=== PATIENT | male | born 1965 | race Caucasian/White ===

== ENCOUNTER 2016-08-30 20:39 | Observation (INO) | payer MEDICAID ==
--- NOTE | 2016-08-30 20:34 | EDPHY ---
HPI/HX/ROS/PE/MDM Narrative: CHIEF COMPLAINT: Chest pain, ICD shock HPI: This patient is a 51-year-old male with ICD in place for history of SVT and hypertrophic cardiomyopathy who presents to the Emergency Department following an episode of chest pain with associated dyspnea precipitating an ICD shock at 1930 tonight. He reports that he was gardening when he began to feel acutely short of breath with associated dry coughing. He went inside to sit down when he felt worsening chest pain just prior to the shock sensation. He was transported via helicopter to the ED and reports feeling lightheaded in transport, persisting to the present. He has no additional complaints. Denies chest pain, dyspnea, or palpitations. He takes Coreg and aspirin daily and is followed by Dr. Baker, cardiology. REVIEW OF SYSTEMS: Aside from elements discussed in the HPI, a comprehensive 10-point review of systems was reviewed and is negative. PMH: AV pacer, SVT with recent ablation, hypertrophic cardiomyopathy. SOCIAL HISTORY: Lives in [place]. PHYSICAL EXAM: General:Patient is alert, in no acute distress. ENT:Eyes are normal to inspection. ENT inspection normal. Neck: Normal inspection. Full range of motion. Respiratory:No respiratory distress. Breath sounds normal bilaterally. Cardiovascular: Regular rate and rhythm. Strong peripheral pulses. Normal cap refill. Abdomen:The abdomen is nontender to palpation. There are no peritoneal signs. There are normal bowel sounds. Back: Normal to inspection. No tenderness to palpation. Skin: Normal color. No rash. Warm and dry. Extremities: Normal appearance. Full range of motion. Neuro: Oriented x3. Normal motor function. Normal sensory function. ED Course: 51-year-old male presents following ICD shock at approximately 1930 after episode of chest pain, shortness of breath. He is asymptomatic apart from mild lightheadedness at time of arrival. There are no significant exam findings. Will proceed with EKG, labs, and chest x-ray along with consultation with the patient's recordist chief. EKG was ordered and interpreted by myself: ventricular-paced complexes, rate 74. Please see [employer] system for official reading. 2058: Consultation with Dr. Thompson, recordist chief. Chest x-ray read by Dr. Rico reveals no acute cardiopulmonary disease. Labs reviewed and are unremarkable. Troponin is negative. [employer] interrogation reveals that the patient suffered an episode of ventricular fibrillation at 1934 lasting for 45 seconds, prompting the shock. 2140: Repeat consultation with Dr. Thompson. He will review the Biotronik interrogation before determining his recommended next steps. 2150: Dr. Thompson has reviewed interrogation records and recommends admission to the hospitalist. 2153: Consultation with Dr. Ceron, hospitalist, who accepts admission. - Data Points Imaging Results: Imaging Impressions Chest X-Ray 08/30/16 20:47 Impression: 1. Pacemaker unit and leads in stable position. 2. No active cardiopulmonary disease seen. Laboratory Results: Laboratory Results 08/30/16 20:10 08/30/16 20:10 08/30/16 08/30/16 08/30/16 20:10 20:10 20:10 WBC 6.51 10^3/uL 10^3/uL (3.80-9.50) RBC 5.51 10^6/uL 10^6/uL (4.40-6.38) Hgb 16.2 g/dL g/dL (13.7-17.5) Hct 45.5 % % (40.0-51.0) MCV 82.6 fL fL (81.5-99.8) MCH 29.4 pg pg (27.9-34.1) MCHC 35.6 g/dL g/dL (32.4-36.7) RDW 12.4 % % (11.5-15.2) Plt Count 340 10^3/uL 10^3/uL (150-400) MPV 9.8 fL fL (8.7-11.7) Neut % (Auto) 43.4 % % (39.3-74.2) Lymph % (Auto) 45.8 % H % (15.0-45.0) [place] % (Auto) 7.4 % % (4.5-13.0) Eos % (Auto) 2.0 % % (0.6-7.6) Baso % (Auto) 0.9 % % (0.3-1.7) Nucleat RBC Rel Count 0.0 % % (0.0-0.2) Absolute Neuts (auto) 2.83 10^3/uL 10^3/uL (1.70-6.50) Absolute Lymphs (auto) 2.98 10^3/uL 10^3/uL (1.00-3.00) Absolute Monos (auto) 0.48 10^3/uL 10^3/uL (0.30-0.80) Absolute Eos (auto) 0.13 10^3/uL 10^3/uL (0.03-0.40) Absolute Basos (auto) 0.06 10^3/uL 10^3/uL (0.02-0.10) Absolute Nucleated RBC 0.00 10^3/uL 10^3/uL (0-0.01) Immature Gran % 0.5 % % (0.0-1.1) Immature Gran # 0.03 10^3/uL 10^3/uL (0.00-0.10) Sodium 137 mEq/L mEq/L (134-144) Potassium 3.8 mEq/L mEq/L (3.5-5.2) Chloride 102 mEq/L mEq/L (97-110) Carbon Dioxide 22 mEq/l mEq/l (22-31) Anion Gap 13 mEq/L mEq/L (8-16) BUN 16 mg/dL mg/dL (7-23) Creatinine 1.1 mg/dL mg/dL (0.7-1.3) Estimated GFR > 60 Glucose 112 mg/dL H mg/dL (70-100) Calcium 9.9 mg/dL mg/dL (8.5-10.4) Magnesium 2.1 mg/dL mg/dL (1.6-2.3) Troponin I 0.023 ng/mL ng/mL (0-0.034) General Initial Vital Signs: Initial Vital Signs O2 Sat (%) 99 08/30/16 20:40 O2 Delivery Mode Nasal Cannula O2 (L/minute) 2 Allergies/Adverse Reactions: No Known Allergies Allergy (Verified 08/16/13 16:01) Home Medications: Medication Instructions Recorded Aspirin [Aspirin 325 mg (*)] 325 mg PO DAILY 08/30/16 Famotidine [Pepcid] 40 mg PO HS 08/30/16 HYDROcodone/APAP 10 [[place] 1 tab PO Q6 PRN 08/30/16 10/325 (*)] [place]-3 Fatty Acids [Fish Oil 1000 1,000 mg PO DAILY 08/30/16 mg (*)] traMADol [Ultram 50 mg (*)] 50 mg PO DAILY PRN 08/30/16 Metoprolol Tartrate [Lopressor 50 50 mg PO BID #60 tab 08/31/16 mg (*)] Departure - Departure Disposition: [facility] Inpatient Acute Clinical Impression: Ventricular fibrillation, ICD (implantable cardioverter-defibrillator) discharge Condition: Fair Report Scribed for: Timmy Omer Report Scribed by: Aura Horne Date of Report: 08/30/16 Time of Report: 20:34 Physician Review and Approval Statement: Portions of this note were transcribed by an ED scribe. I personally performed the history, physical exam, and medical decision making; and confirm the accuracy of the information in the transcribed note.
--- NOTE | 2016-08-30 20:50 | CPEKG ---
Heart Rate: 74 RR Interval: 811 P-R Interval: 280 QRSD Interval: 162 QT Interval: 428 QTC Interval: 475 P Crane: 78 QRS Crane: -74 T Wave Crane: 107 EKG Severity - ABNORMAL ECG - EKG Impression: VENTRICULAR-PACED COMPLEXES EKG Impression: VENTRICULAR PACING IS NEW IN COMPARISON TO PRIOR (07-OCT-13) Electronically Signed By: Parrish Tamayo 01-Sep-2016 09:56:59
[2016-08-30 20:55] LABS: % IMMATURE GRANULYOCYTES 0.5 % (0.0-1.1); ABSOLUTE IMMATURE GRANULOCYTES 0.03 10^3/uL (0.00-0.10); ADD DIFF? NO; ADD MORPH? NO; ADD SCAN? NO; ATYPICAL LYMPHOCYTE FLAG 20 (0-99); FRAGMENT RBC FLAG 0 (0-99); HEMATOCRIT 45.5 % (40.0-51.0); HEMOGLOBIN 16.2 g/dL (13.7-17.5); LEFT SHIFT FLG 0 (0-99); LIPEMIA HEMOLYSIS FLAG 90 (0-99); MEAN CELL HEMOGLOBIN 29.4 pg (27.9-34.1); MEAN CELL HEMOGLOBIN CONCENTR. 35.6 g/dL (32.4-36.7); MEAN CELL VOLUME 82.6 fL (81.5-99.8); MEAN PLATELET VOLUME 9.8 fL (8.7-11.7); PLATELET CLUMPS FLAG 0 (0-99); PLATELET COUNT 340 10^3/uL (150-400); RED BLOOD CELL COUNT 5.51 10^6/uL (4.40-6.38); RED CELL DISTRIBUTION WIDTH 12.4 % (11.5-15.2)
[2016-08-30 21:13] LABS: ANION GAP 13 mEq/L (8-16); CALCIUM 9.9 mg/dL (8.5-10.4); CARBON DIOXIDE 22 mEq/l (22-31); CHLORIDE 102 mEq/L (97-110); CREATININE 1.1 mg/dL (0.7-1.3); GLOMERULAR FILTRATION RATE > 60; GLUCOSE 112 mg/dL (70-100); POTASSIUM 3.8 mEq/L (3.5-5.2); SODIUM 137 mEq/L (134-144)
[2016-08-30 21:24] LABS: TROPONIN I 0.023 ng/mL (0-0.034)
[2016-08-30] MEDS ORDERED: ACETAMINOPHEN 325 MG TAB PO PRN (22:05)
[2016-08-30] MEDS ORDERED: ONDANSETRON DISINTEGRATING 4 MG TAB PO PRN (22:05)
[2016-08-30] MEDS ORDERED: ONDANSETRON 4 MG/2 ML VIAL IVP PRN (22:05)
[2016-08-30] MEDS ORDERED: HYDROCODONE/APAP 10/325 TAB PO PRN (23:33)
[2016-08-30] MEDS ORDERED: traMADol 50 MG TAB PO PRN (23:33)
[2016-08-30] MEDS ORDERED: POTASSIUM CL 20 MEQ/15 ML UDCUP PO ONE (23:34)
[2016-08-30] MEDS ORDERED: POTASSIUM CL 20 MEQ TAB PO ONE (23:34)
--- NOTE | 2016-08-31 00:23 | GHP ---
[f rep st] HISTORY AND PHYSICAL DATE OF ADMISSION: 08/30/2016 CHIEF COMPLAINT: Chest pain. ICD shock. HISTORY OF PRESENT ILLNESS: Patient is a 51-year-old male with history of HOCM status post myomectomy and aortic valvuloplasty in 2009, SVT, who presented to the ER after an episode of chest pain, shortness of breath, and then ICD shock at 7:30 this evening. He was outside gardening when he felt short of breath and had a coughing attack. He sat down on his deck and had substernal chest pressure as if someone sitting on it, and then was shocked. Device interrogation showed 45 seconds of ventricular fibrillation. He had a similar episode approximately the same time last night under similar circumstance when watering plants. He felt short of breath, dizzy, and felt like blacking out. He had mild chest pain and then was shocked to a lesser degree. He saw Dr. Grissom at [facility] today for a scheduled echocardiogram. [place] fine during that visit, just fatigued. 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 Trying to stay hydrated. Has chest pain daily that exacerbated by heat. He thinks his chest pain has been less recently up until these last 2 days. REVIEW OF SYSTEMS: I completed a 10-point review of systems, negative except noted in HPI. PAST MEDICAL HISTORY: HOCM status post myomectomy, 2009. Aortic valvuloplasty. SVT. ICD placement, 2011. Alcohol septal ablation, July 2016. Evaluated by Dr. Pavon at [facility]. Nonobstructive CAD on catheterization in July 2016. PAST SURGICAL HISTORY: Myomectomy, 2009. Aortic valvuloplasty. ICD placement , 2011. Several bone fractures. FAMILY HISTORY: He was not close to family growing up but does not recall sudden cardiac . 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 Occasional alcohol. Occasional marijuana. No cigarettes. He has a 14-year-old son. ALLERGIES: No known drug allergies. MEDICATIONS: Coreg 37.5 b.i.d., recently up titrated. Tramadol 50 mg p.o. daily p.r.n. [place] as needed. Pepcid 40 mg q.h.s. Fish oil. Aspirin 325. PHYSICAL EXAMINATION: VITAL SIGNS: Temperature 36.9, blood pressure 118/55, heart rate 68, respirations 16, 97% on room air. GENERAL: Patient is lying in bed, in no acute distress. HEENT: PERRLA. EOMI. Moist mucous membranes. CV : Regular rate and rhythm. Murmur heard throughout. No lower extremity edema. LUNGS: Clear. No crackles or wheeze. ABDOMEN: Soft, nontender, nondistended. Positive bowel sounds. : No suprapubic tenderness. MUSCULOSKELETAL: 5/5 upper and lower extremity strength. SKIN: Warm, dry. No ulceration. NEURO: 2 through 12 intact. PSYCH: Alert and oriented x3. LABS: WBC 6, hemoglobin 16, hematocrit 45, platelets 340. Sodium 137, potassium 3.8 chloride 102, carbon dioxide 22, glucose 112. Calcium 9.9. Magnesium 2.1. Troponin 0.023. Chest x-ray personally reviewed by me. Pacemaker with leads in place. No effusion or opacity. EKG personally reviewed by me to be paced. ASSESSMENT AND PLAN: 1. Ventricular fibrillation with subsequent implantable cardioverter- defibrillator shock: 2 episodes in the last 2 days. 45-second event this evening with shock. Initial EKG and troponin negative for ischemia. Repeat both and monitor on telemetry in PCU. Dr. Thompson with Cardiology was consulted from the emergency room. Ensure potassium and magnesium are at 4 and 2. 2. HOCM: status post myomectomy and recently alcohol septal ablation in July 2016. He is followed by Dr. Pavon [facility]. Coreg was recently increased to 37.5.mg BID. 3. Chest pain: nonobstructive coronary disease seen on catheterization in July from [facility]. Will cycle troponin and EKG here. Continue beta-emre and aspirin. Cardiology to evaluate in the morning. 4. Diet: N.p.o. 5. Deep venous thrombosis prophylaxis. Low risk, ambulatory. DISPOSITION: Patient warrants observation admission given acute ventricular fibrillation with ICD shock. Will continue PCU monitoring on telemetry and cardiac evaluation. /[id number]/MODL MTDD
[2016-08-31 02:36] LABS: TROPONIN I 0.106 ng/mL (0-0.034)
[2016-08-31 07:27] VITALS: PULSE 61; RESP 16
[2016-08-31] MEDS ORDERED: CARVEDILOL 6.25 MG TAB PO SCH (08:00)
[2016-08-31] MEDS ORDERED: CARVEDILOL 25 MG TAB PO SCH (08:00)
[2016-08-31] MEDS ORDERED: ENOXAPARIN 40 MG/0.4 ML SYR SC SCH (09:00)
[2016-08-31] MEDS ORDERED: ASPIRIN 325 MG TAB PO SCH (09:00)
[2016-08-31] MEDS ORDERED: OMEGA-3 FATTY ACIDS 1,000 MG CAP PO SCH (09:00)
[2016-08-31 09:05] LABS: ANION GAP 8 mEq/L (8-16); CALCIUM 9.3 mg/dL (8.5-10.4); CARBON DIOXIDE 25 mEq/l (22-31); CHLORIDE 106 mEq/L (97-110); CREATININE 0.9 mg/dL (0.7-1.3); GLOMERULAR FILTRATION RATE > 60; GLUCOSE 95 mg/dL (70-100); POTASSIUM 4.5 mEq/L (3.5-5.2); SODIUM 139 mEq/L (134-144)
--- NOTE | 2016-08-31 11:25 | HOSPPROG ---
Hospitalist Progress Note Assessment/Plan: 51 yo male with hx of HOCM #Vfib, s/p ICD shock #Recent Septal Ablation July 2016 #Hypertrophic obstructive cardiomyopathys/p Myomectomy #Chest Pain, none currently #Indeterminate Troponin Plan: -Await reccs from Dr. Thompson -The patient sees Dr. Pavon at [facility] -Continue with Aspirin -Cont with Coreg -F/U TTE -Lovenox for DVT proph -EKG, personally reviewed, paced rhythm Subjective: No CP or SOB. Objective: Vital Signs Temp Pulse Resp BP Pulse Ox 36.6 C 61 16 109/59 L 94 08/31/16 07:26 08/31/16 07:26 08/31/16 07:26 08/31/16 07:26 08/31/16 07:26 Laboratory Results 08/31/16 08:29 08/30/16 08/31/16 09/01/16 05:59 05:59 05:59 Intake Total 240 Balance 240 - Physical Exam Constitutional: no apparent distress, not in pain Eyes: PERRL, EOMI Ears, Nose, Mouth, Throat: moist mucous membranes, hearing normal, ears appear normal Cardiovascular: systolic murmur, No JVD Respiratory: no respiratory distress, no rales or rhonchi, clear to auscultation Gastrointestinal: normoactive bowel sounds, soft, non-tender abdomen, no palpable masses Skin: warm Neurologic: AAOx3 Psychiatric: interacting appropriately, not anxious, not encephalopathic ICD10 Worksheet Patient Problems: Problems Problem Status Onset ICD (implantable cardioverter-defibrillator) discharge Acute Ventricular fibrillation Acute Hypertrophic cardiomyopathy Acute
--- NOTE | 2016-08-31 11:43 | ECHO ---
[id number] + + [phone] : : [place] [address] : : [phone] + + Adult Echocardiographic Report + -----+ :Name: ROBIN LUNDBERG JStudy Date: 08/31/2016 09:48 AM : : Hospital Admission Number: [id number] Location : 208: :: 1965 Gender: Male Height: 70 in : :Age: 51 yrs Race: WH,White Weight: 180 lb : :Reason For Study: HCM/VT : : BSA: 2.0 meters2 : :History: HOCM/Septal ablation/ICD/pacer : + -----+ MMode/2D Measurements \T\ Calculations MV Diam: 2.8 cm Ao root diam: LVOT diam: 2.5 cmLVLd ap4: 9.5 cm 3.6 cm LVOT area: EDV(MOD-sp4): LA dimension: 5.0 cm2 145.0 ml 5.2 cm LVLs ap4: 9.1 cm ESV(MOD-sp4): 66.0 ml EF(MOD-sp4): 54.5 % SV(MOD-sp4): 79.0 ml Normal Measurement Values: + + :LVIDd (3.5-5.7cm) IVSd (0.6-1.1cm) LVPWd (0.6-1.1cm) Aortic Root (2.0-3.7cm)Left Atrium (1.5-4.0cm): :LV Vol(d) (76-115ml) LV Vol(s) (29-48ml) Ejec Fraction (50-65%)PV Cortez (0.6- 1.2m/s) TV Cortez (0.4-1.0m/s) : :MV E [place] (0.8-1.0m/s)MV A [place] (0.3-1.0m/s)LVOT [place] (0.7-1.2m/s) Asc Ao [place] ( 0.9-1.8m/s) : + + Doppler Measurements \T\ Calculations MV area (1 diam): Ao mean PG: AI max cortez: LV V1 mean P.4 cm2 11.4 mmHg 396.1 cm/sec 5.0 mmHg MV Flow area(1diam):Ao V2 mean: AI max P.8 mmHgLV V1 mean: 154.4 cm/sec AI dec slope: 97.3 cm/sec 6.4 cm2 Ao V2 VTI: 47.3 cm 281.9 cm/sec2 LV V1 VTI: JUANITA(I,D): 3.6 cm2 AI P1/2t: 411.6 msec33.8 cm MR max cortez: SV(LVOT): 169.7 ml TR max cortez: 451.6 cm/sec 228.0 cm/sec MR max P.6 mmHg TR max P.8 mmHg RAP systole: 5.0 mmHg RVSP(TR): 25.8 mmHg Left Ventricle The left ventricle is normal in size. There is normal left ventricular wall thickness. Ejection Fraction = 55-60%. Septal motion is consistent with conduction abnormality. Focal area of akinesis in the mid anteroseptum. Right Ventricle The right ventricle is normal in size and function. There is a pacemaker lead in the right ventricle. Atria The left atrium is moderately dilated. Right atrial size is normal. The interatrial septum is intact with no evidence for an atrial septal defect. Mitral Valve MV leaflets appear to not coapt completely. The mitral valve leaflets appear thickened, but open well. There is no evidence of mitral valve prolapse. There is no mitral valve stenosis. There is moderate to severe mitral regurgitation. Tricuspid Valve Normal tricuspid valve. There is mild tricuspid regurgitation. Right ventricular systolic pressure is normal. Aortic Valve The aortic valve opens well. Mild Aortic Valve Calcification. AV max PG is 23mmHG. AV mean PG is 11mmHG. LVOT gradient today is 13mmHG. Moderate to severe aortic regurgitation. Pulmonic Valve The pulmonic valve is normal in structure and function. There is no pulmonic valvular regurgitation. Great Vessels The aortic root is normal size. Pericardium/Pleural There is no pericardial effusion. Conclusion A complete two-dimensional transthoracic echocardiogram was performed (2D, M-mode, Doppler and color flow Doppler). Normal LV size and systolic function. Septal motion is consistent with conduction abnormality related to pacing. Ejection Fraction = 55-60%. Focal area of akinesis in the mid anteroseptum. There is a pacemaker lead in the right ventricle. The left atrium is moderately dilated. The mitral valve leaflets are thickend. MV leaflets appear to not coapt completely. There is moderate to severe mitral regurgitation. There is mild tricuspid regurgitation. Mild aortic sclerosis. AV max PG is 23mmHG. AV mean PG is 11mmHG. LVOT gradient today is 13mmHG. Moderate to severe aortic regurgitation. There is no significant dynamic LVOT gradient. Final Reading Physician: Eriberto Mckeon signed on 08/31/2016 11:43 AM Ordering Physician: Mark Thompson Performed By: Zuleyka Quinn RDCS
[2016-08-31 11:56] VITALS: BP 103/46; TEMP 98; O2SAT 91
--- NOTE | 2016-08-31 13:24 | PDDCSUM ---
Discharge Summary Discharge Summary: 51 yo male with hx of HOCM admitted after 2 ICD shocks following Ventricular Tachycardia. Dr. Thompson with Cardiology provided consultation. They have stopped Carvedilol and started Metoprolol. They have also adjusted the ICD so that shock is delivered at 16 abnormal beats and not 8. The patient is stable. He has been cleared by Cards. He will need to f/u with [facility] Dr. Pavon and Dr. Yuen Denies CP, SOB, or other today. DDX #Vfib, s/p ICD shock #Recent Septal Ablation July 2016 #Hypertrophic obstructive cardiomyopathys/p Myomectomy #Chest Pain, none currently #Indeterminate Troponin D/c Exam: please see my progress note from today D/c meds: see med rec total care time spent on discharge is 35 mins including coordinating care with Cardiology.
--- NOTE | 2016-08-31 13:41 | GDS ---
[f rep st] DISCHARGE SUMMARY INDICATIONS: Hypertrophic cardiomyopathy, recent ICD discharge. HISTORY OF PRESENT ILLNESS: The patient is a very pleasant, 51-year-old male. He is typically foll owed as an outpatient by Dr. Mariano Baker. He has a history of hypertrophic cardiomyopathy with a s ignificant dynamic left ventricular outflow tract gradient. He underwent surgical myectomy by Dr. Saundra Narvaez back in 2009. In 2011, he had an ICD that was implanted. He has a dual-chamber ICD, which is a [employer] device i n place. He is followed additionally by Dr. Jhonatan Pavon at the [facility]. In July of this year, he underwent an alcohol septal ablation. That procedure was successful at significantly reducing his outflow tract gradient. Cardiac catheterizat ion at that time, did not demonstrate any significant coronary disease. He does have modest valvula r heart disease with previously known aortic insufficiency. He states that he typically feels well. He has a very active lifestyle. On August 29, and again ye , he experienced symptoms of abrupt onset chest pain, dyspnea and diaphoresis. He thinks that he sustained a defibrillator shock on the . Yesterday evening, he was also watering his plants when he experienced a similar sensation of chest pain and p alpitations. He notes that he experienced a severe shock at that time. Subsequently, he took himse lf to the nearest fire department and was airlifted to our hospital, where on arrival he was hemodyn amically stable, in sinus rhythm with a ventricularly paced complex. I had his defibrillator interrogated today. This demonstrated episodes of rapid ventricular tachyca rdia that fell into the ventricular fibrillation zone on August 29, this was terminated with ATP. Liz castano had 2 additional episodes yesterday evening, also rapid ventricular tachycardia in the ventricular fibrillation zone, initially treated with ATP. He did respond on both occasions to ATP therapy. Liz castano received a committed shock from the device per device protocol, when he was in sinus rhythm and ve ntricular pacing. Today, he states he feels well. He has not started any new medications. He take s no vuxa-kpo-foiytue medications. His workup here has been benign. PAST MEDICAL HISTORY: 1. Hypertrophic cardiomyopathy, as described above. 2. History of valvular heart disease, as described above. PAST SURGICAL HISTORY: He has had multiple fractures in the past. He has had septal myectomy and I CD placement, as well as alcohol septal ablation, as described above. FAMILY HISTORY: There is no family history of sudden . He is unsure of whether or not there a re family members who have hypertrophic cardiomyopathy. 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 [facility] alcohol rarely and marijuana rarely. He does not smoke. He has a 14-year-old son, who lives wit h him. ALLERGIES: None. MEDICATIONS: Include Coreg 37.5 mg twice daily, tramadol 50 mg as needed, [place] as needed. Pepcid 40 mg nightly and aspirin. REVIEW OF SYSTEMS: A full 10-point review of systems was performed and was otherwise negative. PHYSICAL EXAMINATION: VITAL SIGNS: Currently his blood pressure is 103/46, with a mean of 65, a he art rate of 61 beats per minute, and room air saturations of 91%. GENERAL: He is a very healthy, white male, in no acute distress. HEENT: Normocephalic, atraumatic. He has anterior sclerae. Oropharynx unremarkable. Carotids are 2+ bilaterally with no bruits. He has no jugular venous distention, thyromegaly, or adenopathy. RESPIRATORY: He is [facility] in [facility], using no accessory muscles. On auscultation, he has clear lung mejia bilaterally. CARDIAC: P recordial inspection demonstrates an ICD in the left infraclavicular fossa. His PMI is nondisplaced . On auscultation, he has a regular rate and rhythm, with a 1/6 systolic ejection murmur at the lef t sternal border, which does not augment with Valsalva. ABDOMEN: Soft and nontender. He has normo active bowel sounds, with no hepatosplenomegaly or masses. EXTREMITIES: Warm and dry, and well per fused. VASCULATURE: He has 2+ radial, dorsal pedal and posterior tibial pulses. DATABASE: His electrocardiogram demonstrates sinus rhythm with atrial tracking and ventricular paci ng and occasional PVCs. Telemetry demonstrates similar findings with occasional PVCs. His chest x- ray demonstrated findings consistent with his previous sternotomy, and ICD with no acute processes. Sodium is 137, potassium 3.8, chloride 102, BUN 16, creatinine 1.1, glucose 112, calcium 9.9. TSH 2 .83. Initial troponin 0.023, subsequently 0.106, and subsequently 0.074, Magnesium is 2.1. CBC is normal. IMPRESSION: The patient is a pleasant 51-year-old male with a cardiovascular history as detailed ab yinae, characterized predominantly by hypertrophic cardiomyopathy with previous septal myectomy in 201 0, and more recently, about 2 months ago an alcohol septal ablation. Historically, he has had only a single episode of treated ventricular tachycardia, which also fell in the ventricular fibrillation zone back in January of 2015. He presents now with 4 episodes of treated rapid ventricular tachyc ardia in the ventricular fibrillation zone. In reviewing the electrograms from his ICD, he has had several episodes of very rapid VT. The detection interval is 8 beats, and at that point, he receives ATP with termination. He has also had several episodes of n onsustained ventricular tachycardia of 9 and 10 beats duration. It is difficult to know whether or not these treated events would of been sustained or whether they were simply nonsustained episodes t hat were appropriately recognized and treated based on his current program parameters. Because of t his, he received a committed shock during a period of time when he was in sinus rhythm. I did discu ss this case both with Dr. Baker and Dr. Jhonatan Pavon from the [facility]. To start wi th, I think we should change him from Coreg to metoprolol. Recommend dose from Dr. Pavon was 50 m g twice daily. I would also like to preprogram his device to increase the detection interval to 16 beats. I think that this will help reduce the number of inappropriate shocks and ATP therapies. I do not think that he requires any additional testing or further therapies at this time. He will fol low up with Dr. Pavon within the next month. It should also be noted that he does have fairly sig nificant valvular heart disease based on his most recent echocardiogram. He has at least moderate t o severe mitral and aortic insufficiency. This obviously needs to be followed closely. I appreciate the opportunity to assist in this patient's care. /[id number]/MODL
[2016-08-31] MEDS ORDERED: METOPROLOL TARTRATE 50 MG TAB PO SCH (21:00)
[2016-08-31] MEDS ORDERED: FAMOTIDINE 20 MG TAB PO SCH (21:00)
== END 2016-08-31 15:59 | disposition home or self-care (01) ==
LOC: EDUNIT# → F2W 22:47
PROVIDERS: ADMIT Internal Medicine; ATTEND Internal Medicine Cardiovascular Disease
DX: I47.2 Ventricular tachycardia (principal); I42.1 Obstructive hypertrophic cardiomyopathy; Z95.810 Presence of automatic (implantable) cardiac defibrillator
CPT/HCPCS: 71020; 93005; 93306; 99285; G0378; J1650

== ENCOUNTER 2017-02-13 14:43 | Observation (INO) | payer MEDICAID ==
--- NOTE | 2017-02-13 14:51 | EDPHY ---
H & P Stated Complaint: Defib has gone off several times Time Seen by Provider: 02/13/17 14:51 - Personal History Current Tetanus Diphtheria and Acellular Pertussis (TDAP): Yes Tetanus Vaccine Date: 2013? - Medical/Surgical History Hx Asthma: No Hx Chronic Respiratory Disease: No Hx Diabetes: No Hx Cardiac Disease: No Hx Renal Disease: No Hx Cirrhosis: No Hx Alcoholism: No Hx HIV/AIDS: No Hx Splenectomy or Spleen Trauma: No Other PMH: AVR & MVR repair w/ aneurysm repair 08/2011. RHD, GERD. 08/16/13 ICD / PPM placed, hypertropic cardiomyopathy with ablation July 12, 2016. - Social History Smoking Status: Never smoked Constitutional: Initial Vital Signs Temperature (C) 36.6 C 02/13/17 14:47 Heart Rate 72 02/13/17 14:47 Respiratory Rate 18 02/13/17 14:47 Blood Pressure 136/64 H 02/13/17 14:47 O2 Sat (%) 96 02/13/17 14:47 O2 Delivery Mode Room Air Allergies/Adverse Reactions: No Known Allergies Allergy (Verified 02/13/17 14:47) Home Medications: Medication Instructions Recorded Aspirin [Aspirin 325 mg (*)] 325 mg PO DAILY 08/30/16 Famotidine [Pepcid] 40 mg PO HS 08/30/16 HYDROcodone/APAP 10325 [[place] 1 tab PO Q6 PRN 08/30/16 10/325 (*)] [place]-3 Fatty Acids [Fish Oil 1000 1,000 mg PO DAILY 08/30/16 mg (*)] traMADol [Ultram 50 mg (*)] 50 mg PO DAILY PRN 08/30/16 Metoprolol Tartrate [Lopressor 50 50 mg PO BID #60 tab 08/31/16 mg (*)] Medical Decision Making - Diagnostics Imaging Results: Imaging Impressions Chest X-Ray 02/13/17 14:59 Impression: No significant radiographic abnormality. Specifically, a source for chest pain is not identified. Imaging: I viewed and interpreted images myself ED Course/Re-evaluation: CHIEF COMPLAINT: Defibrillator going off; dyspnea HISTORY OF PRESENT ILLNESS: The patient is a 51 y/o male with a history of obstructive hypertrophic cardiomyopathy and several related cardiac surgeries complaining of multiple defibrillator shocks and dyspnea onset 20 minutes ago. He says he felt a "series of small shocks and 2 big shocks" over the last 20 minutes. He says he "had a sneaking suspicion" his defibrillator would trigger when he began to feel short of breath. He normally "works through" the shocks and waits for them to go away, but instead they got progressively worse. He currently denies chest pain, but feels anxious, short of breath, and slightly lightheaded and dizzy. No recent illness or trauma. REVIEW OF SYSTEMS: A 10 point review of systems was performed and is negative with the exception of the elements mentioned in the history of present illness. PHYSICAL EXAM: HR, BP 100/52, O2 Sat, RR. Temp noted General Appearance: Alert, well hydrated, appropriate, and non-toxic appearing. Head: Atraumatic without scalp tenderness or obvious injury Eyes: Pupils equal, round, reactive to light and accommodation, EOMI, no trauma , no injection. Ears: Clear bilaterally, no perforation, normal landmarks Nose: Atraumatic, no rhinorrhea, clear. Throat: There is no erythema or exudates, no lesions, normal tonsils, mucus membranes moist. Neck: Supple, nontender, no lymphadenopathy. Respiratory: No retractions, no distress, no wheezes, and no accessory muscle use. Lungs are clear to auscultation bilaterally. Cardiovascular: Regular rate and rhythm, no murmurs, rubs, or gallops. Good capillary refill all extremities. Gastrointestinal: Abdomen is soft, nontender, non-distended, no masses, no rebound, no guarding, no peritoneal signs. Musculoskeletal: Normal active ROM of all extremities, atraumatic. Neurological: Alert, appropriate, and interactive. The patient has non-focal cranial nerves, motor, sensory, and cerebellar exam. Skin: No rashes, good turgor, no nodules on palpation. Past medical history: Obstructive hypertrophic cardiomyopathy - Dr. Baker; GERD Past surgical history: Biotronic pacemaker and ICD placed by Dr. Barajas 08/2013; mitral valve and aortic valve repairs with aortic aneurysm repair 08/2011; myomectomy June 2016 at [facility]. Family history: Noncontributory Social history: Friend at bedside. 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 Prior medical records reviewed including admission 08/30/16 for chest pain and ICD shock. DIAGNOSTICS/PROCEDURES/CRITICAL CARE TIME: Chest x-ray: negative for acute process The 12 lead EKG was interpreted by myself. Ventricular-paced rhythm. See hard copy and/or "tracemaster" electronic copy for interpretation. DIFFERENTIAL DIAGNOSIS: The differential diagnosis for the patient's shortness of breath included but was not limited to cardiac dysrhythmia, ICD shocks, pneumonia, myocardial infarction, acute mountain sickness, high altitude pulmonary edema, congestive heart failure, and pulmonary embolus. MEDICAL DECISION MAKING: This is a 51 y/o male with a history of obstructive hypertrophic cardiomyopathy and multiple related cardiac surgeries who presents after a series of multiple ICD shocks and associated preceding dyspnea just prior to arrival here. On initial exam, he is hemodynamically stable and completely alert & oriented. Due to his valvular repairs and myomectomies, he is at an increased risk for dysrhythmias, which prompted the placement of his ICD. Because he had dyspnea preceding each discharge today, it is likely he had a shockable rhythm prior to each shock; we will confirm this with pacemaker interrogation. Additionally plan for IV, labs, EKG, chest x-ray, and admission. 1519: Consulted with Dr. Tamayo, cardiology. He agrees with admission and will have Dr. Broderick consult on patient. 1540: Spoke with [employer] after interrogation of pacemaker. She confirms a couple episodes of V-tach resulting in one defibrillation shock during the patient's reported symptoms. Some episodes were not shocked because the patient did not reach the rate threshold or spontaneously converted. The smaller episodes the patient was describing likely represent chest pain from V-tach. 1552: Consulted with Dr. Broderick, electrophysiology sales agent business services. Zone 1 will add overdrive pacing attempts for future V-tach. He will be admitted for consideration of additional medication therapy and other pacemaker/ICD adjustments. 1602: Spoke with Dr. Quiñonez, hospitalist. He accepts admission. He requests administering 1gm IV magnesium due to mag of 1.8. - Data Points Laboratory Results: Laboratory Results 02/13/17 15:00 02/13/17 15:00 02/13/17 02/13/17 02/13/17 15:00 15:00 15:00 WBC 8.68 10^3/uL 10^3/uL (3.80-9.50) RBC 5.57 10^6/uL 10^6/uL (4.40-6.38) Hgb 16.5 g/dL g/dL (13.7-17.5) Hct 44.9 % % (40.0-51.0) MCV 80.6 fL L fL (81.5-99.8) MCH 29.6 pg pg (27.9-34.1) MCHC 36.7 g/dL g/dL (32.4-36.7) RDW 12.7 % % (11.5-15.2) Plt Count 279 10^3/uL 10^3/uL (150-400) MPV 9.1 fL fL (8.7-11.7) Neut % (Auto) 54.1 % % (39.3-74.2) Lymph % (Auto) 35.8 % % (15.0-45.0) [place] % (Auto) 7.5 % % (4.5-13.0) Eos % (Auto) 1.7 % % (0.6-7.6) Baso % (Auto) 0.7 % % (0.3-1.7) Nucleat RBC Rel Count 0.0 % % (0.0-0.2) Absolute Neuts (auto) 4.69 10^3/uL 10^3/uL (1.70-6.50) Absolute Lymphs (auto) 3.11 10^3/uL H 10^3/uL (1.00-3.00) Absolute Monos (auto) 0.65 10^3/uL 10^3/uL (0.30-0.80) Absolute Eos (auto) 0.15 10^3/uL 10^3/uL (0.03-0.40) Absolute Basos (auto) 0.06 10^3/uL 10^3/uL (0.02-0.10) Absolute Nucleated RBC 0.00 10^3/uL 10^3/uL (0-0.01) Immature Gran % 0.2 % % (0.0-1.1) Immature Gran # 0.02 10^3/uL 10^3/uL (0.00-0.10) PT 13.4 SEC SEC (12.0-15.0) INR 1.00 (0.83-1.16) APTT 26.3 SEC SEC (23.0-38.0) Sodium 143 mEq/L mEq/L (134-144) Potassium 4.4 mEq/L mEq/L (3.5-5.2) Chloride 107 mEq/L mEq/L (97-110) Carbon Dioxide 21 mEq/l L mEq/l (22-31) Anion Gap 15 mEq/L mEq/L (8-16) BUN 16 mg/dL mg/dL (7-23) Creatinine 0.9 mg/dL mg/dL (0.7-1.3) Estimated GFR > 60 Glucose 93 mg/dL mg/dL (70-100) Calcium 10.1 mg/dL mg/dL (8.5-10.4) Magnesium 1.8 mg/dL mg/dL (1.6-2.3) Troponin I < 0.012 ng/mL ng/mL (0.000-0.034) NT-Pro-B Natriuret Pep 1000 pg/mL H pg/mL (0-125) Departure - Departure Disposition: [facility] Inpatient Acute Clinical Impression: ICD (implantable cardioverter-defibrillator) discharge, Hypertrophic cardiomyopathy, Lightheaded, Ventricular tachycardia Dyspnea Qualifiers: Dyspnea type: shortness of breath Qualified Code(s): R06.02 - Shortness of breath Condition: Fair Referrals: Mariano Baker MD [Primary Care Provider] - As per Instructions Report Scribed for: Jeremy Rodríguez Report Scribed by: Mel Murhpy Date of Report: 02/13/17 Time of Report: 15:19
--- NOTE | 2017-02-13 14:58 | CPEKG ---
Heart Rate: 79 RR Interval: 759 P-R Interval: 248 QRSD Interval: 200 QT Interval: 460 QTC Interval: 528 P [place]: 46 QRS [place]: -72 T Wave [place]: 104 EKG Severity - ABNORMAL ECG - EKG Impression: ATRIAL-SENSED VENTRICULAR-PACED COMPLEXES Electronically Signed By: Jeremy Rodríugez 13-Feb-2017 20:41:27
[2017-02-13 15:09] LABS: % IMMATURE GRANULYOCYTES 0.2 % (0.0-1.1); ABSOLUTE IMMATURE GRANULOCYTES 0.02 10^3/uL (0.00-0.10); ADD DIFF? NO; ADD MORPH? NO; ADD SCAN? NO; ATYPICAL LYMPHOCYTE FLAG 10 (0-99); FRAGMENT RBC FLAG 0 (0-99); HEMATOCRIT 44.9 % (40.0-51.0); HEMOGLOBIN 16.5 g/dL (13.7-17.5); LEFT SHIFT FLG 0 (0-99); LIPEMIA HEMOLYSIS FLAG 90 (0-99); MEAN CELL HEMOGLOBIN 29.6 pg (27.9-34.1); MEAN CELL HEMOGLOBIN CONCENTR. 36.7 g/dL (32.4-36.7); MEAN CELL VOLUME 80.6 fL (81.5-99.8); MEAN PLATELET VOLUME 9.1 fL (8.7-11.7); PLATELET CLUMPS FLAG 20 (0-99); PLATELET COUNT 279 10^3/uL (150-400); RED BLOOD CELL COUNT 5.57 10^6/uL (4.40-6.38); RED CELL DISTRIBUTION WIDTH 12.7 % (11.5-15.2)
[2017-02-13 15:22] LABS: ANION GAP 15 mEq/L (8-16); CALCIUM 10.1 mg/dL (8.5-10.4); CARBON DIOXIDE 21 mEq/l (22-31); CHLORIDE 107 mEq/L (97-110); CREATININE 0.9 mg/dL (0.7-1.3); GLOMERULAR FILTRATION RATE > 60; GLUCOSE 93 mg/dL (70-100); MAGNESIUM 1.8 mg/dL (1.6-2.3); POTASSIUM 4.4 mEq/L (3.5-5.2); SODIUM 143 mEq/L (134-144)
[2017-02-13 15:30] LABS: PROTIME(PATIENT) 13.4 SEC (12.0-15.0)
[2017-02-13 15:31] LABS: APTT 26.3 SEC (23.0-38.0); TROPONIN I < 0.012 ng/mL (0.000-0.034)
[2017-02-13] MEDS ORDERED: oxyCODONE IR 5 MG TAB PO PRN (16:02)
[2017-02-13] MEDS ORDERED: ONDANSETRON 4 MG/2 ML VIAL IVP PRN (16:02)
[2017-02-13] MEDS ORDERED: ONDANSETRON DISINTEGRATING 4 MG TAB PO PRN (16:02)
[2017-02-13] MEDS ORDERED: ACETAMINOPHEN 325 MG TAB PO PRN (16:02)
[2017-02-13] MEDS ORDERED: MAGNESIUM SULF 1 GM/DEXTROSE 100 ML IV ONE (16:03)
[2017-02-13] MEDS ORDERED: HYDROCODONE/APAP 10/325 TAB PO PRN (17:06)
--- NOTE | 2017-02-13 17:11 | PDGENHP ---
History and Physical - Chief Complaint Acute chest pain - History of Present Illness Primary care provider: Dr. Tom Roberts Primary furniture installer: Dr. Mariano Baker Primary cardiothoracic surgeon: Dr. Pavon at [facility] HPI: 51-year-old male presenting with acute chest pain characterized as "shock "with associated lightheadedness, chronic dyspnea on exertion, with these "shocks "beginning on the day prior to presentation and occurring intermittently thereafter. 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 The patient describes little shocks and big shocks, with the most recent 1 occurring 20 min prior to arrival. He otherwise denies any lower extremity edema, and he reports he is taking all of his home medications. His last encounter with Dr. Baker was in November of 2016, and the patient feels like he has otherwise been doing well since that time. History Information - Allergies/Home Medication List Allergies/Adverse Reactions: No Known Allergies Allergy (Verified 02/13/17 14:47) Home Medications: Aspirin [Aspirin 325 mg (*)] 325 mg PO DAILY 08/30/16 [Last Taken 02/13/17 06:00 ] HYDROcodone/APAP 10/325 [[place] 10/325 (*)] 1 tab PO BID PRN 08/30/16 [Last Taken 02/13/17 11:00 1/2 TAB] [place]-3 Fatty Acids [Fish Oil 1000 mg (*)] 1,000 mg PO DAILY 08/30/16 [Last Taken 02/13/17 06:00] traMADol [Ultram 50 mg (*)] 50 mg PO HS 08/30/16 [Last Taken 02/12/17 21:00] Herbals/Supplements -Info Only 1 ea PO DAILY 02/13/17 [Last Taken 02/13/17 08:00 ] Pantoprazole Sodium [Protonix 40mg (*)] 40 mg PO DAILY@17 02/13/17 [Last Taken 02/12/17 17:00] Vitamin B Complex [B Complex] 1 tab PO Q2D 02/13/17 [Last Taken 02/13/17 06:00] I have personally reviewed and updated: family history, medical history, social history, surgical history - Past Medical History Additional medical history: Hypertrophic obstructive cardiomyopathy status post myomectomy in 2009. SVT. Previous episodes of the tab all the into ventricular fibrillation, terminated by his device. Moderate severe mitral regurgitation and aortic insufficiency - Surgical History Additional surgical history: Aortic valve repair, mitral valve repair, AICD placement in 2009. 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 Review of Systems Review of Systems: ROS: 10pt was reviewed & negative except for what was stated in HPI & below Cardiac: Reports: chest pain Respiratory: Reports: shortness of breath Physical Exam Physical Exam: Temp Pulse Resp BP Pulse Ox 36.6 C 70 20 118/60 98 02/13/17 14:47 02/13/17 15:16 02/13/17 15:16 02/13/17 15:16 02/13/17 15:16 Constitutional: no apparent distress, appears nourished, not in pain Eyes: PERRL, anicteric sclera, EOMI Ears, Nose, Mouth, Throat: moist mucous membranes, hearing normal, ears appear normal, no oral mucosal ulcers Cardiovascular: systolic murmur (3/6 at the apex), diastolic murmur (3/6 at right sternal border), No irregularly irregular, No tachycardia, No edema Respiratory: no respiratory distress, no rales or rhonchi, clear to auscultation Gastrointestinal: normoactive bowel sounds, soft, non-tender abdomen, no palpable masses Skin: warm, normal color, no rashes or abrasions, no fluctuance, no induration, No mottled Neurologic: AAOx3, sensation intact bilaterally, No weakness Psychiatric: interacting appropriately, not anxious, not encephalopathic, thought process linear Lab Data & Imaging Review 02/13/17 15:00 02/13/17 15:00 WBC 8.68 10^3/uL (3.80-9.50) 02/13/17 15:00 RBC 5.57 10^6/uL (4.40-6.38) 02/13/17 15:00 Hgb 16.5 g/dL (13.7-17.5) 02/13/17 15:00 Hct 44.9 % (40.0-51.0) 02/13/17 15:00 MCV 80.6 fL (81.5-99.8) L 02/13/17 15:00 MCH 29.6 pg (27.9-34.1) 02/13/17 15:00 MCHC 36.7 g/dL (32.4-36.7) 02/13/17 15:00 RDW 12.7 % (11.5-15.2) 02/13/17 15:00 Plt Count 279 10^3/uL (150-400) 02/13/17 15:00 MPV 9.1 fL (8.7-11.7) 02/13/17 15:00 Neut % (Auto) 54.1 % (39.3-74.2) 02/13/17 15:00 Lymph % (Auto) 35.8 % (15.0-45.0) 02/13/17 15:00 [place] % (Auto) 7.5 % (4.5-13.0) 02/13/17 15:00 Eos % (Auto) 1.7 % (0.6-7.6) 02/13/17 15:00 Baso % (Auto) 0.7 % (0.3-1.7) 02/13/17 15:00 Nucleat RBC Rel Count 0.0 % (0.0-0.2) 02/13/17 15:00 Absolute Neuts (auto) 4.69 10^3/uL (1.70-6.50) 02/13/17 15:00 Absolute Lymphs (auto) 3.11 10^3/uL (1.00-3.00) H 02/13/17 15:00 Absolute Monos (auto) 0.65 10^3/uL (0.30-0.80) 02/13/17 15:00 Absolute Eos (auto) 0.15 10^3/uL (0.03-0.40) 02/13/17 15:00 Absolute Basos (auto) 0.06 10^3/uL (0.02-0.10) 02/13/17 15:00 Absolute Nucleated RBC 0.00 10^3/uL (0-0.01) 02/13/17 15:00 Immature Gran % 0.2 % (0.0-1.1) 02/13/17 15:00 Immature Gran # 0.02 10^3/uL (0.00-0.10) 02/13/17 15:00 PT 13.4 SEC (12.0-15.0) 02/13/17 15:00 INR 1.00 (0.83-1.16) 02/13/17 15:00 APTT 26.3 SEC (23.0-38.0) 02/13/17 15:00 Sodium 143 mEq/L (134-144) 02/13/17 15:00 Potassium 4.4 mEq/L (3.5-5.2) 02/13/17 15:00 Chloride 107 mEq/L (97-110) 02/13/17 15:00 Carbon Dioxide 21 mEq/l (22-31) L 02/13/17 15:00 Anion Gap 15 mEq/L (8-16) 02/13/17 15:00 BUN 16 mg/dL (7-23) 02/13/17 15:00 Creatinine 0.9 mg/dL (0.7-1.3) 02/13/17 15:00 Estimated GFR > 60 02/13/17 15:00 Glucose 93 mg/dL (70-100) 02/13/17 15:00 Calcium 10.1 mg/dL (8.5-10.4) 02/13/17 15:00 Magnesium 1.8 mg/dL (1.6-2.3) 02/13/17 15:00 Troponin I < 0.012 ng/mL (0.000-0.034) 02/13/17 15:00 NT-Pro-B Natriuret Pep 1000 pg/mL (0-125) H 02/13/17 15:00 Visualized and Interpreted Chest x-ray results: Yes Chest X-Ray results: no infiltrate Visualized and Interpreted EKG results: Yes EKG Interpretation: Positive for: other (Atrial sensed, ventricularly paced) Assessment & Plan Assessment: 51-year-old male presents with acute AICD shock in the setting of acute ventricular tachycardia Plan: 1. Ventricular tachycardia. Acute, new problem this provider, further workup indicated. Symptomatic, likely resulting in his "small shocks ", leading his device to perform "big shocks " -discussed with Dr. Jeremy Rodríguez, he reports that he has discussed with Dr. Carlos Broderick and Dr. Broderick is recommending the patient be observed overnight, consider antiarrhythmic medication adjustment -continue monitor on telemetry -reviewed outside records including 08/31/2016, consultation by Dr. Mark Thompson , reports that the patient was experiencing ventricular tachycardia at that time which morphine to ventricular fibrillation, which was terminated by ATP, he elected to change the patient's Coreg to metoprolol 50 mg twice daily and adjust the device setting so that the patient would not receive a shock unless he creates a 16 beat run of the ventricular at arrhythmia -continue metoprolol tartrate at this time -discussed with Marck Henley, he has the patient has a device interrogation report at this time 2. Moderate to severe mitral regurgitation and aortic insufficiency. Chronic, may require repeat echocardiogram at this time to gauge whether the valve worsening has increased patient's a susceptibility to ventricular arrhythmias -currently no evidence of acute CHF -continue monitor volume status Diet. Cardiac, Prophylaxis. High risk patient given immobility, Lovenox 40 Code. Full Disposition. Anticipated discharge is 02/14, pending stabilization of condition outlined above.
[2017-02-13] MEDS: METOPROLOL TARTRATE 50 MG TAB PO SCH (20:30)
--- NOTE | 2017-02-13 20:43 | GCON ---
[f rep st] CONSULTATION CARDIOLOGY CONSULTATION REASON FOR CONSULTATION: History of hypertrophic cardiomyopathy with AICD discharge this afternoon. HISTORY OF PRESENT ILLNESS: The patient is a 51-year-old male, who is known to our practice. His primary adjuster is, Dr. Mariano Baker. He has significant history of hypertrophic cardiomyopathy with previous history of significant dynamic LVOT gradient. In the past, he has had surgical myectomy by Dr. Narvaez in 2011. He has more recently underwent septal ablation at [facility] in June of this year. He also has significant history of AICD implantation, left aortic valve leaflet valvuloplasty done during his myectomy in 2011, and known valvular heart disease with most recent echocardiogram showing moderate to severe MR and AI. The patient reports he had been in his normal state of health, until yesterday, in which he has noticed brief episodes of "little shocks." He describes these episodes as a sudden sensation of mild shortness of breath that lasts briefly, not associated with a significant chest pressure or pain. He reports these symptoms are similar to what he has had when he had brief episodes of VT in the past. He denies any worsening shortness of breath, and has had no real significant symptoms of heart failure. Denying of any increased swelling or weight gain. He admits that he has been very active. 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 Today, he was at work. He noticed a few episodes of these "little shocks," when suddenly he felt a significant hard hitting shock in his mid chest. He felt that his automatic internal defibrillator had discharge. At that time, he asked his friend to bring him into the hospital for further evaluation. He reports he has had no chest pressure or pain. Reports no significant worsening in shortness of breath. Denies any feelings of palpitations. Denies any orthopnea, PND, or edema. He has had no recent fever, chills, or night sweats. Upon arrival to the Emergency Department, initial electrocardiogram was done showing that he was in A-sensed V-paced rhythm. Chest x-ray showing no significant acute cardiopulmonary process. Laboratory studies drawn showing mildly elevated BNP of 1000, but negative troponin level. Finalta escrow representative came up and interrogated the device, showing since his last device check December 02, 2016, he has had 2 episodes of ventricular tachycardia, both happening today. Initial one was around 3:00, in which the device was prepared to charge, but the rhythm broke, and then the second one happen around 3:20, in which the device delivered appropriate therapy. At the current time, the patient remains in A-sense V-pace, with no tachycardias. No arrhythmia noted since initial hospitalization. He denies any chest pressure or pain. PAST MEDICAL HISTORY: The patient has significant past medical history that includes: 1. Hypertrophic cardiomyopathy with left ventricular outflow tract obstruction. 2. VT and VF. 3. Valvular heart disease with most recent echocardiogram showing moderate to severe MR and AI. 4. Bulging disk disease. 5. Chronic lower back pain. PAST SURGICAL HISTORY: 1. Surgical myectomy in 2011. 2. AICD implantation in 2011. 3. Alcohol septal ablation done in June of [address] [facility]. 4. Cardiac catheterization done. Per Dr. Mark Thompson's note, talking to [facility] physicians, no significant heart disease was noted at that time. 5. Left aortic leaflet valvuloplasty done in 2011. FAMILY HISTORY: The patient reports no significant family history of sudden cardiac or heart disease. SOCIAL HISTORY: The patient works construction. He is active. He is not . He is a father of a 14-year-old boy, who is alive and healthy. He reports occasional alcohol intake, less than 1-2 beers a week. Reports occasional marijuana use, last dosage last evening. Denies any other illicit drug use. ALLERGIES: The patient currently reports no known drug allergies. MEDICATIONS: At home include: Protonix 40 mg p.o. daily, vitamin B 1 tablet p.o. every 2 days, tramadol 50 mg p.o. h.s., omega-3 1,000 mg p.o. daily, metoprolol tartrate 50 mg p.o. b.i.d., [place] 1 tablet p.o. b.i.d. p.r.n., aspirin 325 mg p.o. daily. REVIEW OF SYSTEMS: A 10-point review of systems done on patient all negative, except as mentioned above. PHYSICAL EXAMINATION: GENERAL: Medium built, well-groomed, male. He is alert and oriented to person, place, time, and situation. Appears to be under no acute distress. VITAL SIGNS: Current vital signs are blood pressure of 132/62, heart rate is 82, A-sensed V-paced rhythm, respirations 16, saturating 93% on room air. HEENT: Head is normocephalic. Lips and tongue are pink and moist with no signs of cyanosis. Conjunctivae pink. NECK: Trachea is midline. No carotid bruits. No jugular vein distention. LUNGS: Clear to auscultation. No rhonchi, rales or wheezes. No accessory muscle use. No intercostal muscle retraction noted. CARDIAC: Regular rate, regular rhythm, S1, S2, 1-2/6 systolic murmur noted in the right and left upper chest. ABDOMEN: Soft, nontender, bowel sounds x4 quadrants. No organomegaly. No palpable masses. SKIN: [place], warm, dry. No cyanosis. No clubbing. No peripheral edema. VASCULAR: +2 carotids bilateral, +2 radials bilateral, +1 dorsal pedal and posterior tibial pulses bilateral. LABORATORY STUDIES: Drawn today showed WBC of 8.68, hemoglobin of 16.5, hematocrit of 44.9, platelet count of 279, INR 1.0, sodium 143, potassium 4.4, chloride 107, CO2 21, BUN 16, creatinine 0.9, glucose 93, calcium 10.1, magnesium 1.8, troponin less than 0.012, proBNP 1,000. Electrocardiogram, as mentioned above. Chest x-ray, as mentioned above. Pacemaker interrogation, as mentioned above. The patient's most recent echocardiogram was done August 31, 2016, during a previous episode hospital admission for VT with AICD shock. At that time, it showed normal LV size and systolic function, septal motion consistent with conduction abnormal T related to pacing. EF was 55%-60%. Focal area of akinesis in mid anterior septum. LA is moderately dilated. Mitral valve leaflets are thickened. Moderate to severe MR, mild TR, mild aortic sclerosis. Aortic valve peak gradient was 23 mmHg. Maximum gradient was 23 mmHg. Mean gradient was 11 mm of gradient. LVOT gradient was 13 mmHg. Moderate to severe AI. No significant dynamic LVOT gradient. Most recent cardiac catheterization was done (per Dr. Mark Thompson's consultation note in August of 2016) at [facility] in June 2016, which found no significant coronary artery disease, done at the time of his septal ablation. ASSESSMENT AND PLAN: 1. Ventricular tachycardia: The patient with therapeutic appropriate shock from automatic implantable cardioverter defibrillator, noting to have 2 runs of ventricular tachycardia since last device check in November (both episodes today). The patient reports he has been medication compliant. Negative troponin level on admission.. Potassium, magnesium both within normal limits. At this time, per Dr. Broderick's recommendation, [employer] has reprogrammed his device to have ATP therapy prior to shocking. We also will continue him on his current dose of home metoprolol. 2. As for his complaint of mild episodes of quick shortness of breath as he describes as "mini shocks" question if possible arrhythmia. He will remain on continuous leadite heater, and we will follow up. Evaluate for possible ACS, patient continued to have cycle troponins. He is noted to have a normal cardiac catheterization in June [address] [facility]. 3. Valvular heart disease: The patient with known valvular heart disease with most recent echocardiogram showing moderate to severe MR and AI. We will plan for him to have a repeat echocardiogram done tomorrow. He is noted to have a mildly elevated BNP, but denies any significant weight gain. He does report some mild abdominal bloating over the last few days, questioning potentially some symptoms of heart failure. He has no significant JVD, and appears fairly euvolemic. I would like him to get a CMP tomorrow to evaluate his liver function. We will have him do daily weights. Consideration of adding a diuretic to his medication regimen. Will reevaluate in a.m. Thank you for this consultation. I have discussed the patient with both Dr. Quiñonez of hospitalist services, and Dr. Broderick. /[id number]/MODL MTDD
[2017-02-13] MEDS ORDERED: traMADol 50 MG TAB PO SCH (21:00)
[2017-02-14 05:52] LABS: ANION GAP 11 mEq/L (8-16); CARBON DIOXIDE 24 mEq/l (22-31); CHLORIDE 106 mEq/L (97-110); CREATININE 0.8 mg/dL (0.7-1.3); GLOMERULAR FILTRATION RATE > 60; GLUCOSE 85 mg/dL (70-100); MAGNESIUM 2.1 mg/dL (1.6-2.3); POTASSIUM 4.5 mEq/L (3.5-5.2); SODIUM 141 mEq/L (134-144); TROPONIN I 0.025 ng/mL (0.000-0.034)
[2017-02-14 06:32] LABS: ALANINE AMINOTRANSFERASE 38 IU/L (21-72); ALBUMIN 3.8 g/dL (3.5-5.0); ALKALINE PHOSPHATASE 52 IU/L (38-126); ASPARTATE AMINOTRANSFERASE 30 IU/L (17-59); BILIRUBIN,TOTAL 0.7 mg/dL (0.1-1.4); TOTAL PROTEIN 6.4 g/dL (6.3-8.2)
[2017-02-14] MEDS: METOPROLOL TARTRATE 50 MG TAB PO SCH (08:39)
[2017-02-14] MEDS ORDERED: ENOXAPARIN 40 MG/0.4 ML SYR SC SCH (09:00)
[2017-02-14] MEDS ORDERED: OMEGA-3 FATTY ACIDS 1,000 MG CAP PO SCH (09:00)
[2017-02-14] MEDS ORDERED: ASPIRIN 325 MG TAB PO SCH (09:00)
[2017-02-14] MEDS ORDERED: Herbals/Supplements -Info Only PO SCH (09:00)
--- NOTE | 2017-02-14 09:39 | ASMTCMCOM ---
CM Note CM Note Notes: 02/14/2017 Case Management Note Reviewed chart. There are no case management d/c needs identified d/t pt age, activity levels prior to admission and employment status. There are no PT or OT evals ordered. Case Management d/c poc: Home independent with follow up as directed. Case Management available if needs change. Date Signed: 02/14/2017 09:38 AM Electronically Signed By:Kenyatta Simpson RN
[2017-02-14 11:40] VITALS: RESP 18
[2017-02-14] MEDS ORDERED: FUROSEMIDE 20 MG TAB PO SCH (11:45)
--- NOTE | 2017-02-14 12:14 | ECHO ---
[email or web address] [address] Main: [phone] Fax: [email or web address] Echocardiogram Name: ROBIN LUNDBERG MR#: [id number] Study Date: 02/14/2017 Study Time: 09:59 AM Date of : 1965 Age: 51 year(s) Height: 177.8 cm (70 in.) Weight: 83.92 kg (185 lb.) BSA: 2.02 m2 Gender: Male Examination: Echo Indication: AICD activation, Myomectomy 2011, Aortic valve valvuloplasty, Septal Ablation 2016 Image Quality: Contrast: Requested by: Marck Henley BP: 120 mmHg/61 mmHg Heart Rate: Rhythm: Pacemaker rhythm Indication: AICD activation, Myomectomy 2011, Aortic valve valvuloplasty, Septal Ablation 2016 Procedure Staff Sausage Mixer: Mathieu Cox Reading Physician: Cristian Gusman Requesting Provider: Conclusions: Normal size left ventricle. EF is 48 %. There is paradoxic septal motion suggestive of bundle branch block, paced cardiac rhythm, or prior cardiac surgery. There is a pacemaker lead noted in the right ventricle. The left atrium is moderately to severely dilated. There is mild thickening of the mitral valve leaflets. Moderate to severe mitral regurgitation. Aortic sclerosis is present. Moderate to severe aortic regurgitation. Mild calcific aortic valve stenosis. Mild tricuspid regurgitation is present. Estimated PA systolic pressure is48 mmHg. Compared to 08/31/2016, LV systolic function has decreased slightly. Measurements: Chambers Valvular Assessment AV/MV Valvular Assessment TV/PV Normal Normal Normal Name Value Range Name Value Range Name Value Range Ao Monalisa (MM): 3.5 cm (2.2 cm-3.7 AV Vmax: 2.50 m/s (1 m/s-1.7 TR Vmax: 3.29 mm/s ( - ) cm) m/s) TR PGmax: 43 mmHg ( - ) IVSd (2D): 1.1 cm (0.6 cm-1.1 AV maxP mmHg ( - ) syst. PAP: 48 mmHg ( - ) cm) AV meanP mmHg ( - ) PV Vmax: 0.98 m/s (0.6 m/s-0.9 LVDd (2D): 6.0 cm (4.2 cm-5.9 JUANITA (VTI): 2.3 cm ( - ) m/s) cm) AR (PHT): 465 ms ( - ) PV PGmax: 4 mmHg ( - ) LVDs (2D): 5.0 cm (2.1 cm-4 MV E Vmax: 1.39 m/s ( - ) cm) MV A Vmax: 0.86 m/s ( - ) LVPWd (2D): 1.3 cm (0.6 cm-1 cm) MV E/A: 1.62 ( - ) MV meanP mmHg ( - ) Patient: ROBIN LUNDBERG Study Date: 02/14/2017 Page 1 of 2 09:59 AM LVOTd 2.1 cm 2.1 cm mm MVA (Vmax): 2.9 m/s ( - ) LVEF (BP): 48 % (>=55 %) Continued Measurements: Chambers Valvular Assessment AV/MV Valvular Assessment TV/PV Name Value Name Value Name Value LADs Lon.3 cm MV Annulus: 4.4 cm CVP (est.): 5 mmHg LA Area: 27.6 cm2 MV VTI: 48.50 cm LA Volume: 97 ml MR Vena Contracta: 0.7 cm LA Volume Index: 48.0 ml/m2 MR ERO: 0.340 cm2 MR PISA radius: 10 mm MR Reg. Volume: 59 ml MR Reg. Fraction: 8 % AR Vmax: 4.13 cm/s AR ERO: 0.310 cm2 AR PISA radius: 0.7 cm AR Reg. Volume: 67.0 ml AR Reg. Fraction: 48 % AR VTI: 215.0 cm Findings: Left Ventricle: Normal size left ventricle. No BRENNAN is present. Normal global systolic LV function. EF is 48 %. There is paradoxic septal motion suggestive of bundle branch block, paced cardiac rhythm, or prior cardiac surgery. Right Ventricle: Normal RV function. There is a pacemaker lead noted in the right ventricle. Left Atrium: The left atrium is moderately to severely dilated. The LA ESV index is 48.0 ml/m2. Right Atrium: The right atrium is normal in size. Mitral Valve: There is mild thickening of the mitral valve leaflets. Moderate to severe mitral regurgitation. No BRENNAN is present. The MR ERO is .34 cm2 with a mitral Volume of 61 ml. Aortic Valve: The aortic valve is tri-leaflet. Aortic sclerosis is present. Moderate to severe aortic regurgitation. Mild calcific aortic valve stenosis. The AI ERO is .31cm2 with a AI Volume of 67 ml The LVOT mean PG is 7 mmHg.. Tricuspid Valve: The tricuspid valve is normal in appearance and function. Mild tricuspid regurgitation is present. Pulmonic Valve: The pulmonic valve is normal in appearance and function. Aorta: The aorta is normal. Pericardium: No pericardial effusion. (No Signature Object) Patient: ROBIN LUNDBERG Study Date: 02/14/2017 Page 2 of 2 09:59 AM [id number]
--- NOTE | 2017-02-14 13:45 | PDCARPN ---
Cardiology Progress Note Chief Complaint: patient reports he would like to go home. Assessment/Plan: Assessment: 51-year-old male with known significant history hypertrophic cardiomyopathy with previous history of significant dynamic LVOT gradient. Previous surgical history including surgical myectomy in 2011, septal ablation June 2016, valvular heart disease with moderate MR and AI, history of VT VF , remote AICD implantation. Admitted 02/13 for AICD shock. [employer] rep interrogated device in ED, showing 2 episodes of VT since his last device check on 12/02/2016 , both happening yesterday 1 at 3:00 p.m. which self-terminated , 2nd episode happening around 3:20 , with appropriate therapy delivered. He has denied of any chest pain or symptoms of ischemia. Does note that over the last few days is some mild shortness of breath, and reports mild bloating. Emergency department laboratory studies showing normal potassium level, magnesium level, negative troponin at 0.012, and BNP at 1000. Today, patient reports no further shocks. Denies of any chest pressure or pain. Reports no significant shortness of breath. Repeated troponin levels have been within normal limits. Repeated a.m. lab showing potassium magnesium within normal limits. Continuous cardiac monitoring overnight shows A sense V paced rhythm , occasional PVC, but no VT, pauses, or malignant arrhythmias. Echocardiogram done today showing EF of 48%, normal LV size, paradoxical septal motion of LV suggesting bundle-branch emre paced cardiac rhythm , LA is moderately to severely dilated, mild thickening of mitral valve leaflets, moderate to severe MR, aortic sclerosis is noted , moderate to severe AI, mild TR, mild calcified forehead aortic valve stenosis, pulmonary artery systolic pressure is estimated at 48 mm Hg.. In comparison to previous echocardiogram done August of this year, EF has dropped from 55-60% down to 48. Plan: 1. VT: No further episodes noted overnight. Patient has been resumed on home beta-emre. Appropriate therapy was given yesterday, only 1 shock was delivered. Patient did have a self terminating run of VT. Program changes to device with set ATP therapy per Dr. Broderick. Normal potassium and magnesium level. Negative troponins. Cardiac Cath 06/2016 with no disease at [facility]. Patient can be discharged home at this time, will plan for him to follow-up with Dr. Barajas of electrophysiology Services Monday of this week. Patient has been told that he should not drive until cleared by EP services. BMP and magnesium level Monday of this week. 2. Hypertrophic cardiomyopathy with previous LVOT gradient: Patient with history of myectomy 2011, and alcohol septal ablation of June 2016. Patient with no significant LVOT gradient on echocardiogram today. Continue on medication management. 3. Valvular heart disease: Repeated echocardiogram which today show moderate to severe MR and AI, and moderate . Patient patient noted to have mildly elevated BNP at a 1000, PA pressures also noted to be elevated at 48 mm Hg. Patient reporting symptoms of dyspnea on exertion and mild abdominal bloating. No significant signs of heart failure on examination. Will attempt to place patient on low-dose Lasix at 20 mg p.o. q.day. Will also start him on supplemental potassium at 10 mEq q.day. Like him to have a repeated BMP and magnesium level Monday of this week. Potentially, patient will need to have valvular heart disease fixed in the near future, will follow as an outpatient. 4. BEJARANO: Patient reporting SOB over the last few days. Elevated BNP on admission, elevated pulmonary pressures of 48, ejection fraction noted to be mildly down from August from 55-60 down to 48. Start on diuretic therapy as above , continue beta blockage therapy. Plan was discussed with both Dr. Broderick and Dr Alexander. 02/14/17 13:40 Subjective: patient denies of any chest pressure or pain. Reports no shortness of breath, has had no palpitations, orthopnea, PND lightheadedness, near-syncope or syncopal events. Reporting no therapeutic shocks from his AICD overnight. Reviewed/Discussed With: hospitalist (Dr Alexander), other (Dr Broderick and Dr Gusman) Objective: Vital Signs (8 Hrs) Temp Pulse Resp BP Pulse Ox 02/14/17 11:33 36.6 C 76 18 114/67 97 02/14/17 07:11 36.8 C 70 16 120/61 96 Intake/Output (24 Hrs) 02/13/17 02/14/17 02/15/17 05:59 05:59 05:59 Intake Total 475.2 750 Output Total 400 1350 Balance 75.2 -600 Intake: Oral (ml) 375 750 IV Infused (ml) 100.2 Magnesium Sulf 1 gm/ 100.2 Dextrose 100 ml @ 100 mls /hr IV [facility] ONE Rx#: [id number] Output: Urine (ml) 400 1350 Toilet 400 1350 Other: Weight 85.332 kg 82.3 kg Intake Quantity Yes Sufficient Number of Voids Toilet 1 Result Diagrams: 02/13/17 15:00 02/14/17 03:16 Cardiac Labs: Cardiac Lab Results (72 Hrs) 02/14/17 03:16 Troponin I 0.025 - Physical Exam Constitutional: healthy appearing, no apparent distress Ears, Nose, Mouth, Throat: moist mucous membranes Cardiovascular: regular rate and rhythm, no rubs, no gallops, systolic murmur (3 /6 Right and left upper border), pulses symmetric bilat, No jugular vein distention, No carotid bruit Peripheral Pulses: 1+: dorsalis-pedis (R), dorsalis-pedis (L), 2+: carotid (R), carotid (L) Respiratory: clear to auscultate bilat, no crackles, no wheezes, No reduced air movement Gastrointestinal: normoactive bowel sounds, no tenderness Skin: no rashes, warm, no edema Neurologic: AAOx3 Psychiatric: cooperative, interactive, following commands ICD10 Worksheet Patient Problems: Problems Problem Status Onset Hypertrophic cardiomyopathy Acute Ventricular fibrillation Acute ICD (implantable cardioverter-defibrillator) discharge Acute Dyspnea Acute Lightheaded Acute Ventricular tachycardia Acute
--- NOTE | 2017-02-14 14:34 | PDDCSUM ---
Discharge Summary Discharge Summary: DISCHARGE DIAGNOSES: -recurrent ventricular tachycardia, status post discharge of his AICD device -hypertrophic cardiomyopathy, status post myectomy -valvular heart disease with mitral and aortic valves involved -dyspnea on exertion gradually worsening at home -pulmonary hypertension likely due to valvular heart disease CONSULTANTS: Marck Helney of cardiology PROCEDURES: Echocardiogram Interrogation of AICD device; reprogramming of device to include AT pacing protocol Cardiac EKG monitoring HOSPITAL COURSE SUMMARY: This patient with a history of hypertrophic cardiomyopathy and ventricular tachycardia with AICD device, comes in after a discharge of his AICD device. He was interrogated as versus device in a does show an episode of ventricular tachycardia that was aborted by the device. Patient has not had any angina. He rule out for OK in his evaluation here. 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 His device was reprogrammed to include a pacing protocol and he will follow up in the electrophysiology Clinic this week. The patient does describe having worsening dyspnea on exertion at home, but no orthopnea and no ankle edema, no cough or other pulmonary symptoms per se. He was found to have evidence of very mild CHF and on echocardiogram has a decrease in his ejection fraction to 48% from 55 previously and also has a pulmonary systolic pressure 48. His echocardiogram is otherwise unchanged from prior, with stable aortic and mitral valve disease and no regional wall motion changes. It is elected to start him on some Lasix and potassium at this time and follow up again this week to see how he is tolerating that and whether it is improving his symptoms. PENDING TEST RESULTS: None MEDICATION CHANGES: Addition of Lasix 20 mg daily Addition of potassium chloride 10 mEq daily FOLLOW-UP PLAN: Dr. Gould in EP Clinic in 3 days, appointment has been made Greater than 35 minutes bedside and care coordination time today
[2017-02-14 15:39] VITALS: BP 103/50; PULSE 63; TEMP 98.1; O2SAT 93
--- NOTE | 2017-02-14 16:55 | ASDISCHSUM ---
Discharge Information Plan Status:Home with No Needs Medically Cleared to Leave:02/13/2017 Discharge Date:02/14/2017 03:38 PM CM D/C Disposition:Home, Routine, Self-Care ADT D/C Disposition:Home, Routine, Self-Care Projected Discharge Date:02/14/2017 03:38 PM Transportation at D/C:Self Discharge Delay Reason: Follow-Up Date:02/14/2017 03:38 PM Discharge Slot: Final Diagnosis: Placement Information Patient Contact Information Contact Name:PHILLIP Relationship:Friend Address: City:[facility] Alternate Phone: [facility] Code:[place] Email: Financial Information Financial Class: Primary Plan Desc:[employer] Primary Plan Number:[id number] Secondary Plan Desc: Secondary Plan Number: Assessment Information [facility] CM Progress Note CM Note CM Note Notes: 02/14/2017 Case Management Note Reviewed chart. There are no case management d/c needs identified d/t pt age, activity levels prior to admission and employment status. There are no PT or OT evals ordered. Case Management d/c poc: Home independent with follow up as directed. Case Management available if needs change. Date Signed: 02/14/2017 09:38 AM Electronically Signed By:Kenyatta Simpson RN Intervention Information
[2017-02-14] MEDS ORDERED: PANTOPRAZOLE SODIUM 40 MG TAB PO SCH (17:00)
[2017-02-15] MEDS ORDERED: VITAMIN B COMPLEX 1 EA CAP/TAB PO SCH (09:00)
[2017-02-15] MEDS ORDERED: POTASSIUM CL 10 MEQ TAB PO SCH (09:00)
== END 2017-02-14 15:38 | disposition home or self-care (01) ==
LOC: F2W 17:53
PROVIDERS: ADMIT Internal Medicine; ATTEND Internal Medicine
DX: I47.2 Ventricular tachycardia (principal); I42.1 Obstructive hypertrophic cardiomyopathy; R06.09 Other forms of dyspnea; I08.0 Rheumatic disorders of both mitral and aortic valves; I27.29 Other secondary pulmonary hypertension
CPT/HCPCS: 71020; 93005; 93283; 93306; G0378; J1650; J3475

== ENCOUNTER 2017-04-13 09:34 | Inpatient (IN) | payer MEDICAID ==
[2017-04-13] MEDS ORDERED: DIAZEPAM 5 MG TAB ONE (11:05)
[2017-04-13] MEDS ORDERED: diphenhydrAMINE 25 MG CAP PO ONE (11:05)
--- NOTE | 2017-04-13 11:19 | PDPROPOC ---
Sedation Plan of Care Sedation Plan of Care: mental status noted ASA Classification: ASA 3 Planned drugs: fentanyl, midazolam Mallampati Score: Class 2 Mallampati Reference Image: Patient passed 3-3-2 rule?: Yes
--- NOTE | 2017-04-13 11:19 | PDHPUP ---
History & Physical Update H&P update statement: This history and physical update is based on an assessment of the patient which was completed after admission or registration (within 24 hours), but prior to the surgery/procedure. H&P update: H&P reviewed & patient examined, no change in patient's condition since H&P completed
--- NOTE | 2017-04-13 11:29 | PDDXCAT ---
Diagnostic Cath Note - . Date: 04/21/17 Theater Usher: Samuel Indication: other (Planned surgery, preoperative heart cath) - Procedure Access: left wrist Procedure: left heart catheterization, coronary angiography, left ventriculogram - Materials Left Heart Cath size: 6F Left Heart Cath materials: standard multipack (JL4, JR4, pigtail) - Findings-Left Heart Catheterization LM: It is 6mm in size and trifurcates into an LAD, ramus and circumflex system. LAD: The LAD is 3 mm in size. NICK III flow. LCX: The circumflex is 4mm in size. NICK III flow. RCA: The conus branch arises from a separate ostium above the main right coronary. The RCA is dominant and provides NICK III flow. Ramus: The ramus is 2 mm in size. NICK III flow. EDP: 25mmHg LVEF: It is impaired at 35-40% Wall motion: There are segmental wall motion abnormalities involving the anterior wall and apex with asssociated 3+mitral regurgitaiton. the basal inferior wall is also hypokinetic. Left ventricular outflow tract has a filling defect suggestive of HOCM. Complications: None. Estimated blood loss: <50ml Closure method: TR Band Assessment: The patient has no evidence of flow limiting obstruction, dissection , or thrombus. There is NICK III flow throughout. The patient has [place] vessel coronary disease without evidence of flow limting obstruction. The EF is impaired at 35-40%. Plan: The patient will proceed with valvular surgery as planned. Consider LV lead placement for possible pacer induced cardiomyopathy. Please consultwith Meggan/ Karl prior to surgery for consideration of LV epicardial lead back to current pacer AICD pocket. Intervention: None. Patient Problems: Problems Problem Status Onset Acute blood loss anemia Acute Mitral valve insufficiency and aortic valve insufficiency Acute S/P ablation of ventricular arrhythmia Acute ~04/14/17 S/P aortic valve replacement with bioprosthetic valve Acute ~04/14/17 S/P mitral valve replacement with bioprosthetic valve Acute ~04/14/17 S/P ventricular septal myectomy Acute ~04/14/17 s/p LV epicardial lead placement x 2 Acute ~04/14/17 Hypertrophic cardiomyopathy Chronic NSVT (nonsustained ventricular tachycardia) Chronic Presence of combination internal cardiac defibrillator (ICD) and pacemaker Chronic
[2017-04-13] MEDS ORDERED: CHLORHEXIDINE GLUC HIBICLENS 118 ML BTL TP SCH (21:00)
[2017-04-13] MEDS: MUPIROCIN 2% 22 GM OINT NS SCH (22:22)
[2017-04-13] MEDS: SENNOSIDES/DOCUSATE SODIUM TAB PO SCH (22:22)
[2017-04-14] MEDS ORDERED: INSULIN REGULAR HUMAN 100 UNIT in NS 100 ML IV ONE (06:00)
[2017-04-14] MEDS ORDERED: CITRATE DEXTROSE SOLN 500 ML BAG MISC ONE (06:00)
[2017-04-14] MEDS ORDERED: MANNITOL 25% 12.5 GM/50 ML VIAL IVP ONE (06:00)
[2017-04-14] MEDS ORDERED: SODIUM BICARBONATE 20 MEQ, LIDOCAINE 1% 10 ML in NORMOSOL-R 1,000 ML MISC ONE (06:00)
[2017-04-14] MEDS ORDERED: TRANEXAMIC ACID 1,000 MG in NS (SYRINGE) 50 ML IV ONE (06:00)
[2017-04-14] MEDS ORDERED: NOREPINEPHRINE BITARTRATE 16 MG in NS 250 ML IV ONE (06:00)
[2017-04-14] MEDS ORDERED: MILRINONE/DEXTROSE 100 ML IV ONE (06:00)
[2017-04-14] MEDS ORDERED: DOBUTamine/DEXTROSE 250 ML IV ONE (06:00)
[2017-04-14] MEDS ORDERED: EPINEPHrine 8 MG in NS 250 ML IV ONE (06:00)
[2017-04-14] MEDS ORDERED: PHENYLEPHRINE HCL 50 MG in NS 250 ML IV ONE (06:00)
[2017-04-14] MEDS ORDERED: ceFAZolin 2 GM/SWFI 2 GM/20 ML SYR IVP ONE (06:00)
[2017-04-14] MEDS ORDERED: LR 1,000 ML IV ONE (06:19)
[2017-04-14] MEDS: MUPIROCIN 2% 22 GM OINT NS SCH ×2 (06:37→21:39)
[2017-04-14] MEDS ORDERED: LIDOCAINE 2% 5 ML SDV ONE (06:47)
[2017-04-14] MEDS ORDERED: PHENYLEPHRINE 10 MG/ML SDV ONE (06:48)
[2017-04-14] MEDS ORDERED: ROCURONIUM 100 MG/10 ML VIAL ONE ×2 (06:48→10:28)
[2017-04-14] MEDS ORDERED: fentaNYL 250 MCG/5 ML INJ ONE ×3 (06:51→10:28)
[2017-04-14] MEDS ORDERED: PROPOFOL 200 MG/20 ML VIAL ONE (06:52)
[2017-04-14] MEDS ORDERED: MIDAZOLAM 2 MG/2 ML VIAL IVP ONE (07:03)
--- NOTE | 2017-04-14 07:03 | PDANEPAE ---
ANE History of Present Illness tissue avr, possible mvr ANE Past Medical History - Cardiovascular History Hx Hypertension: Yes Hx Arrhythmias: Yes Hx Chest Pain: No Hx Coronary Artery / Peripheral Vascular Disease: No Hx CHF / Valvular Disease: Yes Hx Palpitations: Yes - Pulmonary History Hx COPD: No Hx Asthma/Reactive Airway Disease: No Hx Recent Upper Respiratory Infection: No Hx Oxygen in Use at Home: No Hx Sleep Apnea: No Sleep Apnea Screening Result - Last Documented: Positive - Neurologic History Hx Cerebrovascular Accident: No Hx Seizures: No Hx Dementia: No - Endocrine History Hx Diabetes: No - Renal History Hx Renal Disorders: No - Liver History Hx Hepatic Disorders: No - Neurological & Psychiatric Hx Hx Neurological and Psychiatric Disorders: Yes Neurological / Psychiatric History Comment: foot drop left - Cancer History Hx Cancer: No - Congenital Disorder History Hx Congenital Disorders: No - GI History Hx Gastrointestinal Disorders: Yes Gastrointestinal History Comment: pre cancerous polyps removed. reflux - Chronic Pain History Chronic Pain: Yes (back pain) ANE Review of Systems Review of Systems: - Exercise capacity METS (RN): 4 METS - Pacemaker Pacemaker Type: Permanent Pacer/Defib Pacemaker Hand Therapist: [employer] Pacemaker Model: Ilesto 7 DR-T Pacemaker Mode: DDDR Date Pacemaker Last Checked: 03/08/17 ANE Patient History - Allergies Allergies/Adverse Reactions: No Known Allergies Allergy (Verified 04/03/17 17:18) - Home Medications Home Medications: Amitriptyline HCl [Elavil] 25 mg PO HS PRN 04/10/17 [Last Taken Unknown] Aspirin EC [Aspirin EC 325 mg (*)] 325 mg PO DAILY 04/10/17 [Last Taken 05:00] HYDROcodone/APAP 10/325 [[place] 10/325 (*)] 1 tab PO Q6 PRN 04/10/17 [Last Taken Unknown] Lidocaine 5% [Lidoderm 5% Patch (*)] 1 ea TD DAILY 04/10/17 [Last Taken Unknown] Metoprolol Tartrate [Lopressor 50 mg (*)] 50 mg PO BID 04/10/17 [Last Taken 10/21 06:00] [place]-3 Fatty Acids [Fish Oil 1000 mg (*)] 1,000 mg PO DAILY 04/10/17 [Last Taken Unknown] Pantoprazole Sodium [Protonix 40mg (*)] 40 mg PO HS 04/10/17 [Last Taken 19:00] - NPO status NPO Status: no food or drink >8 hours NPO Since - Liquids (Date): 04/13/17 NPO Since - Liquids (Time): 23:30 NPO Since - Solids (Date): 04/13/17 NPO Since - Solids (Time): 22:10 - Smoking Hx Smoking Status: Never smoked - Family Anes Hx Family Hx Anesthesia Complications: none ANE Labs/Vital Signs - Labs Result Diagrams: 04/14/17 03:43 - Vital Signs Blood Pressure: 122/61 Heart Rate: 84 Respiratory Rate: 18 O2 Sat (%): 96 Height: 175.26 cm Weight: 83.4 kg ANE Physical Exam - Airway Mallampati Score: Class 2 Mouth exam: normal dental/mouth exam, poor dentition - Pulmonary Pulmonary: no respiratory distress - Cardiovascular Cardiovascular: regular rate and rhythym - ASA Status ASA Status: IV ANE Anesthesia Plan Anesthesia Plan: general endotracheal anesthesia Lines/Monitors: arterial line, central line, NAKITA
--- NOTE | 2017-04-14 07:16 | PDHPUP ---
History & Physical Update H&P update statement: This history and physical update is based on an assessment of the patient which was completed after admission or registration (within 24 hours), but prior to the surgery/procedure. H&P changes: no obstructive coronary or carotid disease. ICD deactivated. PPM reprogrammed DDD, lower rate 60.
[2017-04-14] MEDS ORDERED: LABETALOL HCL 5 MG/ML 20 ML MDV ONE (08:08)
[2017-04-14] MEDS ORDERED: MIDAZOLAM 2 MG/2 ML VIAL ONE ×2 (09:23→10:28)
[2017-04-14] MEDS ORDERED: KETAMINE 200 MG/20 ML VIAL ONE (12:48)
[2017-04-14] MEDS ORDERED: DEXMEDETOMIDINE/NS 4MCG/ML 50 ML BTL IV ONE (12:58)
[2017-04-14] MEDS ORDERED: SUGAMMADEX SODIUM 200 MG/2 ML VIAL IVP ONE (13:10)
[2017-04-14] MEDS ORDERED: MEPERIDINE 25 MG/ML SYR IVP PRN (13:32)
[2017-04-14] MEDS ORDERED: CEPACOL LOZENGE PO PRN (13:32)
[2017-04-14] MEDS ORDERED: HYDROCODONE/APAP 5/325 TAB PO PRN (13:32)
[2017-04-14] MEDS ORDERED: D50W 25 GM/50 ML SYR IVP PRN (13:32)
[2017-04-14] MEDS ORDERED: PANTOPRAZOLE SODIUM 40 MG VIAL IVP ONE (13:32)
[2017-04-14] MEDS ORDERED: SODIUM CL NASAL 45 ML BTL EACHNARE PRN (13:32)
[2017-04-14] MEDS ORDERED: LACTULOSE 20 GM/30 ML UDCUP PO PRN (13:32)
[2017-04-14] MEDS ORDERED: MAGNESIUM SULF 2 GM/WATER 50 ML IV ONE (13:32)
[2017-04-14] MEDS ORDERED: ACETAMINOPHEN 650 MG SUPP PR PRN (13:32)
[2017-04-14] MEDS ORDERED: ACETAMINOPHEN 325 MG TAB PO PRN (13:32)
[2017-04-14] MEDS ORDERED: MAGNESIUM HYDROXIDE 30 ML UDCUP PO PRN (13:32)
[2017-04-14] MEDS ORDERED: BISACODYL 10 MG SUPP PR PRN (13:32)
[2017-04-14] MEDS ORDERED: POLYETHYLENE GLYCOL 3350 17 GM PKT PO PRN (13:32)
[2017-04-14] MEDS ORDERED: NALOXONE HCL 0.4 MG/ML INJ IVP PRN (13:59)
--- NOTE | 2017-04-14 13:59 | POSTANESTH ---
Post Anesthetic Evaluation Cardiovascular Status: Other, See Comment (stable on infusions) Respiratory Status: Other, See Comment (stable on vent) Level of Consciousness/Mental Status: Other, See Comment (sedated with precedex) Pain Control: Adequate, Prn Tx Ordered Nausea/Vomiting Control: Adequate, Prn Tx Ordered Complications Possibly Related to Anesthesia: None Noted
[2017-04-14] MEDS ORDERED: ceFAZolin 2 GM/DEXTROSE 100 ML IV SCH (14:00)
[2017-04-14] MEDS: fentaNYL 100 MCG/2 ML INJ IVP PRN ×2 (14:00→16:23)
[2017-04-14] MEDS: DEXMEDETOMIDINE IN 0.9 % NACL 50 ML IV SCH ×2 (14:00→16:52)
[2017-04-14] MEDS ORDERED: INSULIN REGULAR HUMAN 100 UNIT in NS 100 ML IV SCH (14:00)
[2017-04-14] MEDS ORDERED: fentaNYL 100 MCG/2 ML INJ ONE (14:06)
[2017-04-14] MEDS ORDERED: ALBUMIN 5% 250 ML BOTTLE IV ONE (14:07)
[2017-04-14] MEDS ORDERED: VECURONIUM BROMIDE 10 MG VIAL ONE (14:16)
[2017-04-14] MEDS ORDERED: NA BICARBONATE 50 MEQ/50 ML VIAL ONE (14:17)
[2017-04-14] MEDS: ALBUMIN 5% 250 ML IV SCH ×2 (14:20→14:26)
[2017-04-14] MEDS ORDERED: NA BICARBONATE 50 MEQ/50 ML VIAL IV ONE (14:45)
[2017-04-14] MEDS ORDERED: VECURONIUM BROMIDE 10 MG VIAL IV ONE (14:45)
[2017-04-14] MEDS: ceFAZolin 2 GM/SWFI 2 GM/20 ML SYR IVP SCH ×2 (14:54→21:35)
[2017-04-14] MEDS ORDERED: niCARdipine/NACL/200 ML BAG IV ONE (15:18)
--- NOTE | 2017-04-14 15:27 | ECHO ---
[email or web address] [address] [address] Main: [phone] Fax: Transthoracic Echocardiogram Name: ROBIN LUNDBERG MR#: [id number] Study Date: 04/14/2017 Study Time: 02:23 PM Date of : 1965 Age: 52 year(s) Height: 175.3 cm (69 in.) Weight: 83.01 kg (183 lb.) BSA: 1.99 m2 Gender: Male Examination: Echo Indication: Post OHS, Eval for VSD, Bubble exam Image Quality: Contrast: Requested by: Connie Nelson BP: 84 mmHg/44 mmHg Heart Rate: Rhythm: Pacemaker rhythm Indication: Post OHS, Eval for VSD, Bubble exam Procedure Staff Patternmaker All Around: Mathieu Cox BARRY Reading Physician: Mark Thompson Requesting Provider: Conclusions: Left ventricle appears to be normal in size. The ejection fraction is moderately reduced at 30-35%. There is global hypokinesis with left ventricular dyssynchrony likely related to pacing and the postoperative state. There is no indication of a ventricular septal defect. The mitral valve repair appears to be intact with no significant stenosis or insufficiency. There is no significant pericardial effusion. An agitated saline contrast study was performed confirming 2 dimensional and Doppler imaging suggesting that the interventricular septum was intact. Measurements: Chambers Valvular Assessment AV/MV Valvular Assessment TV/PV Normal Normal Normal Name Value Range Name Value Range Name Value Range LVOT Vmax: 1.16 m/s (0.7 m/s-1.1 m/s) MV meanP mmHg ( - ) Continued Measurements: Valvular Assessment AV/MV Name Value MV VTI: 46.30 cm Findings: Right Ventricle: There is a AICD noted in the right venticle.. Mitral Valve: There is no mitral valve regurgitation. A bioprothetic mitral valve is in place. Aortic Valve: Patient: ROBIN LUNDBERG Study Date: 04/14/2017 Page 1 of 2 02:23 PM The aortic valve is a bioprosthesis. Pericardium: No pericardial effusion. Exam Comments: This is a stat echo post OHS, septal myectomy. The EF is estimated at 30-35% with a dysschronous left venticle. A bubble exam was performed and there is no evidence of a VSD.. (No Signature Object) Patient: ROBIN LUNDBERG Study Date: 04/14/2017 Page 2 of 2 02:23 PM [id number]
[2017-04-14] MEDS: ALBUMIN 5% 250 ML IV PRN ×2 (15:30→16:15)
[2017-04-14] MEDS: POTASSIUM Cl (KCl) 50 ML IV PRN ×2 (15:30→20:22)
--- NOTE | 2017-04-14 15:57 | GOP ---
[f rep st] OPERATIVE REPORT DATE OF OPERATION: 04/14/2017 SURGEON: Cristian Wilson DO LAUNDRY TUB MAKER: Connie Nelson, PAC. ANESTHESIOLOGIST: Donald Alexander MD. PREOPERATIVE DIAGNOSIS: 1. 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 2. Residual hypertrophic obstructive cardiomyopathy, status post previous resection. 3. Status post previous septal ablation. 4. Anterior and septal infarction following septal ablation at the [facility]. 5. Ventricular tachycardia as a result of septal ablation performed at the [facility]. 6. Dual-chamber defibrillator pacemaker, status post ablation performed at the [facility]. POSTOPERATIVE DIAGNOSIS: 1. 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 2. Residual hypertrophic obstructive cardiomyopathy, status post previous resection. 3. Status post previous septal ablation. 4. Anterior and septal infarction following septal ablation at the [facility]. 5. Ventricular tachycardia as a result of septal ablation performed at the [facility]. 6. Dual-chamber defibrillator pacemaker, status post ablation performed at the [facility]. PROCEDURE PERFORMED: 1. Reoperation, septal myectomy. 2. Cryoablation of the septum and mitral anulus for ventricular tachycardia. 3. Aortic valve replacement with #23 Magna bioprosthesis. 4. Chordal-sparing mitral valve replacement with a #27 Magna bioprosthesis. 5. Ligation of left atrial appendage. 6. 2 ventricular pacemaker wires tunneled to the previous pacemaker in the left upper shoulder. FINDINGS: Patient was noted to have symptomatic aortic and mitral insufficiency with diminished LV f unction following septal ablation performed at the [facility] for residual hypertrophic cardiomyopath y, status post previous resection. He also had recurrent ventricular tachycardia on beta blockers wi th a defibrillator in place. DESCRIPTION OF PROCEDURE: He was consented for surgery, brought to the operating room, intubated, mo nitoring lines were placed. He was prepped and draped in sterile classical manner. Sternotomy was p erformed. We then spent some time marsupializing the entire heart. He had previous open-heart surge ry where the pericardium was not closed. He was then heparinized and cannulated with bicaval cannula s with tapes and in the ascending aorta, a retrograde catheter was placed. Cardiopulmonary bypass wa s begun. The cross-clamp was applied. Retrograde cardioplegia was administered. Aortotomy was perf ormed and antegrade cardioplegia was subsequently administered directly down the coronaries. We then identified a trileaflet valve which was very thickened and rubbery in consistency, with retra ction of the leaflets. It was excised. There was no calcification. He was noted to have blood eman ating from both the right and left coronary sinuses with retrograde as well. Topical hypothermia in the form of slush as well as hypothermia were also utilized. We then ligated the left atrial appenda ge after dissecting it out with an atrial clip. We then placed 2 left ventricular leads on the later al wall, screw-in bipolar leads. We then exposed the mitral valve through interatrial septum, going onto the dome of the left atrium i n a Giardano incision. The valve was noted to be thickened, foreshortened leaflets with thickening a nd fusion of the chordae. It did not appear to be rheumatic. It was an unusual presentation. I fel t that it was functional MR, would not respond to repair, particularly because of the thickening and stiffness of the anterior leaflet. The anterior leaflet was excised and moved to 3 and 9 o'clock, an d incorporated into the mitral valve replacement with a 27 Magna bioprosthesis with interrupted 2-0 T ycron pledgeted mattress sutures. The interatrial septum was closed, as was the right atrium. We then re-exposed the subvalvular septum, where there was obvious residual muscle bulge causing turb ulence on his preoperative echo. Large scar formation was excised, approximately 2 x 2 x 1 cm deep, right up almost to the aortic valve anulus, since this patient was already pacemaker dependent. We e xcised the scar extending over toward the noncoronary sinus, staying out of the muscle in that area. The outflow tract was markedly enlarged. At that point, LV chamber was irrigated. We then placed a 23 mm Magna valve in a supra-annular position without difficulty. It should be noted prior to doing that, we applied cryoablation for 15 seconds to 30 seconds, starting at the right and then non-commi ssure into the septum, all the way across the septum and down toward the apex, trying to ablate any r esidual ventricular tachycardia from his previous septal ablation. After cryo-ablating the septum, t he valve was seated in place without difficulty. The aortotomy was closed in 2-layer fashion. Cross-clamp was removed with suction on the ascending aortic vent. The patient was de-[facility] in [facility]. When no further air was identified, he was weaned from bypass. Heparin was reversed with protamine. Cannula was removed and oversewn. Two ventricular pacing wires were placed, as were 2 pl eural and 1 mediastinal drain. The pleural reflections were taken down to cover the heart on the ant erior surface, protecting it from the sternum, as well as protect the pacemaker leads. They were bro ught out through the top of the sternal notch and tunneled to the pacemaker pocket, and secured there with a suture. The sternum and the subcu were closed in standard fashion. Patient was returned to ICU in stable condition. /[id number]/MODL
[2017-04-14] MEDS ORDERED: niCARdipine/NACL 200 ML IV SCH (16:00)
[2017-04-14] MEDS ORDERED: ALBUMIN 5% 750 ML IV SCH (16:30)
[2017-04-14] MEDS ORDERED: fentanYL/NACL/100 ML BAG IV ONE (16:49)
[2017-04-14] MEDS ORDERED: ALBUMIN 5% 250 ML IV ONE (17:00)
[2017-04-14] MEDS: fentaNYL/NACL 100 ML IV SCH ×2 (17:17→21:40)
[2017-04-14] MEDS: KETOROLAC 15 MG/1 ML SDV IVP SCH ×2 (18:11→23:17)
[2017-04-14] MEDS: SENNOSIDES/DOCUSATE SODIUM TAB PO SCH (19:24)
[2017-04-14] MEDS: NS 1,000 ML IV SCH ×2 (19:46→19:47)
--- NOTE | 2017-04-14 23:18 | GCON ---
[f rep st] CONSULTATION PULMONARY CRITICAL CARE CONSULTATION DATE OF CONSULTATION: 04/14/2017 REASON FOR CONSULTATION: Acute postoperative respiratory insufficiency, ventilatory management. HISTORY: The patient is a 52-year-old gentleman with severe aortic insufficiency and mitral regurgit ation, who was admitted for elective valvular heart surgery. He underwent an aortic valve replacemen t along with mitral valve replacement this afternoon. Septal myectomy and cryoablation of the septum for ventricular tachycardia were performed. The left atrial appendage was ligated and ventricular p acemaker wires were placed. Total pump run was approximately 2-1/2 hours. He did not have significa nt problems with hypoxemia or pulmonary status. Intraoperatively, he returned to the intensive care unit on a ventilator postoperatively. His initial saturations were in the 70s with ventilator suppor t including 10 of PEEP. He gradually came back up into the low mid 90s on 100% FiO2. He has remaine d on 100% without improvement in his saturations. Chest x-ray shows anticipated postoperative changes, with some retrocardiac atelectasis. There is no pulmonary edema. Cardiac silhouette is large. Arterial blood gas is pending at this time. Postope rative cardiac function appeared to be acceptable and unchanged from preop, with ejection fraction of approximately 35%. There was no evidence of a shunt. He is lightly sedated, on the ventilator, cesar s arouse. MEDICATIONS: He is on fentanyl, low-dose Precedex, dopamine, and insulin drips. He is also on a sma ll amount of nicardipine. PAST MEDICAL HISTORY: Remarkable for cardiac issues, as outlined above. Chronic back pain with chief chemist tim narcotic use and gastroesophageal reflux. SOCIAL HISTORY: He is a never-smoker. Recent alcohol is negative. FAMILY HISTORY: Noncontributory. REVIEW OF SYSTEMS: Unobtainable. PHYSICAL EXAMINATION: GENERAL: Reveals a gentleman who is fit-appearing, on the ventilator, who serene uses weakly, looks to voice. VITAL SIGNS: Current blood pressure is approximately 100/50, saturatio ns 91% on 100% FIO2, temperature is 35.7, current CVP 6, heart rate is 72 and paced. HEENT: Remarka ble for the oral endotracheal tube being in place. There is no jugular venous distention. CHEST: C lear anteriorly. Breath sounds are diminished at the bases. HEART: Paced and regular. A systolic murmur is present. The valves sound fine. There is no obvious gallop. ABDOMEN: Quiet postoperativ deena. CHEST: Chest/mediastinal tube is in place. There is some serosanguineous drainage. EXTREMITI ES: Unremarkable for edema. NEUROLOGIC: Intact. He moves all extremities. Pupils are equal. Blending Operator nial nerves appear intact. LABORATORY DATA: Arterial blood gas shows a pH of 7.39, pCO2 of 37, a PO2 of 58,. Potassium is appr oximately 4 postoperatively. Hemoglobin is 10. ASSESSMENT: 1. Postoperative respiratory insufficiency. Oxygen requirements remain high at this point in time, 100%. On this, oxygen saturations/PO2 is acceptable. The etiology for his hypoxemia is likely multi factorial and includes some possible mild pulmonary edema, pump-related issues, and possibly some mil d pulmonary capillary leak. Mechanical ventilatory support will be maintained. I will keep him on 1 0 of PEEP for now. 2. Status post aortic mitral valve replacement with other surgical issues as outlined in the HPI. H e is stable hemodynamically and postoperatively. Multiple drips are as listed. 3. History of chronic back pain. PLAN AND RECOMMENDATIONS: The patient will be kept on the ventilator tonight. Oxygen will be weaned as possible. Filling pressures will be optimized, but a CVP above 12 is to be avoided if possible s econdary to the risk of increasing pulmonary edema. Chest x-ray and ABG will be followed. Laborator y will be followed. Open heart surgical issues per Cardiovascular Surgery. This pain control and li t sedation will be maintained. Further plans and recommendations will be made based on his progress over the next 12-24 hours. /[id number]/MODL
[2017-04-15] MEDS: DEXMEDETOMIDINE IN 0.9 % NACL 50 ML IV SCH (00:27)
[2017-04-15] MEDS: ceFAZolin 2 GM/SWFI 2 GM/20 ML SYR IVP SCH ×3 (05:31→21:00)
[2017-04-15] MEDS: KETOROLAC 15 MG/1 ML SDV IVP SCH ×3 (05:33→17:38)
[2017-04-15] MEDS: METOCLOPRAMIDE 10 MG/2 ML VIAL IVP PRN ×2 (05:43→20:55)
[2017-04-15] MEDS: ONDANSETRON 4 MG/2 ML VIAL IVP PRN (05:43)
[2017-04-15 06:01] LABS: PLATELET COUNT 123 10^3/uL (150-400)
[2017-04-15] MEDS: HEPARIN 5,000 UNIT/0.5 ML SYR SC SCH ×3 (06:06→20:47)
[2017-04-15] MEDS ORDERED: LIDOCAINE 5% 1 EA PATCH TD ONE ×2 (07:09→07:12)
--- NOTE | 2017-04-15 07:40 | SOAPPROG ---
SOAP Progress Note Assessment/Plan: Assessment: POD#1 Redo septal myectomy, redo septal ablation, AVR #23 Magna bioprosthesis, MVR #27 Magna bioprosthesis, prophylactic AtriClip ligation left atrial appendage, prophylactic placement bipolar LV epicardial lds x 2 tunneled to left subclavicular space Severe AI and MR - s/p tissue valve replacement. Antithrombotic prophylaxis with Coumadin x 3 mo, target INR 2-3. HOCM with residual asymmetric septal hypertrophy - LVOT obstruction noted by preop cath. Redo septal myectomy performed with good result by intraop NAKITA. from CPB on dopamine. Kept intubated overnoc. Adequate diuresis of moderate volume overload. Nonischemic cardiomyopathy - LVEF 35-40%. Possibly pacemaker induced. 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 Hx recurrent VT s/p remote septal ablation compl by anteroseptal CO - Redo ablation with cryothermy performed. Presence dual chamber ICD - Pacer dependent. ICD deactivated preop. Nl generator function verified postop. Reprogrammed to DDD, lower rate 70. ICD to remain off until closer to discharge. Acute on chronic back pain - Postop management with multimodal analgesia. Acute expected blood loss anemia - Stable s/p 1u PRBC. VTE prophylaxis with Sq hep until INR > 1.8 Plan: Routine POD#1 orders re lines, drains, orals and mobility. Vwires removed. Start metoprolol tartrate 12.5 mg BID with conservative hold parameters. Start coumadin. 2.5 mg today. Lasix prn CVP > 15. Inc activity as tolerated. Probable tx to PCU. 04/15/17 07:40 Subjective: Doing ok. More comfortable in chair d/t back spasms. Stands up once hourly for same. Nauseous on [place] and requests "something else". Objective: Vital Signs Temp Pulse Resp BP Pulse Ox 37.7 C 81 20 135/69 H 97 04/15/17 04:00 04/15/17 07:00 04/15/17 07:00 04/15/17 07:00 04/15/17 07:00 Laboratory Results 04/15/17 05:50 04/15/17 05:50 04/14/17 04/15/17 04/16/17 05:59 05:59 05:59 Intake Total 850 3782.1 Output Total 2325 Balance 850 1457.1 Weaned off dopa and insulin earlier this am. Holding MAPs > 75. CVPs 12-15. Vpaced by PPM. No AF. Modest suppl O2 req. CXR-> hypoventilation, bibasilar atelectasis, no PTX, min pulm vasc congestion Dissipating CTOP. Adequate UOP. Labs as expected. Physical Exam - Physical Exam General Appearance: alert, no apparent distress Respiratory: crackles (diffuse), other (blakes y-d to pleurovac, thin serosang drainage, +tidal, no air leak) Cardiac/Chest: regular rate, rhythm, other (Sternotomy CDI. Vwires removed without difficulty.) Abdomen: normal bowel sounds, non-tender, soft Skin: warm/dry Extremities: swelling (1+ gen) ICD10 Worksheet Patient Problems: Problems Problem Status Onset Acute blood loss anemia Acute Mitral valve insufficiency and aortic valve insufficiency Acute S/P ablation of ventricular arrhythmia Acute ~04/14/17 S/P aortic valve replacement with bioprosthetic valve Acute ~04/14/17 S/P mitral valve replacement with bioprosthetic valve Acute ~04/14/17 S/P ventricular septal myectomy Acute ~04/14/17 s/p LV epicardial lead placement x 2 Acute ~04/14/17 NSVT (nonsustained ventricular tachycardia) Chronic Presence of combination internal cardiac defibrillator (ICD) and pacemaker Chronic Hypertrophic cardiomyopathy Chronic
[2017-04-15] MEDS ORDERED: ASPIRIN 81 MG CHEWABLE TAB TUBE PRN (09:00)
[2017-04-15] MEDS ORDERED: PANTOPRAZOLE SODIUM 40 MG TAB PO SCH (09:00)
[2017-04-15] MEDS ORDERED: FUROSEMIDE 40 MG/4 ML VIAL IVP ONE (09:06)
[2017-04-15 09:14] LABS: INR 1.43 (0.83-1.16); PROTIME(PATIENT) 17.6 SEC (12.0-15.0)
[2017-04-15] MEDS: ASPIRIN 81 MG CHEWABLE TAB PO SCH (09:50)
[2017-04-15] MEDS: MUPIROCIN 2% 22 GM OINT NS SCH ×2 (09:51→20:47)
[2017-04-15] MEDS: LIDOCAINE 5% 1 EA PATCH TD SCH (09:51)
[2017-04-15] MEDS: METOPROLOL TARTRATE 25 MG TAB PO SCH ×2 (10:00→20:47)
[2017-04-15] MEDS ORDERED: fentaNYL 75 MCG PATCH TD SCH (11:30)
[2017-04-15] MEDS: oxyCODONE IR 5 MG TAB PO PRN ×2 (13:40→21:05)
--- NOTE | 2017-04-15 14:52 | ASMTCMCOM ---
CM Note CM Note Notes: Pt had elective valvular heart surgery, POD #1. 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 OT rec cardiac rehab PT rec home. Pt transfer to today. CM to follow for d/c plan of care. Date Signed: 04/15/2017 02:51 PM Electronically Signed By:SUZIE Andres
[2017-04-15] MEDS ORDERED: WARFARIN SODIUM 2.5 MG TAB PO ONE (16:00)
[2017-04-15] MEDS: ONDANSETRON DISINTEGRATING 4 MG TAB PO PRN (18:11)
[2017-04-15] MEDS: PANTOPRAZOLE SODIUM 40 MG TAB PO SCH (20:47)
[2017-04-15] MEDS ORDERED: AMITRIPTYLINE HCL 25 MG TAB PO PRN (21:00)
[2017-04-15] MEDS: PATCH REMOVAL 1 EA PATCH TD SCH (21:00)
[2017-04-16] MEDS: KETOROLAC 15 MG/1 ML SDV IVP SCH (00:07)
[2017-04-16] MEDS: HEPARIN 5,000 UNIT/0.5 ML SYR SC SCH (05:22)
[2017-04-16 05:37] LABS: PLATELET COUNT 109 10^3/uL (150-400)
[2017-04-16 05:46] LABS: INR 1.85 (0.83-1.16); PROTIME(PATIENT) 21.4 SEC (12.0-15.0)
[2017-04-16] MEDS: METOPROLOL TARTRATE 25 MG TAB PO SCH ×2 (08:14→19:38)
[2017-04-16] MEDS: ASPIRIN 81 MG CHEWABLE TAB PO SCH (08:14)
[2017-04-16] MEDS: LIDOCAINE 5% 1 EA PATCH TD SCH (08:15)
[2017-04-16] MEDS: MUPIROCIN 2% 22 GM OINT NS SCH (08:16)
[2017-04-16] MEDS: SENNOSIDES/DOCUSATE SODIUM TAB PO SCH ×2 (08:21→19:38)
--- NOTE | 2017-04-16 08:33 | SOAPPROG ---
SOAP Progress Note Assessment/Plan: Assessment: POD#2 Redo septal myectomy, redo septal ablation, AVR #23 Magna bioprosthesis, MVR #27 Magna bioprosthesis, prophylactic AtriClip ligation left atrial appendage, prophylactic placement bipolar LV epicardial lds x 2 tunneled to left subclavicular space Severe AI and MR - s/p tissue valve replacement. Antithrombotic prophylaxis with Coumadin x 3 mo, target INR 2-3. HOCM with residual asymmetric septal hypertrophy - LVOT obstruction noted by preop cath. Redo septal myectomy performed with good result by intraop NAKITA. from CPB on dopamine. Extubated without incident POD#1. Moderate volume overload well tolerated. Nonischemic cardiomyopathy - LVEF 35-40%. Possibly pacemaker induced. LV epicardial leads placed and tunneled near generator for future [employer] as dictated by cards. Hx recurrent VT s/p remote septal ablation compl by anteroseptal CO - Redo ablation with cryothermy performed. AF/PVC prophylaxis with BB as tolerated. Presence dual chamber ICD - Pacer dependent. ICD deactivated preop. Nl generator function verified postop. Reprogrammed to DDD, lower rate 70. Transcutaneous Vwire removed. ICD to remain off until closer to discharge. Postoperative MICHAEL - Likely nephrotoxic ATN (NSAID) as MAPs robust. Oral hydration encouraged. Follow. Acute on chronic back pain - Postop management with multimodal analgesia. Use of Toradol compl by MICHAEL and discontinued. Acute expected blood loss anemia - Stable s/p 1u PRBC. VTE prophylaxis with Sq hep until INR > 1.8 Plan: Remove ant med drain. Stop toradol. Inc free water intake. Cont metoprolol tartrate 12.5 mg BID with conservative hold parameters. Decr coumadin to 1 mg today. Stop SQ hep. Cont inc activity as tolerated. Dispo - Anticipate home without services 2-3 days. 04/16/17 08:32 Subjective: Doing ok. Satisfactory analgesia. Tolerating light activity with relative ease. Voiding regularly directly into toilet. Objective: Vital Signs Temp Pulse Resp BP Pulse Ox 36.4 C 90 13 120/87 H 98 04/16/17 07:33 04/16/17 07:33 04/16/17 07:33 04/16/17 07:33 04/16/17 07:33 Laboratory Results 04/16/17 05:20 04/16/17 05:20 04/15/17 04/16/17 04/17/17 05:59 05:59 05:59 Intake Total 3782.1 1455 Output Total 2325 1005 Balance 1457.1 450 PT 21.4 SEC (12.0-15.0) H 04/16/17 05:20 INR 1.85 (0.83-1.16) H 04/16/17 05:20 Holding SR. MAPs > 90. Excellent sats on 2 lpm O2. CXR -> hypovent, bibasilar atelectasis. Balanced I/Os. UOP likely under-recorded as sometimes voiding into toilet. Wt is down 1/2 lb. Mediastinal drain output at removal criteria. BUN/Cr unexpectedly elev. 6th dose of toradol at [place]. - Pending Discharge Pending Discharge Within 48 Hours: Yes Pending Discharge Date: 04/18/17 Pending Discharge Time: 11:00 Physical Exam - Physical Exam General Appearance: alert, no apparent distress Respiratory: lungs clear (grossly), other (blakes x 3 to bulb suction, thin serosang drainage) Cardiac/Chest: regular rate, rhythm, other (Sternotomy CDI. Vwires removed without difficulty.) Abdomen: non-tender, soft Skin: warm/dry Extremities: swelling (1+ gen) ICD10 Worksheet Patient Problems: Problems Problem Status Onset Acute blood loss anemia Acute Mitral valve insufficiency and aortic valve insufficiency Acute S/P ablation of ventricular arrhythmia Acute ~04/14/17 S/P aortic valve replacement with bioprosthetic valve Acute ~04/14/17 S/P mitral valve replacement with bioprosthetic valve Acute ~04/14/17 S/P ventricular septal myectomy Acute ~04/14/17 s/p LV epicardial lead placement x 2 Acute ~04/14/17 NSVT (nonsustained ventricular tachycardia) Chronic Presence of combination internal cardiac defibrillator (ICD) and pacemaker Chronic Hypertrophic cardiomyopathy Chronic
[2017-04-16] MEDS: FUROSEMIDE 40 MG/4 ML VIAL IVP SCH (14:23)
[2017-04-16] MEDS ORDERED: WARFARIN SODIUM 1 MG TAB PO ONE (16:00)
[2017-04-16] MEDS: ONDANSETRON 4 MG/2 ML VIAL IVP PRN (17:28)
[2017-04-16] MEDS: oxyCODONE IR 5 MG TAB PO PRN (18:06)
[2017-04-16] MEDS: ONDANSETRON DISINTEGRATING 4 MG TAB PO PRN (19:37)
[2017-04-16] MEDS: PANTOPRAZOLE SODIUM 40 MG TAB PO SCH (19:38)
[2017-04-16] MEDS: METOCLOPRAMIDE 10 MG/2 ML VIAL IVP PRN (19:42)
[2017-04-16] MEDS: PATCH REMOVAL 1 EA PATCH TD SCH (20:05)
[2017-04-17 04:32] LABS: INR 1.79 (0.83-1.16); PROTIME(PATIENT) 20.9 SEC (12.0-15.0)
[2017-04-17] MEDS ORDERED: METOLAZONE 5 MG TAB PO ONE (07:13)
--- NOTE | 2017-04-17 07:43 | SOAPPROG ---
KALANI Progress Note Assessment/Plan: POD#3: Redo septal myectomy, redo septal ablation, AVR #23 Magna bioprosthesis, MVR #27 Magna bioprosthesis, prophylactic AtriClip ligation left atrial appendage, prophylactic placement bipolar LV epicardial lds x 2 tunneled to left subclavicular space Severe AI and MR - s/p tissue valve replacement. Antithrombotic prophylaxis with Coumadin x 3 mo, target INR 2-3. VTE prophylaxis with SCDs/Coumadin. Pleural drains x 2 with output over 100 cc over 24 hours. Will consider removing later today/tomorrow. HOCM with h/o septal myectomy and residual asymmetric septal hypertrophy - LVOT obstruction noted by preop cath. Redo septal myectomy performed with good result by intraop NAKITA. Continue beta-blockers. Nonischemic cardiomyopathy - LVEF 35-40%. Continue beta-blockers/diuretics. LV epicardial leads in place for possible need of of bi-ventricular pacing as dictated by cards. Hx recurrent VT with h/o remote septal ablation s/p redo ablation - Continue beta-blockers as tolerated. Presence dual chamber ICD - Pacer dependent. ICD deactivated preop. Nl generator function verified postop. Reprogrammed to DDD, lower rate 70. Transcutaneous Vwire removed. ICD to be interrogated this morning with defibrillation function turned back on. Postoperative MICHAEL - Resolved. Avoid nephrotoxins. Acute on chronic back pain - Postop management with multimodal analgesia. Acute expected blood loss anemia - Stable s/p 1u PRBC. Subjective: No complaints this morning. Objective: Vital Signs Temp Pulse Resp BP Pulse Ox 36.7 C 102 H 17 122/89 H 94 04/17/17 04:00 04/17/17 05:59 04/17/17 04:00 04/17/17 04:00 04/17/17 05:59 Laboratory Results 04/16/17 05:20 04/17/17 04:00 04/16/17 04/17/17 04/18/17 05:59 05:59 05:59 Intake Total 1455 1715 Output Total 1005 2610 Balance 450 -895 PT 20.9 SEC (12.0-15.0) H 04/17/17 04:00 INR 1.79 (0.83-1.16) H 04/17/17 04:00 Physical Exam - Physical Exam General Appearance: WD/WN, alert, no apparent distress EENT: No scleral icterus (R), No scleral icterus (L) Neck: normal inspection Respiratory: No respiratory distress Cardiac/Chest: irregularly irregular, other (v-paced) Skin: normal color, warm/dry Extremities: pedal edema Neuro/Psych: no motor/sensory deficits, alert, normal mood/affect, oriented x 3 ICD10 Worksheet Patient Problems: Problems Problem Status Onset Acute blood loss anemia Acute Mitral valve insufficiency and aortic valve insufficiency Acute S/P ablation of ventricular arrhythmia Acute ~04/14/17 S/P aortic valve replacement with bioprosthetic valve Acute ~04/14/17 S/P mitral valve replacement with bioprosthetic valve Acute ~04/14/17 S/P ventricular septal myectomy Acute ~04/14/17 s/p LV epicardial lead placement x 2 Acute ~04/14/17 NSVT (nonsustained ventricular tachycardia) Chronic Presence of combination internal cardiac defibrillator (ICD) and pacemaker Chronic Hypertrophic cardiomyopathy Chronic
[2017-04-17] MEDS: ASPIRIN 81 MG CHEWABLE TAB PO SCH (08:34)
[2017-04-17] MEDS: SENNOSIDES/DOCUSATE SODIUM TAB PO SCH ×2 (08:34→21:25)
[2017-04-17] MEDS: OMEGA-3 FATTY ACIDS 1,000 MG CAP PO SCH (08:34)
[2017-04-17] MEDS: LIDOCAINE 5% 1 EA PATCH TD SCH ×2 (08:37→16:26)
[2017-04-17] MEDS: FUROSEMIDE 40 MG/4 ML VIAL IVP SCH ×2 (08:44→15:25)
[2017-04-17] MEDS: METOPROLOL TARTRATE 25 MG TAB PO SCH ×2 (08:56→20:20)
--- NOTE | 2017-04-17 09:45 | ASMTCMCOM ---
CM Note CM Note Notes: 04/17/2017 Case Management Note Reviewed chart. PT is recommending home with outpatient rehab. Case Management available if further d/c needs are identified. Date Signed: 04/17/2017 09:45 AM Electronically Signed By:Kenyatta Simpson RN
[2017-04-17] MEDS ORDERED: WARFARIN SODIUM 2 MG TAB PO ONE (16:00)
--- NOTE | 2017-04-17 16:58 | ECHO ---
[email or web address] [address] Main: [phone] Fax: Transthoracic Echocardiogram Name: ROBIN LUNDBERG MR#: [id number] Study Date: 04/17/2017 Study Time: 07:56 AM Date of : 1965 Age: 52 year(s) Height: 175.3 cm (69 in.) Weight: 89.36 kg (197 lb.) BSA: 2.05 m2 Gender: Male Examination: Echo Indication: rountine baseline postop AVR#23, MVR#27Magna and septal myectomy Image Quality: Adequate Contrast: Requested by: Connie Nelson BP: 102 mmHg/80 mmHg Heart Rate: Rhythm: Pacemaker rhythm Indication: rountine baseline postop AVR#23, MVR#27Magna and septal myectomy Procedure Staff Electrical Prospecting Observer: Jael Rees [facility] Reading Physician: Cristian Gusman Requesting Provider: Conclusions: Moderately dilated left ventricle. Mild concentric LV hypertrophy. Moderately to severely reduced systolic function. EF is 24 %. Moderate global hypokinesis with dyskinesis of the interventricular septum. [place] is akinetic. S/P septal myectomy. No obvious VSD noted. Mildly reduced RV function. There is a pacemaker lead noted in the right ventricle. The left atrium is moderately dilated. The right atrium is moderately dilated. A bioprothetic mitral valve is in place. The leaflets are thin and mobile. Mean gradient across the MVR 7mmHg. Trivial MV prosthesis regurgitation. The aortic valve is a bioprosthesis. No prosthesis regurgitation. Mild to moderate tricuspid valve regurgitation. Right ventricular systolic pressure measures 41mmHg. Trivial pericardial effusion. No significant change compared to 04/14/2017. Measurements: Chambers Valvular Assessment AV/MV Valvular Assessment TV/PV Normal Normal Normal Name Value Range Name Value Range Name Value Range Ao Monalisa (MM): 3.0 cm (2.2 cm-3.7 AV meanP mmHg ( - ) TR Vmax: 2.78 mm/s ( - ) cm) LVOT Vmax: 1.01 m/s (0.7 m/s-1.1 TR PGmax: 31 mmHg ( - ) IVSd (2D): 1.3 cm (0.6 cm-1.1 m/s) syst. PAP: 41 mmHg ( - ) cm) MV meanP mmHg ( - ) PV Vmax: 1.33 m/s (0.6 m/s-0.9 m/s) Patient: ROBIN LUNDBERG Study Date: 04/17/2017 Page 1 of 2 07:56 AM LVDd (2D): 6.0 cm (4.2 cm-5.9 PV PGmax: 7 mmHg ( - ) cm) LVDs (2D): 5.1 cm (2.1 cm-4 cm) LVPWd (2D): 1.2 cm (0.6 cm-1 cm) LVEF (BP): 24 % (>=55 %) RVDd(2D): 3.9 cm (1.9 cm-3.8 cmmm) Continued Measurements: Chambers Valvular Assessment AV/MV Valvular Assessment TV/PV Name Value Name Value Name Value LADs Lon.5 cm MV VTI: 48.50 cm CVP (est.): 10 mmHg LA Area: 28.5 cm2 LA Volume: 96 ml LA Volume Index: 46.8 ml/m2 TAPSE: 1.2 cm RA Area: 21.0 cm2 Findings: Left Ventricle: Moderately dilated left ventricle. Mild concentric LV hypertrophy. Moderately to severely reduced systolic function. EF is 24 %. Moderate global hypokinesis with dyskinesis of the interventricular septum. [place] is akinetic.Unable to assess diastolic dysfunction. S/P septal myectomy. No obvious VSD noted. Right Ventricle: Normal size right ventricle. Mildly reduced RV function. There is a pacemaker lead noted in the right ventricle. Left Atrium: The left atrium is moderately dilated. Right Atrium: The right atrium is moderately dilated. There is a pacemaker lead noted in the right atrium. Mitral Valve: A bioprothetic mitral valve is in place. The leaflets are thin and mobile. Mean gradient across the MVR 7mmHg. Trivial MV prosthesis regurgitation. Aortic Valve: The aortic valve is a bioprosthesis. Normal functioning aortic valve prosthesis. No prosthesis regurgitation. Tricuspid Valve: The tricuspid valve appears normal. Mild to moderate tricuspid valve regurgitation. The pulmonary artery pressure is mildly increased. Right ventricular systolic pressure measures 41mmHg. Pulmonic Valve: The pulmonic valve is normal in appearance and function. There is no pulmonic regurgitation seen. Aorta: Ascending aorta is not well visualized. Normal size aortic root measuring 3.0 cm. IVC: The IVC is dilated. Pericardium: Trivial pericardial effusion. (No Signature Object) Patient: ROBIN LUNDBERG Study Date: 04/17/2017 Page 2 of 2 07:56 AM [id number]
[2017-04-17] MEDS: oxyCODONE IR 5 MG TAB PO PRN (18:05)
[2017-04-17] MEDS: PATCH REMOVAL 1 EA PATCH TD SCH (20:20)
[2017-04-17] MEDS: PANTOPRAZOLE SODIUM 40 MG TAB PO SCH (20:20)
[2017-04-18 04:54] LABS: INR 2.08 (0.83-1.16); PROTIME(PATIENT) 23.4 SEC (12.0-15.0)
--- NOTE | 2017-04-18 07:27 | SOAPPROG ---
SOAP Progress Note Assessment/Plan: Assessment: POD#4 Redo septal myectomy, redo septal ablation, AVR #23 Magna bioprosthesis, MVR #27 Magna bioprosthesis, prophylactic AtriClip ligation left atrial appendage, prophylactic placement bipolar LV epicardial lds x 2 tunneled to left subclavicular space Severe AI and MR - s/p tissue valve replacement. Antithrombotic prophylaxis with Coumadin x 3 mo, target INR 2-3. HOCM with residual asymmetric septal hypertrophy - LVOT obstruction noted by preop cath. Redo septal myectomy performed with good result by intraop NAKITA. from CPB on dopamine. Extubated without incident POD#1. Moderate volume overload well tolerated. Nonischemic cardiomyopathy - LVEF 35-40%. Possibly pacemaker induced. LV epicardial leads placed and tunneled near generator for future [employer] as dictated by cards. Hx recurrent VT s/p remote septal ablation compl by anteroseptal [place] - Redo ablation with cryothermy performed. AF/PVC prophylaxis with BB as tolerated. Presence dual chamber ICD - Pacer dependent. ICD deactivated preop. Nl generator function verified postop. Reprogrammed to DDD, lower rate 70. Transcutaneous Vwire removed. ICD to remain off until closer to discharge. Postoperative MICHAEL - Resolved with discontinuation NSAID. Acute on chronic back pain - Postop management with multimodal analgesia. Acute expected blood loss anemia - Stable s/p 1u PRBC. VTE prophylaxis with coumadin. Plan: Pleural drains removed. 1500 fluid restriction. Cont IV Lasix 40 mg BID. Replete K. Cont metoprolol tartrate 25 mg BID. Cont coumadin 2 mg daily. Cont inc activity as tolerated. Dispo - Anticipate home without services tomorrow. 04/18/17 07:27 Subjective: Miserable. Doesn't like bed, room temp, food. Hasn't slept well in a week and wants to go home. Ambulating without difficulty. Legs less swollen. +BMs. Objective: Vital Signs Temp Pulse Resp BP Pulse Ox 36.9 C 108 H 17 96/71 L 91 L 04/18/17 05:00 04/18/17 06:16 04/18/17 05:00 04/18/17 05:00 04/18/17 06:16 Laboratory Results 04/18/17 04:30 04/18/17 04:30 04/17/17 04/18/17 04/19/17 05:59 05:59 05:59 Intake Total 1715 896 100 Output Total 2610 3407 300 Balance -895 -2511 -200 PT 23.4 SEC (12.0-15.0) H 04/18/17 04:30 INR 2.08 (0.83-1.16) H 04/18/17 04:30 Vpaced. SBP > 95 on inc dose BB. Almost off O2. Vigorous diuresis with secondary electrolyte imbalance. CTOP at removal criteria. CXR-> hypovent with bibasilar atelectasis. LFTs slightly elev, c/w hepatic congestion. INR rise appropriate. - Pending Discharge Pending Discharge Within 48 Hours: Yes Pending Discharge Date: 04/20/17 Pending Discharge Time: 11:00 Physical Exam - Physical Exam General Appearance: alert, no apparent distress Respiratory: lungs clear (grossly), other (Blakes x 2 to bulb suction, thin serosang drainage. Both tubes removed without incident.) Cardiac/Chest: regular rate, rhythm, other (Sternotomy CDI) Abdomen: normal bowel sounds, non-tender, soft Skin: warm/dry Extremities: swelling (1+ gen) ICD10 Worksheet Patient Problems: Problems Problem Status Onset Acute blood loss anemia Acute Mitral valve insufficiency and aortic valve insufficiency Acute S/P ablation of ventricular arrhythmia Acute ~04/14/17 S/P aortic valve replacement with bioprosthetic valve Acute ~04/14/17 S/P mitral valve replacement with bioprosthetic valve Acute ~04/14/17 S/P ventricular septal myectomy Acute ~04/14/17 s/p LV epicardial lead placement x 2 Acute ~04/14/17 NSVT (nonsustained ventricular tachycardia) Chronic Presence of combination internal cardiac defibrillator (ICD) and pacemaker Chronic Hypertrophic cardiomyopathy Chronic
[2017-04-18] MEDS: OMEGA-3 FATTY ACIDS 1,000 MG CAP PO SCH (08:09)
[2017-04-18] MEDS: METOPROLOL TARTRATE 25 MG TAB PO SCH ×2 (08:09→19:44)
[2017-04-18] MEDS: POTASSIUM CL 20 MEQ TAB PO SCH ×2 (08:09→19:43)
[2017-04-18] MEDS: FUROSEMIDE 40 MG/4 ML VIAL IVP SCH (08:10)
[2017-04-18] MEDS: SENNOSIDES/DOCUSATE SODIUM TAB PO SCH (08:10)
[2017-04-18] MEDS: ASPIRIN 81 MG CHEWABLE TAB PO SCH (08:10)
[2017-04-18] MEDS ORDERED: SENNOSIDES/DOCUSATE SODIUM TAB PO PRN (09:00)
[2017-04-18] MEDS: LIDOCAINE 5% 1 EA PATCH TD SCH ×2 (12:04→13:14)
[2017-04-18] MEDS: CYCLOBENZAPRINE 10 MG TAB PO PRN ×2 (13:14→19:43)
[2017-04-18] MEDS ORDERED: FUROSEMIDE 40 MG TAB PO SCH (15:00)
[2017-04-18] MEDS ORDERED: WARFARIN SODIUM 2 MG TAB PO ONE (16:00)
[2017-04-18] MEDS: PANTOPRAZOLE SODIUM 40 MG TAB PO SCH (19:42)
[2017-04-18] MEDS: PATCH REMOVAL 1 EA PATCH TD SCH (19:50)
[2017-04-18] MEDS ORDERED: POTASSIUM CL 20 MEQ TAB PO ONE (21:45)
[2017-04-18] MEDS ORDERED: MAGNESIUM SULF 1 GM/DEXTROSE 100 ML IV ONE (22:00)
[2017-04-19 05:41] LABS: INR 1.66 (0.83-1.16); PROTIME(PATIENT) 19.7 SEC (12.0-15.0)
--- NOTE | 2017-04-19 07:29 | SOAPPROG ---
SOAP Progress Note Assessment/Plan: Assessment: POD#5 Redo septal myectomy, redo septal ablation, AVR #23 Magna bioprosthesis, MVR #27 Magna bioprosthesis, prophylactic AtriClip ligation left atrial appendage, prophylactic placement bipolar LV epicardial lds x 2 tunneled to left subclavicular space Severe AI and MR - s/p tissue valve replacement. Antithrombotic prophylaxis with Coumadin x 3 mo, target INR 2-3. HOCM with residual asymmetric septal hypertrophy - LVOT obstruction noted by preop cath. Redo septal myectomy performed with good result by intraop NAKITA. from CPB on dopamine. Extubated without incident POD#1. Moderate volume overload well tolerated. Nonischemic cardiomyopathy - LVEF 35-40%. Possibly pacemaker induced. LV epicardial leads placed and tunneled near generator for future [employer]ICIT[employer] as dictated by cards. Hx recurrent VT s/p remote septal ablation compl by anteroseptal [place] - Redo ablation with cryothermy performed. AF/PVC prophylaxis with BB as tolerated. Presence dual chamber ICD - Pacer dependent. ICD deactivated preop. Nl generator function verified postop. Reprogrammed to DDD, lower rate 70. ICD reactivated. Postoperative MICHAEL - Resolved with discontinuation NSAID. Acute on chronic back pain - Postop management with multimodal analgesia. Acute expected blood loss anemia - Stable s/p 1u PRBC. VTE prophylaxis with coumadin. Plan: Ok for discharge later today. Relax diuresis. Inc coumadin. Instructions re diet, meds, activity, f/u and wound care to be reviewed. 04/19/17 07:27 Subjective: Slept better. No acute concerns. Ready for home this afternoon. Objective: Vital Signs Temp Pulse Resp BP Pulse Ox 36.8 C 97 17 111/82 H 97 04/19/17 04:00 04/19/17 04:00 04/19/17 04:00 04/19/17 04:00 04/19/17 04:00 Laboratory Results 04/19/17 05:02 04/19/17 05:02 04/18/17 04/19/17 04/20/17 05:59 05:59 05:59 Intake Total 896 1050 Output Total 3407 3400 Balance -2511 -2350 PT 19.7 SEC (12.0-15.0) H 04/19/17 05:02 INR 1.66 (0.83-1.16) H 04/19/17 05:02 Paced. SBPs 100s -110s. Almost off O2. Cont vigorous diuresis. Now within 2 kg admit wt. Hepatic congestion clearing by INR. Physical Exam - Physical Exam General Appearance: alert, no apparent distress Respiratory: lungs clear (grossly) Cardiac/Chest: regular rate, rhythm, other (Sternum grossly stable. Sternotomy and CT sites ok.) Abdomen: non-tender, soft Extremities: swelling (trace - 1+) ICD10 Worksheet Patient Problems: Problems Problem Status Onset Acute blood loss anemia Acute Mitral valve insufficiency and aortic valve insufficiency Acute S/P ablation of ventricular arrhythmia Acute ~04/14/17 S/P aortic valve replacement with bioprosthetic valve Acute ~04/14/17 S/P mitral valve replacement with bioprosthetic valve Acute ~04/14/17 S/P ventricular septal myectomy Acute ~04/14/17 s/p LV epicardial lead placement x 2 Acute ~04/14/17 NSVT (nonsustained ventricular tachycardia) Chronic Presence of combination internal cardiac defibrillator (ICD) and pacemaker Chronic Hypertrophic cardiomyopathy Chronic
[2017-04-19 07:45] VITALS: TEMP 98.4
[2017-04-19] MEDS ORDERED: POTASSIUM CL 20 MEQ TAB PO ONE (08:00)
[2017-04-19] MEDS: METOPROLOL TARTRATE 25 MG TAB PO SCH (08:57)
[2017-04-19] MEDS: OMEGA-3 FATTY ACIDS 1,000 MG CAP PO SCH (08:58)
[2017-04-19] MEDS: ASPIRIN 81 MG CHEWABLE TAB PO SCH (08:58)
[2017-04-19] MEDS ORDERED: FUROSEMIDE 40 MG TAB PO SCH (09:00)
[2017-04-19] MEDS ORDERED: POTASSIUM CL 10 MEQ TAB ONE (09:03)
[2017-04-19 11:05] VITALS: BP 108/68; PULSE 96; RESP 18; O2SAT 94
--- NOTE | 2017-04-19 13:37 | PDDCSUM ---
Discharge Summary Discharge Summary: DATE OF ADMISSION: 04/13/17 DATE OF DISCHARGE: 04/19/17 DISPOSITION: Home, self-care PRINCIPAL ADMISSION DIAGNOSES: 1. Severe mitral valve regurgitation 2. Severe aortic valve regurgitation 3. Nonsustained ventricular tachycardia 4. Nonischemic cardiomyopathy PRINCIPAL DISCHARGE DIAGNOSES: 1. Nonobstructive right carotid artery disease 2. Coronary artery disease excluded 3. Residual asymmetric septal hypertrophy with left ventricular outflow tract obstruction 4. 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 Status post redo transaortic septal myectomy 6. Status post redo transaortic septal ablation with cryothermy 7. Status post aortic valve replacement with a bioprosthesis 8. Status post mitral valve replacement with a bioprosthesis 9. Status post prophylactic clip ligation of the left atrial appendage 10. Status post prophylactic placement of bipolar left ventricular epicardial leads x 2, tunneled to left subclavicular space 11. Postoperative reprogramming of dual chamber ICD to lower rate of 70 beats per minute 12. Postoperative acute kidney injury attributable to Toradol 13. Acute expected blood loss anemia HISTORY OF PRESENT ILLNESS: 51 yo male with a complex cardiac hx, evaluated for class II systolic CHF with multiple ICD shocks and found to have severe AI, severe MR, NSVT, and a drop in LVEF from 55% to 45%. Scheduled for valvular replacement and admitted in advance of surgery to complete risk stratification. 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 ALLERGIES/SENSITIVITIES: NKDA CONSULTANTS: Pulmonology/critical care Sergo) PROCEDURES/IMAGIN/8 (Samuel): Left heart catheterization with selective coronary angiography and left ventriculogram. Access left radial artery. Findings: Right dominant coronary circulation. No angiographic evidence CAD. Segmental wall motion abnormalities involving the anterior wall and apex. 3+ MR. LVOT with a filling defect suggestive of HOCM. 04/13 Carotid Ultrasound: Mild atherosclerotic plaque in the right carotid bulb and proximal right internal carotid artery. No significant plaque in the left carotid. 04/14 (Steve): Redo median sternotomy. Take down adhesions. Redo transaortic septal myectomy. Redo transaortic septal ablation with cryothermy. Aortic valve replacement with a 23 mm Day Magna bovine pericardial bioprosthesis. Chordal sparing mitral valve replacement with a 27 mm Day Magna bovine pericardial bioprosthesis. Prophylactic AtriClip ligation of the left atrial appendage. Prophylactic placement bipolar LV epicardial lds x 2 tunneled to left subclavicular space. 04/14 (Donna): Limited transthoracic echocardiogram: Nl LV cavity size. Global hypokinesis with LV dyssynchrony likely related to pacing. LVEF 30-35%. No VSD. No pericardial effusion. 04/17 Gusman): Transthoracic echocardiogram: All chambers moderately dilated. Dyskinesis of interventricular septum. LVEF 25%. Nl bioprosthetic valve function. Mild to moderate TR. RVSP 41 mmHg. ABBREVIATED HOSPITAL COURSE BY ACTIVE PROBLEM LIST: 1. Severe AI and MR - s/p tissue valve replacement. Antithrombotic prophylaxis with Coumadin x 3 mo, target INR 2-3. 2. HOCM with residual asymmetric septal hypertrophy - LVOT obstruction noted by preop cath. Redo septal myectomy performed with good result by intraop NAKITA. from CPB on dopamine. Extubated without incident POD#1. Significant volume overload well tolerated. Actively diuresed once renal fx normalized. 3. Nonischemic cardiomyopathy - LVEF 35-40%. Possibly pacemaker induced. LV epicardial leads placed and tunneled near generator for future FLOSSER as dictated by cards. Slight decline in postop LVEF attributed to volume overload. 4. Hx recurrent VT s/p alcohol septal ablation compl by anteroseptal ME - Redo ablation with cryothermy performed. Postop rhythm predominantly Vpaced with rare PVCs. AF/PVC prophylaxis with BB as tolerated. 5. Presence dual chamber ICD - Pacer dependent. Nl generator function verified postop. Reprogrammed to DDD, lower rate 70. ICD reactivated prior to discharge. 6. Postoperative MICHAEL - On POD#2. Nonoliguric. Robust MAPs. Prompt resolution after discontinuation NSAID. 7. Acute on chronic (back) pain - Controlled with multimodal analgesia. 8. Acute expected blood loss anemia - Stable. No transfusions required. H/H > 9/ 25 maintained. DISCHARGE CLINICAL INFORMATION: Sternum grossly stable. Sternotomy CDI, sutured, +Dermabond. HR 90s. SBP 100s-110s. SpO2 94% RA. Wt 1.7 kg above admission at 83.4 kilos. Hgb 9.6, HCT 26.3, Plt 166, Na 130, K 3.8, Cr 0.7 Coumadin flow sheet: Date INR mg 04/15 1.43 2.5 04/16 1.85 1.0 04/17 1.79 2.0 04/18 2.08 2.0 04/19 1.66 2.5 DISCHARGE MEDICATIONS: As on admission with the following adjustments: Decrease metoprolol tartrate to 25 mg BID. Decrease aspirin to 81 mg daily. Hold for INR > 3. NEW prescriptions: 1. Lasix 40 mg daily. 2. Klor-Con 20 meq daily with lasix. 3. Flexeril 10 mg TID prn back spasms. 4. Coumadin 2.5 mg daily or as directed by INR/anticoagulation clinic. FOLLOW UP APPOINTMENTS: 1. CV surgery: with Dr Wilson at [facility] on 04/27 at 11:15 am. 2. [facility] anticoagulation clinic at [facility] for INR on 04/21 at 2:30 pm. 3. Cardiology: with Dr Baker at [facility] within 4 weeks. Appointment to be established during surgical visit. Consider reduction lower pacer rate to 50. 4. Cardiology: with Dr Barajas at [facility] within 6-8 weeks, or as directed by Dr Baker. OTHER FOLLOW UP TESTING: CXR prior to surgical appointment.
[2017-04-19] MEDS ORDERED: WARFARIN SODIUM 2.5 MG TAB PO SCH (16:00)
[2017-04-20] MEDS ORDERED: POTASSIUM CL 20 MEQ TAB PO SCH (09:00)
== END 2017-04-19 15:43 | disposition home or self-care (01) | DRG 217 ==
LOC: F2W 09:34 → F2N 04-14 08:00 → F2W 04-15 14:35
PROVIDERS: ADMIT Thoracic Surgery (Cardiothoracic Vascular Surgery); ATTEND Thoracic Surgery (Cardiothoracic Vascular Surgery)
DX: I35.1 Nonrheumatic aortic (valve) insufficiency (principal); I34.1 Nonrheumatic mitral (valve) prolapse; I47.2 Ventricular tachycardia; I42.1 Obstructive hypertrophic cardiomyopathy; I50.22 Chronic systolic (congestive) heart failure; Z95.810 Presence of automatic (implantable) cardiac defibrillator; I97.190 Other postprocedural cardiac functional disturbances following cardiac surgery; I42.8 Other cardiomyopathies; D62 Acute posthemorrhagic anemia; N14.0 Analgesic nephropathy; T39.315A Adverse effect of propionic acid derivatives, initial encounter; M54.5 Low back pain; Z79.891 Long term (current) use of opiate analgesic; K21.9 Gastro-esophageal reflux disease without esophagitis
CPT/HCPCS: 82947-QW; 97116-GP; 97161-GP; 97165-GO; 97530-GO; 97535-GO; C1721; J0153; J0171; J0282; J0690; J1250; J1265; J1644; J1815; J1885; J1940; J2001; J2150; J2250; J2260; J2270; J2370; J2405; J2704; J2720; J2765; J2930; J3010; J3475; J3480; J7060; P9041; Q9967

== ENCOUNTER → 2017-04-27 | Outpatient (CLI) | payer MEDICAID | LOC: FIMAGING 10:06 | PROVIDERS: ATTEND Thoracic Surgery (Cardiothoracic Vascular Surgery) | DX: J98.11 Atelectasis (principal); J90 Pleural effusion, not elsewhere classified; I51.7 Cardiomegaly; Z95.2 Presence of prosthetic heart valve ==

== ENCOUNTER 2017-08-31 07:53 | Day surgery (SDC) | payer MEDICAID ==
[2017-08-31] MEDS ORDERED: diphenhydrAMINE 25 MG CAP PO ONE (07:55)
[2017-08-31] MEDS ORDERED: ceFAZolin 2 GM/DEXTROSE 100 ML IV ONE (07:55)
[2017-08-31] MEDS ORDERED: DIAZEPAM 5 MG TAB PO ONE (07:55)
[2017-08-31] MEDS ORDERED: NS 1,000 ML IV ONE (07:55)
[2017-08-31] MEDS ORDERED: BACITRACIN IRRIGATION/NS 50,000 UNITS/1,000 ML BTL IRR ONE (07:55)
--- NOTE | 2017-08-31 08:11 | CPEKG ---
Heart Rate: 60 RR Interval: 1000 P-R Interval: 184 QRSD Interval: 212 QT Interval: 504 QTC Interval: 504 P [place]: 259 QRS [place]: -63 T Wave [place]: 116 EKG Severity - ABNORMAL ECG - EKG Impression: A-V DUAL-PACED RHYTHM WITH SOME INHIBITION Electronically Signed By: Parrish Alaniz 31-Aug-2017 08:34:45
[2017-08-31 08:26] LABS: PLATELET COUNT 219 10^3/uL (150-400)
[2017-08-31 08:34] LABS: INR 1.25 (0.83-1.16); PROTIME(PATIENT) 15.9 SEC (12.0-15.0)
[2017-08-31] MEDS ORDERED: fentaNYL 100 MCG/2 ML INJ ONE (08:49)
[2017-08-31] MEDS ORDERED: LIDOCAINE 1% 300 MG/30 ML SDV ONE (08:49)
[2017-08-31] MEDS ORDERED: MIDAZOLAM 2 MG/2 ML VIAL ONE (08:50)
[2017-08-31] MEDS ORDERED: LIDO/EPI 1% **for epidural** 30 ML SDV ONE (08:50)
[2017-08-31] MEDS ORDERED: BUPIVACAINE 0.5% 30 ML SDV ONE (08:50)
== END 2017-08-31 09:44 | disposition home or self-care (01) ==
LOC: FCATH 07:53
PROVIDERS: ATTEND Internal Medicine Cardiovascular Disease
DX: Z53.8 Procedure and treatment not carried out for other reasons (principal)
CPT/HCPCS: J0690; J2250; J3010

== ENCOUNTER 2017-09-07 07:48 | Observation (INO) | payer MEDICAID ==
[2017-09-07] MEDS ORDERED: DIAZEPAM 5 MG TAB PO ONE (07:50)
[2017-09-07] MEDS ORDERED: ceFAZolin 2 GM/DEXTROSE 100 ML IV ONE (07:50)
[2017-09-07] MEDS ORDERED: NS 1,000 ML IV ONE (07:50)
[2017-09-07] MEDS ORDERED: diphenhydrAMINE 25 MG CAP PO ONE (07:50)
[2017-09-07] MEDS ORDERED: BACITRACIN IRRIGATION/NS 50,000 UNITS/1,000 ML BTL IRR ONE (07:50)
--- NOTE | 2017-09-07 08:02 | CPEKG ---
Heart Rate: 67 RR Interval: 896 QRSD Interval: 128 QT Interval: 412 QTC Interval: 435 P [place]: 0 QRS [place]: 262 T Wave [place]: 65 EKG Severity - ABNORMAL ECG - EKG Impression: A-V DUAL-PACED COMPLEXES W/ SOME INHIBITION Electronically Signed By: Cristian Gusman 14-Sep-2017 21:51:50
[2017-09-07 08:43] LABS: PLATELET COUNT 240 10^3/uL (150-400)
[2017-09-07 08:50] LABS: INR 1.02 (0.83-1.16); PROTIME(PATIENT) 13.6 SEC (12.0-15.0)
[2017-09-07] MEDS ORDERED: LIDO/EPI 1% **for epidural** 30 ML SDV ONE (08:50)
[2017-09-07] MEDS ORDERED: fentaNYL 100 MCG/2 ML INJ ONE (08:50)
[2017-09-07] MEDS ORDERED: LIDOCAINE 1% 300 MG/30 ML SDV ONE (08:50)
[2017-09-07] MEDS ORDERED: BUPIVACAINE 0.5% 30 ML SDV ONE (08:50)
[2017-09-07] MEDS ORDERED: MIDAZOLAM 2 MG/2 ML VIAL ONE (08:50)
--- NOTE | 2017-09-07 09:10 | PDPROPOC ---
Sedation Plan of Care Sedation Plan of Care: vital signs stable, mental status noted, patient educated of risks, benefits, alternatives, patient can tolerate sedation ASA Classification: ASA 3 Planned drugs: fentanyl, midazolam, other (etomidate) Mallampati Score: Class 2 Mallampati Reference Image: Patient passed 3-3-2 rule?: Yes
--- NOTE | 2017-09-07 09:14 | PDGENHP ---
History and Physical - Chief Complaint Patient with history of HOCM with both open and septal alcohol ablation - History of Present Illness the patient has a history of HOCM and septal myomectomy complicated by regrowth and increasing gradient as well as ventricular tachycardia. Needs BIV upgrade because of paradoxical motion and probable pacer medicated myopathy reduced ejection fraction. History Information - Allergies/Home Medication List Allergies/Adverse Reactions: No Known Allergies Allergy (Verified 04/03/17 17:18) Home Medications: HYDROcodone/APAP 10/325 [[place] 10/325 (*)] 1 tab PO DAILY PRN 04/10/17 [Last Taken 09/04/17] [place]-3 Fatty Acids [Fish Oil 1000 mg (*)] 1,000 mg PO DAILY 04/10/17 [Last Taken 09/06/17] Pantoprazole Sodium [Protonix 40mg (*)] 40 mg PO DAILY 04/10/17 [Last Taken 06/21] Metoprolol Tartrate 75 mg PO BID 08/29/17 [Last Taken 09/06/17] Warfarin Sodium [Coumadin 2.5MG (*)] 2.5 mg PO Q2D@16 08/29/17 [Last Taken 09/03] Warfarin Sodium [Coumadin 5MG (*)] 5 mg PO Q2D@16 08/29/17 [Last Taken 09/03/17] Zolpidem Tartrate [Ambien 5MG (*)] 5 mg PO HS PRN 08/29/17 [Last Taken 08/10/17 21:00] I have personally reviewed and updated: family history, medical history, social history, surgical history - Past Medical History Additional medical history: Hypertrophic obstructive cardiomyopathy status post myomectomy in 2009. SVT. Previous episodes of the tab all the into ventricular fibrillation, terminated by his device. Moderate severe mitral regurgitation and aortic insufficiency - Surgical History Additional surgical history: Aortic valve repair, mitral valve repair, AICD placement in 2009. 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 Review of Systems Review of Systems: Physical Exam Physical Exam: Constitutional: no apparent distress Eyes: PERRL, anicteric sclera Ears, Nose, Mouth, Throat: moist mucous membranes, hearing normal, No oral thrush Cardiovascular: regular rate and rhythym, systolic murmur Respiratory: no respiratory distress, no rales or rhonchi, clear to auscultation Gastrointestinal: normoactive bowel sounds, No tenderness, No ascites Skin: warm, normal color Musculoskeletal: full muscle strength Neurologic: AAOx3 Psychiatric: interacting appropriately, not anxious Lab Data & Imaging Review 09/07/17 08:20 09/07/17 08:20 WBC 5.51 10^3/uL (3.80-9.50) 09/07/17 08:20 RBC 6.01 10^6/uL (4.40-6.38) 09/07/17 08:20 Hgb 16.0 g/dL (13.7-17.5) 09/07/17 08:20 Hct 47.4 % (40.0-51.0) 09/07/17 08:20 MCV 78.9 fL (81.5-99.8) L 09/07/17 08:20 MCH 26.6 pg (27.9-34.1) L 09/07/17 08:20 MCHC 33.8 g/dL (32.4-36.7) 09/07/17 08:20 RDW 17.0 % (11.5-15.2) H 09/07/17 08:20 Plt Count 240 10^3/uL (150-400) 09/07/17 08:20 MPV 9.4 fL (8.7-11.7) 09/07/17 08:20 Neut % (Auto) 59.7 % (39.3-74.2) 09/07/17 08:20 Lymph % (Auto) 28.9 % (15.0-45.0) 09/07/17 08:20 [place] % (Auto) 7.4 % (4.5-13.0) 09/07/17 08:20 Eos % (Auto) 2.5 % (0.6-7.6) 09/07/17 08:20 Baso % (Auto) 1.1 % (0.3-1.7) 09/07/17 08:20 Nucleat RBC Rel Count 0.0 % (0.0-0.2) 09/07/17 08:20 Absolute Neuts (auto) 3.29 10^3/uL (1.70-6.50) 09/07/17 08:20 Absolute Lymphs (auto) 1.59 10^3/uL (1.00-3.00) 09/07/17 08:20 Absolute Monos (auto) 0.41 10^3/uL (0.30-0.80) 09/07/17 08:20 Absolute Eos (auto) 0.14 10^3/uL (0.03-0.40) 09/07/17 08:20 Absolute Basos (auto) 0.06 10^3/uL (0.02-0.10) 09/07/17 08:20 Absolute Nucleated RBC 0.00 10^3/uL (0-0.01) 09/07/17 08:20 Immature Gran % 0.4 % (0.0-1.1) 09/07/17 08:20 Immature Gran # 0.02 10^3/uL (0.00-0.10) 09/07/17 08:20 PT 13.6 SEC (12.0-15.0) 09/07/17 08:20 INR 1.02 (0.83-1.16) 09/07/17 08:20 Sodium 137 mEq/L (135-145) 09/07/17 08:20 Potassium 4.6 mEq/L (3.3-5.0) 09/07/17 08:20 Chloride 106 mEq/L (97-110) 09/07/17 08:20 Carbon Dioxide 26 mEq/l (22-31) 09/07/17 08:20 Anion Gap 5 mEq/L (8-16) L 09/07/17 08:20 BUN 15 mg/dL (7-23) 09/07/17 08:20 Creatinine 0.8 mg/dL (0.7-1.3) 09/07/17 08:20 Estimated GFR > 60 09/07/17 08:20 Glucose 90 mg/dL (70-100) 09/07/17 08:20 Calcium 9.1 mg/dL (8.5-10.4) 09/07/17 08:20 Visualized and Interpreted EKG results: Yes Assessment & Plan Assessment: Patient with persistently low ejection fraction less than 30%. He needs a BIV Defib upgrade because ejection fraction has not improved post surgery. I have discussed risks benefits and alternatives of this procedure with the patient who understands and is willing to proceed as planned. Plan: As Above.
[2017-09-07] MEDS ORDERED: ETOMIDATE 40 MG/20 ML INJ ONE ×2 (09:43→10:24)
--- NOTE | 2017-09-07 10:31 | EPPROC ---
Electrophysiology Procedure Note: PROCEDURE: BIV upgrade DATE OF PROCEDURE: 09/07/2017 EXPLANTED DEVICE: Biotronik Ilesto 7 DR-T DF-1 [id number], serial #[id number]. Defibrillator needs upgrade to BiV configuration. IMPLANTED DEVICE: Itrevia 7 HF-T DF-1, serial #[id number]. LEADS: The right atrial lead is a Biotronik Setrox S 45, serial # [id number]. The right ventricular lead is a Biotronik Linox Smart SD 65/18, serial # [id number]. The left ventricular lead is a Biotronik Myopore 54, serial # [id number]. 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 PROCEDURE IN DETAIL: After informed consent was obtained and n.p.o. status was confirmed, the region of the left subclavicular fossa was cleaned, prepped and draped in a sterile fashion. Approximately 20 mL of 1% lidocaine was utilized for local anesthesia. The skin was sharply incised with a #10 blade. Electrocautery and local pressure were used for hemostasis. Sharp and blunt dissection was used to access the pacemaker pocket overlying the pectoralis major fascia. The pocket was thoroughly flushed and checked for bleeding. Hemostasis was established and the old device was removed from the pocket. The patient had two ventricular leads placed on the lateral wall during his previous surgery. These are screw-in bipolar leads. The pocket was dissected down to the existing LV leads. The atrial and ventricular lead set screws were loosened. The right ventricular lead set screw was retracted and the lead was successfully removed from the old device. The atrial lead serial number was checked and placed in the upper pole lead housing of the new pulse generator and set screw firmly applied. The procedure was repeated for the RV lead and defibrillator coils with the quadripolar set screw. The right ventricular lead threshold was tested and found to be 0.7 V at 0.4 ms width. R-wave amplitude was measured at 12.3 mV with a good current of injury. Lead impedance was 654 Ohms. Atrial lead threshold was tested at 0.8 V at 0.5 ms width. P-wave amplitude was 3.5 mV, lead impedance was 477 Ohms. The left ventricular lead thresholds were tested and the best of the 2 leads was found to be 2.0 V at 0.4 ms width. The R wave amplitude was 12 mV, lead impedance was 388 Ohms. The second LV lead was capped. Defibrillator shock coil high voltage impedance was 54 Ohms. The device was placed in the pocket and sutured in place with #0 Ethibond. The skin was closed with a 3-layered 3-0 Vicryl, 2-0 Vicryl and 4-0 Monocryl repair with excellent wound edge opposition and hemostasis documented. The V fib zone is set at 187 BPM with ATP x 1 only if the rhythm meets stability criteria (12 cycles) otherwise the device will deliver a 36 Joule shocks x 1 cycles followed by 40 Joule x 5 if needed. The patient returned to the post cath recovery unit in good and stable condition where a stat postoperative chest x-ray and EKG were obtained. There was no evidence of pneumothorax and the wires appeared to be in stable position. FINAL IMPRESSION: Successful elective pulse generator Biventricular defibrillator replacement without immediate complication. Patient Problems: Problems Problem Status Onset Acute blood loss anemia Acute Mitral valve insufficiency and aortic valve insufficiency Acute S/P ablation of ventricular arrhythmia Acute ~04/14/17 S/P aortic valve replacement with bioprosthetic valve Acute ~04/14/17 S/P mitral valve replacement with bioprosthetic valve Acute ~04/14/17 S/P ventricular septal myectomy Acute ~04/14/17 s/p LV epicardial lead placement x 2 Acute ~04/14/17 Hypertrophic cardiomyopathy Chronic NSVT (nonsustained ventricular tachycardia) Chronic Presence of combination internal cardiac defibrillator (ICD) and pacemaker Chronic
[2017-09-07] MEDS ORDERED: METOPROLOL TARTRATE 5 MG/5 ML INJ IVP ONE ×2 (12:10→12:40)
[2017-09-07] MEDS ORDERED: METOPROLOL TARTRATE 5 MG/5 ML INJ ONE (12:12)
--- NOTE | 2017-09-07 12:31 | CPEKG ---
Heart Rate: 81 RR Interval: 741 P-R Interval: 158 QRSD Interval: 160 QT Interval: 436 QTC Interval: 506 P [place]: 0 QRS [place]: 90 T Wave [place]: -50 EKG Severity - ABNORMAL ECG - EKG Impression: A-V DUAL-PACED COMPLEXES W/ SOME INHIBITION Electronically Signed By: Cristian Gusman 14-Sep-2017 21:51:40
[2017-09-07] MEDS ORDERED: ONDANSETRON 4 MG/2 ML VIAL ONE (13:17)
[2017-09-07] MEDS ORDERED: ONDANSETRON 4 MG/2 ML VIAL IVP PRN (13:28)
[2017-09-07] MEDS ORDERED: ZOLPIDEM TARTRATE 5 MG TAB PO PRN (14:38)
[2017-09-07] MEDS ORDERED: CYCLOBENZAPRINE 10 MG TAB PO PRN (14:38)
[2017-09-07] MEDS: HYDROCODONE/APAP 10/325 TAB PO PRN ×2 (15:14→20:56)
[2017-09-07] MEDS: METOPROLOL TARTRATE 50 MG TAB PO SCH (20:52)
[2017-09-08 04:23] LABS: PLATELET COUNT 221 10^3/uL (150-400)
[2017-09-08] MEDS: HYDROCODONE/APAP 10/325 TAB PO PRN (05:18)
[2017-09-08 07:30] VITALS: BP 130/81
[2017-09-08] MEDS: METOPROLOL TARTRATE 50 MG TAB PO SCH (08:46)
[2017-09-08] MEDS ORDERED: FUROSEMIDE 40 MG TAB PO SCH (09:00)
[2017-09-08] MEDS ORDERED: OMEGA-3 FATTY ACIDS 1,000 MG CAP PO SCH (09:00)
[2017-09-08] MEDS ORDERED: POTASSIUM CL 20 MEQ TAB PO SCH (09:00)
[2017-09-08] MEDS ORDERED: ASPIRIN 81 MG CHEWABLE TAB PO SCH (09:00)
--- NOTE | 2017-09-08 09:04 | CPEKG ---
Heart Rate: 70 RR Interval: 857 P-R Interval: 128 QRSD Interval: 156 QT Interval: 420 QTC Interval: 454 P [place]: 58 QRS [place]: 130 T Wave [place]: -52 EKG Severity - ABNORMAL ECG - EKG Impression: A-V DUAL-PACED RHYTHM WITH SOME INHIBITION Electronically Signed By: Cristian Gusman 14-Sep-2017 21:51:27
--- NOTE | 2017-09-08 11:15 | GDS ---
[f rep st] DISCHARGE SUMMARY DISCHARGE DIAGNOSES: 1. Nonischemic cardiomyopathy, likely pacer mediated, status post upgrade to a biventricular implant able cardioverter defibrillator. 2. History of hypertrophic obstructive cardiomyopathy. 3. Left bundle branch block. 4. Nonsustained ventricular tachycardia. 5. Recent mitral and aortic valve repair. 6. Frequent premature ventricular contractions. HOSPITAL COURSE: For detailed H and P, please see prior dictation. Briefly, the patient is a 52-yea r-old male with a history of hypertrophic cardiomyopathy, left bundle branch block and nonsustained v entricular tachycardia, status post dual-chamber ICD in December 2014. He had a recent redo median st ernotomy with redo transaortic septal myectomy, left atrial appendage clip and placement of 2 LV lead s in anticipation for possible biventricular pacing. He was seen in followup and was having frequent PVCs occurring in trigeminy. An echocardiogram showed a severely reduced LV function with an ejecti on fraction of 23% with global hypokinesis. This was thought to be related to pacer mediated cardiom yopathy. Dr. Broderick was consulted, and it was recommended that he be upgraded to a BiV ICD. On September 07, he was electively taken to the cardiac catheterization laboratory by Dr. Mariano Baker. He had succe ssful elective pulse generator biventricular defibrillator replacement with a new Biotronik device. The procedure was uncomplicated. The following morning, the patient had mild discomfort over the ICD site without any significant pain. He was monitored on telemetry and had frequent PVCs occurring in trigeminy. They did seem to decrease in frequency by the following day. A chest x-ray the day of d ischarge was negative for pneumothorax. PHYSICAL EXAMINATION: GENERAL: Patient appears in no acute distress. VITALS: Blood pressure 130/8 1, heart rate 72, oxygen saturation of 93% on room air, afebrile. LUNGS: Clear to auscultation. No wheezes, rhonchi, or crackles auscultated. CARDIAC: Regular rate and rhythm with systolic murmur p resent. CHEST WALL: ICD site is clean, intact without any evidence of significant hematoma or infec tion. DISCHARGE MEDICATIONS: His medications are unchanged. He will continue fish oil 1000 mg daily, Prot jalyn 40 mg daily, [place] p.r.n. for pain, aspirin 81 mg daily, Flexeril 10 mg p.o. t.i.d. p.r.n., Lasi x 40 mg daily, potassium 20 mEq daily, Ambien 5 mg at bedtime p.r.n., warfarin 5 mg alternating with 2.5 mg daily, metoprolol 75 mg b.i.d. PLAN: The patient is currently stable and ready for discharge home. He has been given pacer precaut ions. He is scheduled for pacer interrogation on September 14 at 9:30 at [facility]. He is also dilia eduled to follow up with Dr. Baker on September 20 at 10:30. His INR is currently subtherapeutic at 1. 02. He will resume Coumadin. His blood pressure has been elevated this hospitalization, running in the 140s over 90s. This is ext remely unusual for him. His blood pressure typically runs in the 90s. I have not made any changes t o his medical regimen today. He will keep a blood pressure log over the next 2 weeks. If he remains hypertensive, consider titrating beta emre and adding GERARDO inhibitor. /[id number]/MODL
--- NOTE | 2017-09-08 14:27 | ASDISCHSUM ---
Discharge Information Plan Status:Home with No Needs Medically Cleared to Leave:09/08/2017 Discharge Date:09/08/2017 10:57 AM CM D/C Disposition:Home, Routine, Self-Care ADT D/C Disposition:Home, Routine, Self-Care Projected Discharge Date:09/08/2017 10:57 AM Transportation at D/C: Discharge Delay Reason: Follow-Up Date:09/08/2017 10:57 AM Discharge Slot: Final Diagnosis: Placement Information Patient Contact Information Contact Name:PHILLIP Relationship:Friend Address: City:[facility] Alternate Phone: [facility] Code:[place] Email: Financial Information Financial Class:Medicaid Primary Plan Desc:MEDICAID [facility] FIRST AUDIO T[employer] LIBRARIAN Primary Plan Number:[id number] Secondary Plan Desc: Secondary Plan Number: Assessment Information LACE LACE Length of stay for Answers: Less than 1 day current admission Acuity / Level of Answers: No Care: Did the patient have an inpatient admission? Comorbidities - select Answers: Other Notes: hypertrophic obstructiv e all that apply cardiomyopathy s/p myomectomy, SVT # of Emergency department Answers: 1-2 visits in the last 6 months Score: 2 Date Signed: 09/08/2017 02:25 PM Electronically Signed By:Kenyatta Simpson RN Case Management Discharge Plan Note Case Management Discharge Discharge Order Complete? Answers: Yes Patient to Obtain Answers: Independently Medications Transportation Arranged Answers: Family/Friends Discharge Comments Notes: 09/08/2017 Case Management NOte Referred pt to [facility]. No further d/c needs identified, discharged independent. Date Signed: 09/08/2017 02:26 PM Electronically Signed By:Kenyatta Simpson RN Intervention Information
== END 2017-09-08 10:57 | disposition home or self-care (01) ==
LOC: FCATH 07:48 → F2W 12:00
PROVIDERS: ADMIT Internal Medicine Cardiovascular Disease; ATTEND Internal Medicine Cardiovascular Disease
PROC: 0JH608Z Insertion of Defibrillator Generator into Chest Subcutaneous Tissue and Fascia, Open Approach (ICD-10-PCS; principal; 2017-09-07)
PROC: 0JPT0PZ Removal of Cardiac Rhythm Related Device from Trunk Subcutaneous Tissue and Fascia, Open Approach (ICD-10-PCS; principal; 2017-09-07)
DX: I42.9 Cardiomyopathy, unspecified (principal); I44.7 Left bundle-branch block, unspecified; I47.1 Supraventricular tachycardia; Z95.2 Presence of prosthetic heart valve
CPT/HCPCS: 33264; 71045; 71046; 93005; 93308; A4649; C1882; J0690; J2250; J2405; J3010

== ENCOUNTER 2017-09-09 10:31 | Emergency (ER) | payer MEDICAID ==
[2017-09-09 10:37] VITALS: BP 139/85
--- NOTE | 2017-09-09 10:45 | EDPHY ---
H & P Stated Complaint: Redness/swelling this am @pacemaker insertion site;ok yesterday @dr office Time Seen by Provider: 09/09/17 10:41 HPI/ROS: CHIEF COMPLAINT: Swelling left anterior chest wall HISTORY OF PRESENT ILLNESS: The patient has a history of hypertrophic cardiomyopathy status post aortic and mitral valve repair with recent pacemaker placement performed by Dr. Baker on September 07. The patient was discharged from the hospital yesterday. He presents to the ED today with increased swelling in the area of his pacemaker pocket. The patient denies fever. He denies additional acute complaints. The patient resumed taking his Coumadin following his procedure. His INR had been subtherapeutic prior to his planned procedure. REVIEW OF SYSTEMS: A comprehensive 10 point review of systems is otherwise negative aside from elements mentioned in the history of present illness. Source: Patient Exam Limitations: No limitations - Personal History Current Tetanus Diphtheria and Acellular Pertussis (TDAP): Yes Tetanus Vaccine Date: 2013 - Medical/Surgical History Hx Asthma: No Hx Chronic Respiratory Disease: No Hx Diabetes: No Hx Cardiac Disease: No Hx Renal Disease: No Hx Cirrhosis: No Hx Alcoholism: No Hx HIV/AIDS: No Hx Splenectomy or Spleen Trauma: No Other PMH: AVR & MVR repair w/ aneurysm repair 08/2011. RHD, GERD. 08/16/13 ICD / PPM placed, hypertrophic cardiomyopathy with myometomy ablation July 12, 2016. - Social History Smoking Status: Never smoked - Physical Exam Exam: General Appearance: Alert, no distress Eyes: Pupils equal and round no pallor or injection ENT, Mouth: Mucous membranes moist Respiratory: There are no retractions, lungs are clear to auscultation Cardiovascular: Regular rate and rhythm Gastrointestinal: Abdomen is soft and nontender, no masses, bowel sounds normal Neurological: A&O, normal motor function, normal sensory exam, normal cranial nerves Skin: Hematoma noted to left anterior chest wall and pacemaker pocket, no discharge, dressing clean and dry Musculoskeletal: Neck is supple nontender Extremities: symmetrical, full range of motion Constitutional: Initial Vital Signs Temperature (C) 36.3 C 09/09/17 10:34 Heart Rate 70 09/09/17 10:34 Respiratory Rate 16 09/09/17 10:34 Blood Pressure 139/85 H 09/09/17 10:34 O2 Sat (%) 98 09/09/17 10:34 O2 Delivery Mode Room Air Allergies/Adverse Reactions: No Known Allergies Allergy (Verified 09/09/17 10:33) Home Medications: Medication Instructions Recorded HYDROcodone/APAP 10325 [[place] 1 tab PO DAILY PRN 04/10/17 10/325 (*)] [place]-3 Fatty Acids [Fish Oil 1000 1,000 mg PO DAILY 04/10/17 mg (*)] Pantoprazole Sodium [Protonix 40mg 40 mg PO DAILY 04/10/17 (*)] Aspirin [Aspirin 81mg (*)] 81 mg PO DAILY tab.chew 04/19/17 Cyclobenzaprine [Flexeril 10 MG 10 mg PO TID PRN #15 tab 04/19/17 (*)] Furosemide [Lasix 40 MG (*)] 40 mg PO DAILY #30 tab 04/19/17 Potassium Cl [Klor-Con 20 meq (*)] 20 meq PO DAILY #30 tab 04/19/17 Metoprolol Tartrate 75 mg PO BID 08/29/17 Warfarin Sodium [Coumadin 2.5MG 2.5 mg PO Q2D@16 08/29/17 (*)] Warfarin Sodium [Coumadin 5MG (*)] 5 mg PO Q2D@16 08/29/17 Zolpidem Tartrate [Ambien 5MG (*)] 5 mg PO HS PRN 08/29/17 Medical Decision Making ED Course/Re-evaluation: Consultation was made with Dr. Tobin Thompson from Cardiology at 11:00 a.m.. He will evaluate the patient in the emergency department. Departure - Departure Disposition: Home, Routine, Self-Care Clinical Impression: Hematoma of pacemaker pocket Condition: Good Instructions: Hematoma (ED) Additional Instructions: 1. Follow up with Cardiology as scheduled on Monday. 2. Return to the ED for markedly worsening swelling, fever or pain. Referrals: CHYNA BOB [Primary Care Provider] - As per Instructions
== END 2017-09-09 11:30 | disposition home or self-care (01) ==
DX: T82.897A Other specified complication of cardiac prosthetic devices, implants and grafts, initial encounter (principal); Z79.01 Long term (current) use of anticoagulants; Z79.82 Long term (current) use of aspirin; Y71.2 Prosthetic and other implants, materials and accessory cardiovascular devices associated with adverse incidents

== ENCOUNTER 2017-09-15 09:27 | Inpatient (IN) | payer MEDICAID ==
[2017-09-15] MEDS ORDERED: FAMOTIDINE 20 MG TAB PO ONE (09:34)
[2017-09-15] MEDS ORDERED: diphenhydrAMINE 25 MG CAP PO ONE ×2 (09:34→09:48)
[2017-09-15] MEDS ORDERED: DIAZEPAM 5 MG TAB PO ONE ×2 (09:34→09:48)
[2017-09-15] MEDS ORDERED: ASPIRIN EC 325 MG TAB PO ONE (09:34)
[2017-09-15] MEDS ORDERED: NS 1,000 ML IV ONE (09:34)
[2017-09-15] MEDS ORDERED: BACITRACIN IRRIGATION/NS 50,000 UNITS/1,000 ML BTL IRR ONE (09:48)
[2017-09-15] MEDS ORDERED: ceFAZolin 2 GM/DEXTROSE 100 ML IV ONE (09:48)
--- NOTE | 2017-09-15 09:51 | CPEKG ---
Heart Rate: 79 RR Interval: 759 P-R Interval: 224 QRSD Interval: 164 QT Interval: 452 QTC Interval: 519 P [place]: -29 QRS [place]: 118 T Wave [place]: -58 EKG Severity - ABNORMAL ECG - EKG Impression: ATRIAL-SENSED VENTRICULAR-PACED COMPLEXES Electronically Signed By: Carlos Broderick 16-Sep-2017 11:23:12
[2017-09-15 10:20] LABS: PLATELET COUNT 279 10^3/uL (150-400)
[2017-09-15 10:35] LABS: INR 1.07 (0.83-1.16); PROTIME(PATIENT) 14.1 SEC (12.0-15.0)
--- NOTE | 2017-09-15 11:07 | PDHPUP ---
History & Physical Update H&P update statement: This history and physical update is based on an assessment of the patient which was completed after admission or registration (within 24 hours), but prior to the surgery/procedure. We will proceed with the planned hematoma evacuation from the pacer site. H&P update: H&P reviewed & patient examined, no change in patient's condition since H&P completed H&P changes: The patient's pacer site has remained swollen, firm, and tender post device upgrade. The site will require hematoma excavation.
--- NOTE | 2017-09-15 11:14 | PDANEPAE ---
ANE History of Present Illness here for hematoma evacuation ANE Past Medical History - Cardiovascular History Hx Hypertension: Yes Hx Arrhythmias: Yes Hx Chest Pain: No Hx Coronary Artery / Peripheral Vascular Disease: No Hx CHF / Valvular Disease: Yes Hx Palpitations: Yes - Pulmonary History Hx COPD: No Hx Asthma/Reactive Airway Disease: No Hx Recent Upper Respiratory Infection: No Hx Oxygen in Use at Home: No Hx Sleep Apnea: No - Neurologic History Hx Cerebrovascular Accident: No Hx Seizures: No Hx Dementia: No - Endocrine History Hx Diabetes: No - Renal History Hx Renal Disorders: No - Liver History Hx Hepatic Disorders: No - Neurological & Psychiatric Hx Hx Neurological and Psychiatric Disorders: Yes Neurological / Psychiatric History Comment: foot drop left - Cancer History Hx Cancer: No - Congenital Disorder History Hx Congenital Disorders: No - GI History Hx Gastrointestinal Disorders: Yes Gastrointestinal History Comment: pre cancerous polyps removed. reflux - Chronic Pain History Chronic Pain: Yes (back pain) ANE Review of Systems Review of systems is: negative Review of Systems: - Exercise capacity Exercise capacity: >=4 METS - Pacemaker Date Pacemaker Last Checked: 03/08/17 ANE Patient History - Allergies Allergies/Adverse Reactions: No Known Allergies Allergy (Verified 09/09/17 10:33) - Home Medications Home medications: home medication list seen and reviewed Home Medications: [place]-3 Fatty Acids [Fish Oil 1000 mg (*)] 1,000 mg PO DAILY 04/10/17 [Last Taken 09/09/17 21:00] Pantoprazole Sodium [Protonix 40mg (*)] 40 mg PO DAILY 04/10/17 [Last Taken 12/21 21:00] Metoprolol Tartrate 75 mg PO BID 08/29/17 [Last Taken 09/14/17 20:00] Warfarin Sodium [Coumadin 2.5MG (*)] 2.5 mg PO Q2D@16 08/29/17 [Last Taken 09/03 20:00] Warfarin Sodium [Coumadin 5MG (*)] 5 mg PO Q2D@16 08/29/17 [Last Taken 09/08/17 20:00] Zolpidem Tartrate [Ambien 5MG (*)] 5 mg PO HS PRN 08/29/17 [Last Taken 08/10/17 21:00] - NPO status NPO Status: no food or drink >8 hours - Smoking Hx Smoking Status: Never smoked - Family Anes Hx Family Hx Anesthesia Complications: none ANE Labs/Vital Signs - Labs Result Diagrams: 09/15/17 10:00 09/15/17 10:00 - Vital Signs Height: 177.8 cm Weight: 83.915 kg ANE Physical Exam - Airway Neck exam: FROM Mallampati Score: Class 1 - Pulmonary Pulmonary: no respiratory distress - Cardiovascular Cardiovascular: regular rate and rhythym - ASA Status ASA Status: III ANE Anesthesia Plan Anesthesia Plan: GA with mask
[2017-09-15] MEDS ORDERED: PROPOFOL/EMULSION 500 MG/50 ML BOTTLE IV ONE ×2 (11:24)
[2017-09-15] MEDS ORDERED: MIDAZOLAM 2 MG/2 ML VIAL ONE (11:25)
[2017-09-15] MEDS ORDERED: fentaNYL 100 MCG/2 ML INJ ONE ×2 (11:25)
[2017-09-15] MEDS ORDERED: PHENYLEPHRINE HCL 100 MCG/ML SYR ONE (11:26)
[2017-09-15] MEDS ORDERED: ePHEDrine SULFATE 25 MG/5 ML SYR ONE (11:26)
[2017-09-15] MEDS ORDERED: LIDOCAINE 1% 300 MG/30 ML SDV ONE (11:27)
[2017-09-15] MEDS ORDERED: BUPIVACAINE 0.5% 30 ML SDV ONE (11:27)
[2017-09-15] MEDS ORDERED: LIDO/EPI 1% **for epidural** 30 ML SDV ONE (11:27)
[2017-09-15] MEDS ORDERED: VANCOMYCIN 1 GM in NS 250 ML IRR ONE (12:00)
--- NOTE | 2017-09-15 12:49 | EPPROC ---
Electrophysiology Procedure Note: PROCEDURE: Pacemaker Hematoma Evacuation DATE OF PROCEDURE: 09/15/17 REASON FOR PROCEDURE: The patient had his device upgraded to a BiV defibrillator. He subsequently developed a large hematoma that required evacuation to reduce the risk of infection. DEVICE: Biotronik Itrevia 7 HF-T DF-1, Serial #: [id number]. Device was placed 75/ 18. LEADS: The atrial lead is a Biotronik Setrox S 45, serial # [id number]. The right ventricular lead is a Biotronik linox Smart SO 65/18, serial # [id number]. The left ventricular lead/defibrillator coil is a Biotronik Mopore 54, serial # [id number]. COMPLICATIONS: None. FENCE INSTALLER HELPER: Mariano Baker MD PROCEDURE IN DETAIL: After informed consent was obtained and n.p.o. status was confirmed, the region of the left subclavicular fossa was cleaned, prepped and draped in a sterile fashion. Approximately 30 mL of 1% lidocaine was utilized for local anesthesia. The skin was sharply incised with a #10 blade. Electrocautery and local pressure were used for hemostasis. Sharp and blunt dissection was used to access the pacemaker pocket overlying the pectoralis major fascia. The pocket was thoroughly flushed and drained. The atrial and ventricular lead set screws were not manipulated. The device was placed in the pocket in a Bioenvelope to help reduce the risk of infection and sutured in place with #0 Ethibond. The atrial lead and ventricular lead serial numbers were both checked. The left ventricular lead threshold was tested and found to be 1.8 V at 0.4 ms width. R- wave amplitude was measured at 20.0 mV. Lead impedance was 361 Ohms. The right atrial lead threshold was tested at 1.2 V at 0.4 ms width. P-wave amplitude was 2.4 mV, lead impedance was 520 Ohms. The right ventricular lead threshold was tested and found to be at 0.9 V at 0.4 ms width. R- wave amplitude was measured at 14.8 mV, lead impedance was 433 Ohms. The device was placed back in the pocket and a BioEnvelope was sutured in place with #0 Silk. The skin was closed with a 3-layered 3-0 Vicryl, 2-0 Vicryl and 4-0 Monocryl repair with excellent wound edge opposition and hemostasis documented. The patient returned to the post cath recovery unit in good and stable condition where a stat postoperative chest x-ray and EKG were obtained. There was no evidence of pneumothorax and the wires appeared to be in stable position. FINAL IMPRESSION: Successful pacemaker hematoma evacuation. Patient Problems: Problems Problem Status Onset Acute blood loss anemia Acute Mitral valve insufficiency and aortic valve insufficiency Acute S/P ablation of ventricular arrhythmia Acute ~04/14/17 S/P aortic valve replacement with bioprosthetic valve Acute ~04/14/17 S/P mitral valve replacement with bioprosthetic valve Acute ~04/14/17 S/P ventricular septal myectomy Acute ~04/14/17 s/p LV epicardial lead placement x 2 Acute ~04/14/17 Hypertrophic cardiomyopathy Chronic NSVT (nonsustained ventricular tachycardia) Chronic Presence of combination internal cardiac defibrillator (ICD) and pacemaker Chronic
[2017-09-15] MEDS ORDERED: PROPOFOL 200 MG/20 ML VIAL ONE (12:50)
[2017-09-15] MEDS ORDERED: OXYCODONE/APAP 5/325 TAB ONE (14:06)
[2017-09-15] MEDS: OXYCODONE/APAP 5/325 TAB PO PRN ×2 (14:10→21:51)
--- NOTE | 2017-09-15 15:46 | POSTANESTH ---
Post Anesthetic Evaluation Cardiovascular Status: Normal, Stable Respiratory Status: Normal, Stable Level of Consciousness/Mental Status: Can Participate in Eval Pain Control: Adequate, Prn Tx Ordered Nausea/Vomiting Control: Adequate, Prn Tx Ordered Complications Possibly Related to Anesthesia: None Noted
[2017-09-15] MEDS ORDERED: ZOLPIDEM TARTRATE 5 MG TAB PO PRN (16:38)
[2017-09-15] MEDS ORDERED: CYCLOBENZAPRINE 10 MG TAB PO PRN (16:38)
[2017-09-15] MEDS ORDERED: ONDANSETRON 4 MG/2 ML VIAL IVP PRN (16:52)
[2017-09-15] MEDS: METOPROLOL TARTRATE 50 MG TAB PO SCH (21:37)
[2017-09-16 03:55] LABS: PLATELET COUNT 283 10^3/uL (150-400)
[2017-09-16] MEDS: OXYCODONE/APAP 5/325 TAB PO PRN ×3 (08:00→21:28)
[2017-09-16] MEDS: METOPROLOL TARTRATE 50 MG TAB PO SCH ×2 (08:00→21:29)
[2017-09-16] MEDS ORDERED: AMITRIPTYLINE HCL 25 MG TAB PO PRN (13:56)
--- NOTE | 2017-09-16 14:14 | PDCARPN ---
Cardiology Progress Note Chief Complaint: Pain and swelling at pacemaker insertion site, left chest. Assessment/Plan: Assessment: 52-year-old male with significant past history that includes HOCM, LBBB, NSVT, valvular heart disease status post aortic valve replacement bioprosthetic, mitral valve replacement bioprosthetic, septal myectomy, and left atrial appendage clip (CT surgery 04/14/2017), nonischemic cardiomyopathy (EF 23% with global hypokinesis 07/19/2017 echo), non flow limiting CAD (cardiac catheterization 04/13/2017). He had recently underwent AICD upgrade to biventricular on September 07, developing significant swelling of left pectoralis major amount low at pacemaker insertion site. Underwent 09/15/2017, hematoma evacuation. Today: Patient reports significant increased swelling at insertion site since around 2:00 a.m.. Site is tender to touch,, incision is clean dry and intact without signs of infection. He denies of any chest pressure, pain, shortness of breath. Appears to be fairly euvolemic on physical examination. Labs are stable this morning with H&H at 14.1 and 41.2. Sodium 134, normal electrolyte renal function. Continuous desk monitor showing AV paced rhythm with no malignant arrhythmias. Patient denies of any therapeutic discharge from his AICD.. Patient was seen with Dr. Broderick. Plan: 1. Hematoma at AICD insertion site: Patient is status post 1 day since hematoma evacuation. Appears to be having increased swelling at site, with regain of hematoma. Recommendation by Dr. Broderick is continue to monitor with no intervention at this time due to increase chance of infection if hematoma evacuation is required again. Will hold aspirin in warfarin at this time. Pain control p.r.n. With oxycodone. Ice bag Q 20 min on and off. Site marked 2. Nonischemic cardiomyopathy: Appears to be fairly euvolemic on physical examination today. Recent biventricular upgrade. Device check during procedure showing functioning within normal limits. 3. Non flow limiting CAD: Based off of cardiac catheterization earlier this year, patient's aspirin therapy on hold at this time due to recurring hematoma at pacemaker insertion site. 4. Valvular heart disease: April of this year underwent mitral and aortic valve replacement (bioprosthetic). Appears to be euvolemic. Had been on warfarin, temporarily on hold due to ongoing hematoma. Recheck INR in a.m.. 5. Nonsustained VT: None has been noted. Patient has an AICD. Laboratory studies showing potassium 4.3 today. Repeat BMP in a.m.. Due the patient's recurring hematoma status post hematoma evacuation yesterday, pain control, and significant comorbidities, patient will be transition to inpatient status, with need to be monitor for greater than 2 midnights. 09/16/17 14:21 Subjective: Patient reporting pain at insertional site, with increased swelling. He reports no chest pressure or pain suggesting of ischemia. Reports no shortness of breath. Denies of any palpitations, lightheadedness, near-syncope or syncopal events. Reviewed/Discussed With: other (Dr Broderick) Objective: Vital Signs (8 Hrs) Temp Pulse Resp BP Pulse Ox 09/16/17 12:30 36.8 C 09/16/17 11:27 37.2 C 70 12 113/63 93 09/16/17 07:47 36.8 C 79 16 125/87 H 91 L Intake/Output (24 Hrs) 09/15/17 09/16/17 09/17/17 05:59 05:59 05:59 Intake Total 850 Balance 850 Intake: Oral (ml) 850 Other: Weight 83.915 kg Number of Voids Toilet 3 Urinal 2 Result Diagrams: 09/16/17 03:34 09/16/17 03:34 - Physical Exam Constitutional: WDWN, no apparent distress Ears, Nose, Mouth, Throat: moist mucous membranes Cardiovascular: regular rate and rhythm, no rubs, no gallops, systolic murmur (1 /6 systolic murmur noted along left sternal), pulses symmetric bilat, No jugular vein distention, No carotid bruit Peripheral Pulses: 1+: carotid (R), carotid (L), dorsalis-pedis (R), dorsalis- pedis (L) Respiratory: clear to auscultate bilat, no crackles, no wheezes Gastrointestinal: normoactive bowel sounds Skin: no rashes, warm, no edema, other (AICD insertion site, left anterior chest , with palm size hematoma that is tender to touch. AICD incision dressing clean dry and intact. No redness, swelling, drainage.) Neurologic: AAOx3 Psychiatric: cooperative, interactive, following commands ICD10 Worksheet Patient Problems: Problems Problem Status Onset Acute blood loss anemia Acute S/P ventricular septal myectomy Acute ~04/14/17 s/p LV epicardial lead placement x 2 Acute ~04/14/17 S/P ablation of ventricular arrhythmia Acute ~04/14/17 S/P mitral valve replacement with bioprosthetic valve Acute ~04/14/17 S/P aortic valve replacement with bioprosthetic valve Acute ~04/14/17 Mitral valve insufficiency and aortic valve insufficiency Acute Presence of combination internal cardiac defibrillator (ICD) and pacemaker Chronic NSVT (nonsustained ventricular tachycardia) Chronic Hypertrophic cardiomyopathy Chronic
--- NOTE | 2017-09-16 14:33 | ASMTCMCOM ---
CM Note CM Note Notes: Pt is s/p pacer placement and MVR 09/07/17. He was in the ED 09/09/17 for redness at the pacemaker insertion site and admitted yesterday for a hematoma at the AICD insertion site which has been evacuated. CM will follow for any d/c needs. Date Signed: 09/16/2017 02:32 PM Electronically Signed By:SUZIE Galindo
--- NOTE | 2017-09-16 20:41 | PDMN ---
Medical Necessity Medical necessity: change to IP; los>2mn s/p 09/15 hematoma evacuation at AICD insertion site upgrade on 09/07/17; requires continued monitoring, pain control, hold AC, ice to area; comorbid nonischemic cardiomyopathy, CAD, valvular heart disease s/p AVR/MVR, hx HOCM, NSVT; per order and progress note 09/16/17
[2017-09-17] MEDS: PANTOPRAZOLE SODIUM 40 MG TAB PO SCH ×2 (00:16→20:31)
[2017-09-17 03:53] LABS: INR 1.12 (0.83-1.16); PROTIME(PATIENT) 14.6 SEC (12.0-15.0)
--- NOTE | 2017-09-17 09:04 | PDCARPN ---
Cardiology Progress Note Assessment/Plan: Assessment: Hypertrophic cardiomyopathy Complete AV block, pacemaker dependent, recent upgrade to biventricular ICD ( epicardial CS lead placed during CT surgery was connected to the device) ICD pocket hematoma Plan: Hematoma has reaccumulated after evacuation on Monday. Hematoma size is smaller than before. We will wait and watch. Manage conservatively if possible given reaccumulation. Pain is controlled with current medications. I have talked with his carrot harvester Dr. Mariano Baker who performed the procedure. He is going to come in to see another patient and will check in on Mr. Peterson at that time. 09/17/17 09:02 Subjective: Feels well. Offers no new complaints. Pain at incision site is controlled Reviewed/Discussed With: other (His primary carrot harvester Dr. Mariano Baker, his RN) Time Spent with Patient: greater than 25 minutes Time Spent with Patient: Greater than 25 minutes spent on this patients care, greater than 50% of time spent counseling, educating, and coordinating care regarding the above mentioned plan. Objective: Vital Signs (8 Hrs) Temp Pulse Resp BP Pulse Ox 09/17/17 07:37 36.8 C 78 14 106/74 90 L 09/17/17 03:13 37.1 C 87 17 111/73 92 Intake/Output (24 Hrs) 09/15/17 09/16/17 09/17/17 11:59 11:59 11:59 Intake Total 850 775 Output Total 600 Balance 850 175 Intake: Oral (ml) 850 775 Output: Urine (ml) 600 Toilet 600 Other: Weight 83.915 kg Intake Quantity Yes Sufficient Number of Voids Toilet 3 3 Urinal 2 Number of Stools Toilet 0 Result Diagrams: 09/17/17 03:26 09/17/17 03:26 Telemetry: Sinus rhythm, V paced ICD10 Worksheet Patient Problems: Problems Problem Status Onset Acute blood loss anemia Acute S/P ventricular septal myectomy Acute ~04/14/17 s/p LV epicardial lead placement x 2 Acute ~04/14/17 S/P ablation of ventricular arrhythmia Acute ~04/14/17 S/P mitral valve replacement with bioprosthetic valve Acute ~04/14/17 S/P aortic valve replacement with bioprosthetic valve Acute ~04/14/17 Mitral valve insufficiency and aortic valve insufficiency Acute Presence of combination internal cardiac defibrillator (ICD) and pacemaker Chronic NSVT (nonsustained ventricular tachycardia) Chronic Hypertrophic cardiomyopathy Chronic
[2017-09-17] MEDS: METOPROLOL TARTRATE 50 MG TAB PO SCH ×2 (09:55→20:31)
--- NOTE | 2017-09-17 13:31 | GPROG ---
[f rep st] PROGRESS NOTE INTERIM SUMMARY DATE OF SERVICE: 09/17/2017 SUBJECTIVE: Mr. Mariano Soria is a 52-year-old man with a history of HOCM status post myomectomy with a subsequent return in the growth of his septum. The patient ultimately underwent an alcohol septal ablation which was complicated by postoperative ventricular tachycardia requiring an AICD implant. T he patient recently underwent a repeat operation for surgical myomectomy under the care of Dr. Cristian Wilson on 04/14/2017. The patient had what was thought to be a valve related cardiomyopathy with itzel re aortic and mitral insufficiency and was also noted to have residual hypertrophic obstructive cardi omyopathy status post prior resection and previous septal alcohol ablation. The patient did undergo a reoperation with septal myomectomy, cryoablation of the septum and mitral anulus for ventricular ta chycardia, aortic valve replacement with a #23 Magna bioprosthesis, chordal-sparing mitral valve repl acement with a #27 Magna bioprosthesis, ligation of the left atrial appendage and 2 ventricular bipol ar pacemaker wires which were tunneled to underneath the previous pacemaker defibrillator in the left anterior chest. The patient underwent a biventricular AICD upgrade because of ongoing ventricular ectopy and a lack o f improvement in his cardiomyopathy postoperatively. We did perform a biventricular AICD upgrade on 09/07/2017. His postoperative course was complicated by an AICD pocket hematoma. His Coumadin has b een held since that time. Ultimately, because of an enlarging pocket hematoma and significant pressu re on the skin from the size of the hematoma, he underwent a hematoma evacuation and pacemaker pocket revision on 09/15. We removed approximately 150 cc of clot and liquified blood from the pocket at t hat time, it was thoroughly flushed and checked for bleeding. Hemostasis was documented prior to jose sing the pocket. We did use a bio envelop soaked in vancomycin to try to reduce the risk of infectio n of the pocket and that procedure was performed on 09/15. We even held direct pressure over the poc ket for 20 minutes following the procedure to try to reduce the risk of repeat hematoma or bleeding, and unfortunately overnight the patient developed a significant hematoma again which has prompted miguelito ping him here in the hospital. I discussed the case with both Dr. Broderick as well as Dr. Jeremy Mayer of the infectious disease service. He did have a mild fever overnight with a maximum temperature of 37 to 37.2. At the time my evaluation today, the patient is medically stable and feels well. His hemog lobin and hematocrit have been stable. His vital signs are stable and his blood pressure is 106/74. His heart rhythm has been significantly better since changing out for the biventricular device with significant improvement of the number of premature ventricular complexes. OBJECTIVE: CHEST: Examination reveals a relatively large hematoma involving the AICD/pacer pocket. The tissue is less tense and the hematoma does not involve the supraclavicular space as it did befor e, but certainly extends over the entire pectoralis region on the left side and into the mid axillary line on the left side. CARDIOVASCULAR: His heart reveals normal S1 and S2 with a positive murmur c onsistent with his history of prior aortic and mitral valve replacement. LUNGS: Clear to auscultati on bilaterally. ABDOMEN: Benign with positive bowel sounds, is nondistended, nontender. IMPRESSION AND PLAN: Mariano has recurrent automatic implantable cardioverter-defibrillator pocket hem atoma. I spent approximately 30 minutes with the patient and apply direct pressure for an extended p eriod of time over the pocket directly. We are also applying ice to this area in cycles to help redu ce the risk of bleeding. Dr. Mayer does not believe the patient would benefit from prophylactic ant ibiotics. I do think we should follow his white count, and if he develops a fever, it may be prudent to perform blood cultures to rule out bacteremia as a cause of his fever. Right now, the working di agnosis is that his low-grade fever is related to the hematoma itself and his recent operations. It would be my inclination that we avoid a repeat hematoma evacuation unless it is clearly indicated bec ause of threat of pressure-type necrosis or other problems. I have discussed these recommendations w ith the patient who understands and is willing to stay in the hospital overnight for continued monito ring. /[id number]/MODL
[2017-09-18 05:04] LABS: PLATELET COUNT 314 10^3/uL (150-400)
[2017-09-18] MEDS: METOPROLOL TARTRATE 50 MG TAB PO SCH (09:21)
[2017-09-18] MEDS ORDERED: POVIDONE IODINE TP ONE (10:30)
[2017-09-18] MEDS ORDERED: CHLORHEXIDINE GLUC HIBICLENS 118 ML BTL TP ONE (10:45)
[2017-09-18] MEDS: OXYCODONE/APAP 5/325 TAB PO PRN (10:52)
--- NOTE | 2017-09-18 10:53 | PDCARPN ---
Cardiology Progress Note Chief Complaint: Patient is without complaints (outside of the fact that he has a large left sided haematoma) Assessment/Plan: Assessment: Patient is a 52 y/o male with history of non ischaemic CMP with VF s/p ICD ( with recent gen change and pocket revision), AVR, MVR, RADHA occlusion, and HOCM s /p septal myomectomy and septal ablation (in past), who was readmitted post ICD gen change/pocket revision, after haematoma noted. Late last week, Dr. Gloria Baker, evacuated the haematoma (about two days ago) and performed manual pressure yesterday. Today, nursing appreciated some lateral, lower incisional bleeding (uncertain on etiology). Patient is without cardiovascular complaints. The pocket site itself has not been tender for the patient (at least today). Plan: Recommendations for the dressing to be changed today (after recleaning the external site). Light pressure to be applied to the haematoma (not with intent to express fluid necessarily, but to ascertain size and extent of the haematoma) . Subjective: Patient is doing well. He also reports that the size of the haematoma (if anything) is smaller than it was prior Objective: Vital Signs (8 Hrs) Temp Pulse Resp BP Pulse Ox 09/18/17 08:16 36.8 C 76 16 109/70 91 L 09/18/17 04:26 71 15 106/70 92 Intake/Output (24 Hrs) 09/17/17 09/18/17 09/19/17 05:59 05:59 05:59 Intake Total 775 1100 Output Total 600 5 Balance 175 1095 Intake: Oral (ml) 775 1100 Output: Urine (ml) 600 5 Toilet 600 5 Other: Intake Quantity Yes Sufficient Number of Voids Toilet 3 Number of Stools Toilet 0 Objective: General: Sitting up in the chair, in no acute distress. Skin: Raised area of fluctuance around pacemaker site. Bandage with moderate amount of bloody discharge at the bottom. Result Diagrams: 09/18/17 04:22 09/17/17 03:26 - Physical Exam Constitutional: WDWN, healthy appearing, no apparent distress Eyes: PERRL, EOMI Ears, Nose, Mouth, Throat: moist mucous membranes Cardiovascular: no murmurs, no rubs, pulses symmetric bilat, No jugular vein distention Peripheral Pulses: 2+: dorsalis-pedis (R), dorsalis-pedis (L) Respiratory: clear to auscultate bilat, no crackles, no wheezes Gastrointestinal: normoactive bowel sounds Skin: no edema (to LE), other (large left subclavian pacer/ICD pocket haematoma) Musculoskeletal: no muscular tenderness Neurologic: AAOx3, CN II-XII grossly intact Psychiatric: cooperative, interactive, following commands ICD10 Worksheet Patient Problems: Problems Problem Status Onset Acute blood loss anemia Acute Mitral valve insufficiency and aortic valve insufficiency Acute S/P ablation of ventricular arrhythmia Acute ~04/14/17 S/P aortic valve replacement with bioprosthetic valve Acute ~04/14/17 S/P mitral valve replacement with bioprosthetic valve Acute ~04/14/17 S/P ventricular septal myectomy Acute ~04/14/17 s/p LV epicardial lead placement x 2 Acute ~04/14/17 Hypertrophic cardiomyopathy Chronic NSVT (nonsustained ventricular tachycardia) Chronic Presence of combination internal cardiac defibrillator (ICD) and pacemaker Chronic
[2017-09-18 12:59] VITALS: BP 122/89
--- NOTE | 2017-09-18 15:27 | ASMTCMCOM ---
CM Note CM Note Notes: 09/18/2017 Case Management Note Met w/pt to discuss d/c needs. 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 Neighbors are watching his son while he is here at [facility]. Referred to [facility] for d/c supports. Pt has returned to work, is able to obtain groceries and prepare meals and is independent in ADL's. Case Management d/c poc: independent with follow up as directed. Case Management available if needs change. Date Signed: 09/18/2017 03:26 PM Electronically Signed By:Kenyatta Simpson RN
--- NOTE | 2017-09-18 15:53 | ASDISCHSUM ---
Discharge Information Plan Status:Home with No Needs Medically Cleared to Leave:09/18/2017 Discharge Date:09/18/2017 CM D/C Disposition:Home, Routine, Self-Care ADT D/C Disposition: Projected Discharge Date:09/18/2017 Transportation at D/C:Self Discharge Delay Reason: Follow-Up Date:09/18/2017 Discharge Slot: Final Diagnosis: Placement Information Patient Contact Information Contact Name:PHILLIP Relationship:Friend Address: City:[place] Alternate Phone: [facility] Code:[place] Email: Financial Information Financial Class:Medicaid Primary Plan Desc:MEDICAID [facility] [place] Primary Plan Number:[id number] Secondary Plan Desc: Secondary Plan Number: Assessment Information [facility] CM Progress Note CM Note CM Note Notes: Pt is s/p pacer placement and MVR 09/07/17. He was in the ED 09/09/17 for redness at the pacemaker insertion site and admitted yesterday for a hematoma at the AICD insertion site which has been evacuated. CM will follow for any d/c needs. Date Signed: 09/16/2017 02:32 PM Electronically Signed By:SUZIE Galindo LACE LACGayla Length of stay for Answers: 2 days current admission Acuity / Level of Answers: Yes Care: Did the patient have an inpatient admission? Comorbidities - select Answers: Coronary Artery Disease all that apply Other Notes: pacer, s/p CABG # of Emergency department Answers: 3-4 visits in the last 6 months Score: 11 Date Signed: 09/18/2017 03:52 PM Electronically Signed By:Kenyatta Simpson RN [facility] CM Progress Note CM Note CM Note Notes: 09/18/2017 Case Management Note Met w/pt to discuss d/c needs. 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 Neighbors are watching his son while he is here at [facility]. Referred to [facility] for d/c supports. Pt has returned to work, is able to obtain groceries and prepare meals and is independent in ADL's. Case Management d/c poc: independent with follow up as directed. Case Management available if needs change. Date Signed: 09/18/2017 03:26 PM Electronically Signed By:Kenyatta Simpson RN Case Management Discharge Plan Note Case Management Discharge Discharge Order Complete? Answers: Yes Patient to Obtain Answers: Independently Medications Transportation Arranged Answers: Other Notes: self Discharge Comments Notes: 09/18/2017 Case Management Note Pt to d/c independent with follow up as directed. Date Signed: 09/18/2017 03:51 PM Electronically Signed By:Kenyatta Simpson RN Intervention Information
--- NOTE | 2017-09-18 16:28 | GDS ---
[f rep st] DISCHARGE SUMMARY ADMISSION DIAGNOSES: 1. Large left-sided hematoma, status post generator change. 2. Nonischemic cardiomyopathy with ventricular fibrillation, status post implantable cardioverter defibrillator. 3. Aortic valve replacement. 4. Mitral valve replacement. 5. Left atrial appendage occlusion. DISCHARGE DIAGNOSES: 1. Left sided hematoma with improvement. 2. Nonischemic cardiomyopathy with ventricular fibrillation, status post implantable cardioverter defibrillator. 3. Aortic valve replacement. 4. Mitral valve replacement. 5. Left atrial appendage occlusion. HOSPITAL COURSE: The patient is a 52-year-old male with history of nonischemic cardiomyopathy with ventricular fibrillation, status post ICD, recent generator change and pocket revision, AVR, MVR, LA occlusion and cardiomyopathy, post septal myectomy and septal ablation in the past. He was readmitted post ICD generator change/pocket revision after a hematoma was noted. Dr. Mariano Baker evacuated a hematoma after his ICD generator change and he evacuated on a hematoma on this admission. Dr. Baker performed manual pressure yesterday for approximately 30 minutes. This morning, some lateral lower incisional bleeding was noted. The dressing was changed this morning. At this time, there is no bleeding; however, he does have some discoloration of likely serosanguineous fluid in the lower corner of the dressing. At this time, the patient is not in pain associated with the hematoma. There is no visible increased area of possible bleeding. The pocket site, itself, is not tender. The patient has done well through the day today. It is felt that he can be discharged using a sling to stabilize the arm and left pectoral area. He is in agreement with this plan. At this time, he is stable for discharge. PHYSICAL EXAMINATION: VITAL SIGNS: Blood pressure at noon today 122/89, heart rate 71 and regular, temperature 35.3 Celsius. His telemetry shows a regular paced rhythm. HEART: Rate is regular. No murmurs, rubs, gallops. LUNGS: Sounds are clear to auscultation. SKIN: Left pectoral incision site is intact with no increased area related to the hematoma. DISCHARGE MEDICATIONS: He will go home on omega-3 fatty acid 1000 mg daily, Protonix 40 mg at bedtime, aspirin 81 mg daily, Flexeril 10 mg 3 times a day as needed for spasms, Ambien 5 mg at bedtime as needed, Coumadin 5 mg every 2 days at 1600, metoprolol tartrate 75 mg b.i.d., Coumadin 2.5 mg every 2 days at 1600 , hydrocodone/APAP 10/325 mg 1 tablet daily as needed for pain, Elavil 25 mg at bedtime as needed for sleep. DISCHARGE INSTRUCTIONS/FOLLOWUP: 1. He will go home with device precautions. a. No lifting more than 10 pounds for 1 week with left arm. b. No shower, getting incision wet until after wound check on 09/20/2017. c. No submerging incision site until completely healed. d. Home with a sling to assist and facilitate healing. He is to wear this until he sees Dr. Baker on 09/20/2017. e. Watch for signs of infection (fever, redness, swelling, drainage, night sweats, or chills) call Dr. Baker's office immediately if experiencing any unusual symptoms [phone]. f. No lifting left arm higher than shoulder height for the next 6 weeks. g. No strenuous exercise for 2 weeks. 2. Follow up with Dr. Baker on 09/20/2017, at 10:30 a.m. 3. Call [facility] with any questions or concerns. 4. At this time, he understands his restrictions. He agrees to use the sling continuously until he sees Dr. Baker. CONDITION ON DISCHARGE: At this time, he currently is stable for discharge. /[id number]/MODL MTDD
== END 2017-09-18 16:08 | disposition home or self-care (01) | DRG 793 ==
LOC: FCATH 09:27 → F2W 15:27 → OBSVTOIN 09-16 13:59
PROVIDERS: ADMIT Internal Medicine Cardiovascular Disease; ATTEND Internal Medicine Cardiovascular Disease
PROC: 0J960ZZ Drainage of Chest Subcutaneous Tissue and Fascia, Open Approach (ICD-10-PCS; principal; 2017-09-16)
DX: M96.841 Postprocedural hematoma of a musculoskeletal structure following other procedure (principal); I42.1 Obstructive hypertrophic cardiomyopathy; I47.2 Ventricular tachycardia; I51.3 Intracardiac thrombosis, not elsewhere classified; Z95.810 Presence of automatic (implantable) cardiac defibrillator; I25.10 Atherosclerotic heart disease of native coronary artery without angina pectoris; Z95.2 Presence of prosthetic heart valve; Z79.01 Long term (current) use of anticoagulants; Z79.82 Long term (current) use of aspirin
CPT/HCPCS: A4649; G0378; J0690; J2250; J2370; J2704; J3010; J3370